=== PATIENT | female | born 1955 | race Caucasian/White ===

== ENCOUNTER → 2020-02-25 09:49 | Outpatient (BNVA) | payer OTHER, SELFPAY | PROVIDERS: PCP Internal Medicine; Referring Provider Internal Medicine; Visit Provider Nurse Practitioner Gerontology | DX: E10.65 Type 1 diabetes mellitus with hyperglycemia (principal); E10.40 Type 1 diabetes mellitus with diabetic neuropathy, unspecified; E78.5 Hyperlipidemia, unspecified; E03.9 Hypothyroidism, unspecified; Z96.41 Presence of insulin pump (external) (internal) | CPT/HCPCS: 82947 ==

== ENCOUNTER → 2020-03-24 11:15 | Outpatient (BNVA) | payer OTHER, SELFPAY | PROVIDERS: PCP Internal Medicine; Visit Provider Nurse Practitioner Gerontology | DX: E10.65 Type 1 diabetes mellitus with hyperglycemia (principal); E10.40 Type 1 diabetes mellitus with diabetic neuropathy, unspecified; Z96.41 Presence of insulin pump (external) (internal); E03.9 Hypothyroidism, unspecified; Z79.899 Other long term (current) drug therapy | CPT/HCPCS: 82947 ==

== ENCOUNTER 2020-04-07 09:33 | Day surgery (SDC) | payer OTHER, SELFPAY ==
[2020-04-02 09:59] VITALS: BMI 27.9
--- NOTE | 2020-04-04 09:47 | P.CONAN_ITS ---
Documented by User: Esme Jaimes 04/04/20 09:50 HPI - Anesthesia Eval Consult details Narrative: 64yo F for Colonoscopy PMFSH Past Medical History Medical History Carpal tunnel syndrome Depression with anxiety Hx of small bowel obstruction Hyperlipidemia LDL goal <100 Hypothyroidism, unspecified Type 1 diabetes mellitus with diabetic neuropathy Type 1 diabetes mellitus with hyperglycemia Family History Family History Father CVD (cardiovascular disease) CHF (congestive heart failure) Mother Diabetes mellitus Paternal Grandfather Diabetes mellitus Paternal Grandmother Diabetes mellitus Sister Diabetes mellitus Surgical History Surgical History Hx laparoscopic cholecystectomy Hx of colonoscopy Hx of esophagogastroduodenoscopy Hx of hysterectomy Social History Social History Are you a primary rn primary care to a significant other at home: No Do you presently have visiting nurse or other home services: No Smoking Status: Former smoker Smoking Quit Date: 35 yrs ago Use of substances other than those prescribed or required for medical reasons: Yes Substance Use Frequency: Occasionally Advance Directives: No Advance Directives Information Provided: No Advance Directives on File: No Meds Allergies Allergy/AdvReac Type Severity Reaction Status Date / Time No Known Allergies Allergy Unverified 02/25/20 10:25 [No Known Allergies*] Home Medications Medication Instructions Recorded Confirmed Type aspirin 81 mg tablet,delayed 81 mg PO DAILY 02/25/20 04/02/20 History release lisinopril 10 mg tablet 10 mg PO DAILY 02/25/20 04/02/20 History simvastatin 20 mg tablet 20 mg PO BEDTIME 02/25/20 04/02/20 History citalopram 40 mg tablet 40 mg PO DAILY tab 03/24/20 04/02/20 History multivitamin 1 tab PO DAILY 04/02/20 04/02/20 History Exam Exam Date and Time: April 04, 2020 0947 Height,Weight and Vital Signs: Height 5 ft 4 in Weight 73.936 kg Pertinent Lab Results Pertinent Lab Results: Laboratory Tests 01/14/20 01/14/20 08:10 10:31 WBC 13.3 H Hgb 13.4 Hct 39.0 Plt Count 272 Sodium 140 Potassium 4.1 Chloride 109 H BUN 22 H Creatinine 0.94 Assessment and Plan Assessment Anesthesia Assessment: Chart Reviewed Documented by User: Basil Ramos 04/07/20 10:43 PMFSH Past Medical History Medical History Carpal tunnel syndrome Depression with anxiety Hx of small bowel obstruction Hyperlipidemia LDL goal <100 Hypothyroidism, unspecified Type 1 diabetes mellitus with diabetic neuropathy Type 1 diabetes mellitus with hyperglycemia Family History Family History Father CVD (cardiovascular disease) CHF (congestive heart failure) Mother Diabetes mellitus Paternal Grandfather Diabetes mellitus Paternal Grandmother Diabetes mellitus Sister Diabetes mellitus Surgical History Surgical History Hx laparoscopic cholecystectomy Hx of colonoscopy Hx of esophagogastroduodenoscopy Hx of hysterectomy Social History Social History Are you a primary rn primary care to a significant other at home: No Do you presently have visiting nurse or other home services: No Smoking Status: Former smoker Smoking Quit Date: 35 yrs ago Use of substances other than those prescribed or required for medical reasons: Yes Substance Use Frequency: Occasionally Advance Directives: No Advance Directives Information Provided: No Advance Directives on File: No Meds Allergies Allergy/AdvReac Type Severity Reaction Status Date / Time No Known Allergies Allergy Unverified 02/25/20 10:25 [No Known Allergies*] Home Medications Medication Instructions Recorded Confirmed Type aspirin 81 mg tablet,delayed 81 mg PO DAILY 02/25/20 04/02/20 History release lisinopril 10 mg tablet 10 mg PO DAILY 02/25/20 04/02/20 History simvastatin 20 mg tablet 20 mg PO BEDTIME 02/25/20 04/02/20 History citalopram 40 mg tablet 40 mg PO DAILY tab 03/24/20 04/02/20 History multivitamin 1 tab PO DAILY 04/02/20 04/02/20 History Exam Airway Mallampati Class: II TM Dist: >3cm Neck ROM: Full Loose/Missing/Broken Teeth: No Heart: rrr+[id number] Lungs: cta b/l Assessment and Plan Assessment Anesthesia Assessment: Anesthesia Plan Discussed, PAT Visit and Chart Reviewed Final Anesthetic Review NPO: Yes ASA Class: III Final Preanesthetic Review: No Changes in Pt Med Stat, Meds/Allgs Chart Reviewed, Consent Obtained/Reviewed and Anes Risks/Benef Reviewed Patient Risk: Intermediate Procedure Risk: Low Assessment/Block/Sedation in SS: Assess/Block/Sedation-SS Anesthetic Plan Anesthetic Plan: MAC: Disposition: Standard PACU
[2020-04-07 10:03] VITALS: BP 110/74; PULSE 73; RESP 18; TEMP 36.2; O2SAT 99
[2020-04-07] MEDS: Lactated Ringers 1,000 ML 100 ML IVCONT (10:32)
[2020-04-07 12:06] VITALS: BP 131/94; PULSE 67; RESP 16; TEMP 36.4; O2SAT 98
[2020-04-07] MEDS: ondansetron HCL 4 MG/2 ML VIAL IVPUSH (12:07)
--- NOTE | 2020-04-07 12:07 | PM.OP ---
Brief Operative Note Date of Service: 04/07/20 Pre-op diagnosis: Screening Post-op diagnosis: other (Diverticulosis, Internal hemorrhoids) Procedure: Colonoscopy to cecum and TI Surgeon: Arden Griffin Anesthesia: MAC Estimated blood loss (mL): 0 Pathology: none sent Condition: stable Disposition: PACU
[2020-04-07 12:21] VITALS: BP 107/58; PULSE 62; RESP 18; TEMP 36.4; O2SAT 99
--- NOTE | 2020-04-07 12:22 | OP_ITS ---
SURGEON: Arden Griffin MD INDICATIONS: The patient presents for evaluation of colorectal cancer screening. Full consent has been obtained from her for this, including risks of bleeding and perforation. PREOPERATIVE DIAGNOSIS: Colorectal cancer screening. POSTOPERATIVE DIAGNOSIS: PROCEDURE PERFORMED: Colonoscopy to cecum and terminal ileum. ESTIMATED BLOOD LOSS: COMPLICATIONS: ANESTHESIA: Monitored anesthesia care. ASSISTANTS: SPECIMENS: POSTOPERATIVE DIAGNOSES: Colorectal cancer screening, diverticulosis and internal hemorrhoids. DESCRIPTION OF PROCEDURE: The patient was placed in the left lateral decubitus position. The digital rectal exam revealed no abnormalities. The Olympus video pediatric colonoscope was entered into the rectum and advanced easily to the cecum. Once in the cecum, I did identify normal-appearing cecal pouch with appendiceal orifice and a normal-appearing ileocecal valve. The terminal ileum was cannulated and appeared normal. The scope was withdrawn back in the colon. The entire cecum and ileocecal valve appeared normal. The scope was slowly withdrawn assessing all mucosal surfaces carefully. Preparation was excellent. I did not visualize any sign of polyps, colitis, nor angiodysplasia. There was a mild amount of sigmoid diverticulosis. In the rectum, scope was retroflexed visualizing small internal hemorrhoids, but no other pathology. The rectal mucosa appeared normal. The scope was straightened out and withdrawn from the patient. She tolerated the procedure well and was returned to the recovery area in stable condition. IMPRESSION: 1. Sigmoid diverticulosis. 2. Internal hemorrhoids. PLAN: Given the patient's negative exam and negative family history of colon cancer, I would recommend a repeat screening colonoscopy in 10 years for further screening. She will otherwise see me on a p.r.n. basis. MD CRISTIAN Colvin/KIKI / [phone]
--- NOTE | 2020-04-07 12:33 | HO.POSTANES ---
Post Anesthesia Evaluation Post Anesthesia Evaluation Vital Signs: Vital Signs Temp Pulse Resp BP Pulse Ox 04/07/20 12:21 97.6 F 62 18 107/58 L 99 04/07/20 12:06 97.6 F 67 16 131/94 H 98 04/07/20 10:03 97.1 F 73 18 110/74 99 Anesthesia: Monitored Mental Status: Awake Pain Control: Satisfactory Nausea/Vomiting: None Hydration: Adequate Anesthesia-Related Issues: No Anes. Related Issues
== END 2020-04-07 14:01 | disposition home or self-care (01) ==
PROVIDERS: PCP Internal Medicine; Visit Provider Internal Medicine
PROC: 0DJD8ZZ Inspection of Lower Intestinal Tract, Via Natural or Artificial Opening Endoscopic (ICD-10-PCS; CPT 45378; principal; 2020-04-07 10:30)
DX: Z12.11 Encounter for screening for malignant neoplasm of colon (principal); K57.30 Diverticulosis of large intestine without perforation or abscess without bleeding; K64.8 Other hemorrhoids; E10.9 Type 1 diabetes mellitus without complications; Z96.41 Presence of insulin pump (external) (internal); Z80.0 Family history of malignant neoplasm of digestive organs
CPT/HCPCS: 45378; J2405

== ENCOUNTER → 2020-05-09 10:56 | Outpatient (BNVA) | payer OTHER, SELFPAY | PROVIDERS: PCP Internal Medicine; Visit Provider Dietitian, Registered | DX: Z76.89 Persons encountering health services in other specified circumstances (principal) ==

== ENCOUNTER → 2020-06-06 11:28 | Outpatient (BNVA) | payer OTHER, SELFPAY | PROVIDERS: PCP Internal Medicine; Visit Provider Dietitian, Registered ==

== ENCOUNTER 2020-09-02 09:04 | Outpatient (REF) | payer OTHER, SELFPAY ==
--- NOTE | ~2020-09-02 | XR_ITS ---
EXAMINATION: RIGHT KNEE AND RIGHT FOOT. CLINICAL INFORMATION: Unspecified fall. Pain. COMPARISON: None TECHNIQUE: 4 views right knee and 3 views right foot. FINDINGS: RIGHT KNEE: There is moderate suprapatellar joint effusion. Mild reduction in the medial and patellar femoral compartment joint space seen. There is no visible acute fracture, dislocation or subluxation seen. RIGHT FOOT: There is no visible acute fracture, dislocation or subluxation seen. The soft tissues are normal. The ankle mortise and subtalar joints are normal. There is a small retrocalcaneal enthesophyte. XR/XR foot RT min 3V IMPRESSION: Mild degenerative changes medial and patellofemoral compartments with moderate suprapatellar joint effusion. No acute fracture, dislocation or loose bodies seen. Small retrocalcaneal enthesophyte. No visible acute fracture or dislocation right foot.
--- NOTE | ~2020-09-02 | XR_ITS ---
EXAMINATION: RIGHT KNEE AND RIGHT FOOT. CLINICAL INFORMATION: Unspecified fall. Pain. COMPARISON: None TECHNIQUE: 4 views right knee and 3 views right foot. FINDINGS: RIGHT KNEE: There is moderate suprapatellar joint effusion. Mild reduction in the medial and patellar femoral compartment joint space seen. There is no visible acute fracture, dislocation or subluxation seen. RIGHT FOOT: There is no visible acute fracture, dislocation or subluxation seen. The soft tissues are normal. The ankle mortise and subtalar joints are normal. There is a small retrocalcaneal enthesophyte. XR/XR knee RT 4V IMPRESSION: Mild degenerative changes medial and patellofemoral compartments with moderate suprapatellar joint effusion. No acute fracture, dislocation or loose bodies seen. Small retrocalcaneal enthesophyte. No visible acute fracture or dislocation right foot.
== END 2020-09-02 09:05 | disposition home or self-care (01) ==
LOC: HO.HMGCX 09:04
PROVIDERS: PCP Internal Medicine; Visit Provider Nurse Practitioner Family
DX: M79.671 Pain in right foot (principal); M25.561 Pain in right knee; Z91.81 History of falling
CPT/HCPCS: 73564; 73630

== ENCOUNTER → 2020-09-05 08:10 | Outpatient (BNVA) | payer OTHER, SELFPAY | PROVIDERS: Visit Provider Physician Assistant ==

== ENCOUNTER → 2020-10-16 08:30 | Outpatient (BNVA) | payer OTHER, SELFPAY | PROVIDERS: PCP Internal Medicine; Visit Provider Nurse Practitioner Gerontology | DX: E10.65 Type 1 diabetes mellitus with hyperglycemia (principal); E10.40 Type 1 diabetes mellitus with diabetic neuropathy, unspecified; E03.9 Hypothyroidism, unspecified; E78.5 Hyperlipidemia, unspecified | CPT/HCPCS: 82947 ==

== ENCOUNTER → 2021-02-25 14:58 | Outpatient (BNVA) | payer OTHER, SELFPAY | PROVIDERS: PCP Internal Medicine; Visit Provider Registered Nurse Diabetes Educator ==

== ENCOUNTER → 2021-03-19 07:58 | Outpatient (BNVA) | payer OTHER, SELFPAY | PROVIDERS: PCP Internal Medicine; Visit Provider Registered Nurse Diabetes Educator ==

== ENCOUNTER → 2021-04-02 08:31 | Outpatient (BNVA) | payer OTHER, SELFPAY | PROVIDERS: PCP Internal Medicine; Visit Provider Registered Nurse Diabetes Educator ==

== ENCOUNTER 2021-06-23 08:01 | Outpatient (REF) | payer OTHER, SELFPAY ==
[2021-06-23 12:15] LABS: Free T4 (Free Thyroxine) 1.01 ng/dL (0.71-1.85); Thyroid Stimulating Hormone 9.78 uIU/mL (0.32-4.0)
[2021-06-23 12:17] LABS: Alanine Aminotransferase 39 U/L (0-31); Albumin Level 4.2 g/dL (3.5-5.0); Alkaline Phosphatase 100 U/L (39-117); Anion Gap 13 (12-20); Aspartate Amino Transferase 31 U/L (5-31); Bilirubin Total 0.5 mg/dL (0.0-1.0); Blood Urea Nitrogen 14 mg/dL (9-16); Calcium 9.6 mg/dL (8.4-10.2); Carbon Dioxide 27 mmol/L (22-29); Chloride 103 mmol/L (96-108); Cholesterol 164 mg/dL; Estimated Glomerular Filt Rate 53; Glucose Fasting 233 mg/dL (60-99); HDL Cholesterol 78 mg/dL; LDL Cholesterol Calculated 73 mg/dl; Potassium 4.5 mmol/L (3.3-5.1); Sodium 138 mmol/L (135-145); Total Protein 6.7 g/dL (6.5-8.0); Triglycerides 66 mg/dL
[2021-06-23 12:37] LABS: Creatinine Urine 92.47 mg/dL; Microalbumin Urine < 5.0 mg/L
== END 2021-06-23 08:02 | disposition home or self-care (01) ==
LOC: HO.HMGCLDS 08:01
PROVIDERS: PCP Internal Medicine; Visit Provider Nurse Practitioner Gerontology
DX: E10.65 Type 1 diabetes mellitus with hyperglycemia (principal); E03.9 Hypothyroidism, unspecified
CPT/HCPCS: 36415; 80053; 80061; 82043; 84439; 84443

== ENCOUNTER → 2021-07-15 08:34 | Outpatient (BNVA) | payer OTHER, SELFPAY | PROVIDERS: PCP Internal Medicine; Visit Provider Nurse Practitioner Gerontology | DX: E10.65 Type 1 diabetes mellitus with hyperglycemia (principal); E10.40 Type 1 diabetes mellitus with diabetic neuropathy, unspecified; E78.5 Hyperlipidemia, unspecified; E03.9 Hypothyroidism, unspecified; E66.09 Other obesity due to excess calories; Z68.30 Body mass index [BMI] 30.0-30.9, adult; Z96.41 Presence of insulin pump (external) (internal) | CPT/HCPCS: 82947; 83036 ==

== ENCOUNTER → 2021-10-15 08:19 | Outpatient (BNVA) | payer OTHER, SELFPAY | PROVIDERS: PCP Internal Medicine; Visit Provider Nurse Practitioner Gerontology | DX: E10.65 Type 1 diabetes mellitus with hyperglycemia (principal); E10.40 Type 1 diabetes mellitus with diabetic neuropathy, unspecified; E78.5 Hyperlipidemia, unspecified; E03.9 Hypothyroidism, unspecified; Z79.4 Long term (current) use of insulin; Z96.41 Presence of insulin pump (external) (internal) | CPT/HCPCS: 82947; 83036 ==

== ENCOUNTER 2021-12-28 16:02 | Outpatient (REF) | payer OTHER, SELFPAY ==
--- NOTE | ~2021-12-28 | XR_ITS ---
EXAMINATION: XR CHEST CLINICAL INFORMATION: Covid 19 COMPARISON: Chest 05/14/2019 TECHNIQUE: 2 views of the chest were obtained. FINDINGS: No significant abnormality is noted involving the heart, lungs, mediastinum, bony thorax or soft tissues. XR/XR chest 2V IMPRESSION: Unremarkable chest examination.
== END 2021-12-28 16:03 | disposition home or self-care (01) ==
LOC: HO.XRAY 16:02
PROVIDERS: PCP Internal Medicine; Visit Provider Internal Medicine
DX: U07.1 COVID-19 (principal)
CPT/HCPCS: 71046

== ENCOUNTER → 2022-01-19 08:55 | Outpatient (BNVA) | payer OTHER, SELFPAY | PROVIDERS: PCP Internal Medicine; Visit Provider Internal Medicine Endocrinology, Diabetes & Metabolism | DX: E10.40 Type 1 diabetes mellitus with diabetic neuropathy, unspecified (principal); E03.9 Hypothyroidism, unspecified; Z79.4 Long term (current) use of insulin; Z96.41 Presence of insulin pump (external) (internal) | CPT/HCPCS: 82947; 83036 ==

== ENCOUNTER 2022-03-10 07:58 | Outpatient (AMB) | payer OTHER, SELFPAY ==
--- NOTE | 2022-03-10 08:43 | MHC.AMDMED ---
Intake Intake Visit Reasons: DM with pump and sensor Allergies No Known Allergies [No Known Allergies*] Allergy (Verified 06/15/23 08:50) HPI Comprehensive Diabetes Asmnt Most Recent Diabetes Results: Cholesterol 174 mg/dL 10/04/22 HDL Cholesterol 75 mg/dL 10/04/22 Triglycerides 68 mg/dL 10/04/22 Creatinine 0.93 mg/dL (0.5-1.4) 10/04/22 Blood Urea Nitrogen 12 mg/dL (9-16) 10/04/22 Sodium 142 mmol/L (135-145) 10/04/22 Potassium 4.4 mmol/L (3.3-5.1) 10/04/22 Chloride 106 mmol/L (96-108) 10/04/22 Carbon Dioxide 28 mmol/L (22-29) 10/04/22 Calcium 9.6 mg/dL (8.4-10.2) 10/04/22 AST 37 U/L (5-31) H 10/04/22 ALT 32 U/L (0-31) H 10/04/22 Total Protein 6.7 g/dL (6.5-8.0) 10/04/22 Albumin 4.0 g/dL (3.5-5.0) 10/04/22 [facility] Medical History (Updated 03/01/23 @ 11:32 by Daniel Wayne MD) Obesity due to excess calories Hx of small bowel obstruction Carpal tunnel syndrome Depression with anxiety Type 1 diabetes mellitus with hyperglycemia Type 1 diabetes mellitus with diabetic neuropathy Hyperlipidemia LDL goal <100 Hypothyroidism, unspecified Surgical History Hx of esophagogastroduodenoscopy Hx laparoscopic cholecystectomy Hx of hysterectomy Hx of colonoscopy Family History Father CVD (cardiovascular disease) CHF (congestive heart failure) Mother Diabetes mellitus Paternal Grandfather Diabetes mellitus Paternal Grandmother Diabetes mellitus Sister Diabetes mellitus Pancreatic cancer Brother Pancreatic cancer Social History Household Members: Significant Other Housing: House Are you a primary care transport nurse to a significant other at home: No Do you presently have visiting nurse or other home services: No Alcohol intake: current Alcohol intake frequency: holidays/special occasions only Patient Tobacco Use Status: Former Tobacco user Quit Date: 1984 e-Cigarette/Vaping Use: Never Used Second Hand Smoke Exposure: No service: No Current occupational status: employed Current occupation: [employer] Cognitive needs: No Hearing needs: No Vision needs: Yes (glass) Assessment & Plan Assessment & Plan (1) Type 1 diabetes mellitus with hyperglycemia: Code(s): E10.65 - Type 1 diabetes mellitus with hyperglycemia Plan: Patient presents for pump training for . The following topics were reviewed today: - When to change set or Pod - How to interpret data - Linking Meter and CGM to pump - Inserting infusion set or Pod site rotation - Rules about when to test for ketones - Sensor setting (if applicable) ??? High Alert: mg/dl ??? Low Alert: mg/dl ???Coefficient variation: - Start new sensor Basal rate(s) (units/hour) : 12AM? to 5AM? 0.9 units / hr 5AM? to 8AM? 0.840 units / hr 8AM? to 12PM? 0.960 units / hr 12PM? to 2PM? 0.9 units / hr 2PM? to 9PM? 0.9 units / hr 9PM? to 12AM? 0.880 units / hr Bolus setting Insulin Carbohydrate Ratio (s) 12AM? to 5AM? 1u:8CHO 5AM? to 8AM? ? 1u:8CHO 8AM? to 12PM? 1u:6CHO 12PM? to 2PM? 1u:4.5CHO 2PM? to 9PM? ? 1u:6CHO 9PM? to 12AM? 1u:8CHO ? Correction Factor / Sensitivity Factor 12AM? to 5AM? 1u:45 5AM? to 8AM? ? 1u:45 8AM? to 12PM? 1u:40 12PM? to 2PM? 1u:40 2PM? to 9PM? ? 1u:40 9PM? to 12AM? 1u:45 ? Active Insulin Time:? 4 hours Target(s): 12AM? to 12AM 120mg/dL Coding Level of Care Code Est Pt Level 1 (30002) Diagnoses Type 1 diabetes mellitus with hyperglycemia E10.65
== END 2022-03-10 08:51 | disposition home or self-care (01) ==
LOC: HO.ENCR 07:58
PROVIDERS: PCP Internal Medicine; Visit Provider Registered Nurse Diabetes Educator
DX: E10.65 Type 1 diabetes mellitus with hyperglycemia (principal)

== ENCOUNTER → 2022-03-10 07:58 | Outpatient (BNVA) | payer OTHER, SELFPAY | PROVIDERS: PCP Internal Medicine; Visit Provider Registered Nurse Diabetes Educator | DX: E10.65 Type 1 diabetes mellitus with hyperglycemia (principal); Z96.41 Presence of insulin pump (external) (internal) | CPT/HCPCS: 99211 ==

== ENCOUNTER 2022-04-20 07:47 | Outpatient (REF) | payer OTHER, SELFPAY ==
[2022-04-20 08:55] LABS: Anion Gap 10 (12-20); Blood Urea Nitrogen 15 mg/dL (9-16); Calcium 9.5 mg/dL (8.4-10.2); Carbon Dioxide 29 mmol/L (22-29); Chloride 105 mmol/L (96-108); Cholesterol 176 mg/dL; Estimated Glomerular Filt Rate > 60; Glucose Random 199 mg/dL (60-115); HDL Cholesterol 75 mg/dL; LDL Cholesterol Calculated 85 mg/dl; Potassium 4.5 mmol/L (3.3-5.1); Sodium 139 mmol/L (135-145); Triglycerides 83 mg/dL
[2022-04-20 09:09] LABS: Thyroid Stimulating Hormone 1.19 uIU/mL (0.32-4.0)
[2022-04-20 13:03] LABS: Free T4 (Free Thyroxine) 1.07 ng/dL (0.71-1.85)
== END 2022-04-20 07:48 | disposition home or self-care (01) ==
LOC: HO.LAB 07:47
PROVIDERS: PCP Internal Medicine; Visit Provider Internal Medicine Endocrinology, Diabetes & Metabolism
DX: E10.40 Type 1 diabetes mellitus with diabetic neuropathy, unspecified (principal); E03.9 Hypothyroidism, unspecified
CPT/HCPCS: 36415; 80048; 80061; 84439; 84443

== ENCOUNTER → 2022-04-21 08:09 | Outpatient (BNVA) | payer OTHER, SELFPAY | PROVIDERS: PCP Internal Medicine; Visit Provider Internal Medicine Endocrinology, Diabetes & Metabolism | DX: E03.9 Hypothyroidism, unspecified (principal); E10.40 Type 1 diabetes mellitus with diabetic neuropathy, unspecified | CPT/HCPCS: 82947; 83036 ==

== ENCOUNTER 2022-07-15 08:19 | Outpatient (REF) | payer OTHER, SELFPAY ==
--- NOTE | ~2022-07-15 | MM_ITS ---
EXAMINATION: MM SCREENING DIGITAL BREAST TOMOSYNTHESIS, BILATERAL CLINICAL INFORMATION: Screening. Asymptomatic. The lifetime risk of breast cancer based on the Tyrer-Cuzick Model is 5.2%. COMPARISON: Mammography: May 24, 2015 and studies dating back to June 23, 2012 TECHNIQUE: Digital breast tomosynthesis is performed in both the craniocaudal and mediolateral oblique views along with computer-aided detection (CAD). Synthesized 2D images are generated from the tomosynthesis. FINDINGS: The breasts are heterogeneously dense, which may obscure small masses (ACR BI-RADS breast composition Category c). There are no significant masses, abnormal calcifications, or other abnormalities. MM/MM tomosynthesis screening BI IMPRESSION: No significant changes ASSESSMENT: BI-RADS 1: Negative RECOMMENDATION: Routine annual mammography screening. This patient's information was entered into a reminder system with a target due date for their next mammogram.
== END 2022-07-15 08:20 | disposition home or self-care (01) ==
LOC: HO.MAMMO 08:19
PROVIDERS: PCP Internal Medicine; Visit Provider Internal Medicine
DX: Z12.31 Encounter for screening mammogram for malignant neoplasm of breast (principal)
CPT/HCPCS: 77063; 77067

== ENCOUNTER 2022-10-04 07:54 | Outpatient (REF) | payer OTHER, SELFPAY ==
[2022-10-04 08:07] LABS: MANUAL DIFF FLAG NO
[2022-10-04 08:41] LABS: Basophils Percent Auto 0.5 % (0-2); Eosinophils Absolute Auto 0.4 X10*3/uL (0.0-0.4); Eosinophils Percent Auto 6.7 % (0-4); Hematocrit 39.2 % (37.0-47.0); Hemoglobin 12.8 g/dl (12.0-16.0); Imm Gran Abs Auto 0.02 X10*3/uL (0.00-0.03); Imm Gran Pct Auto 0.3 % (0.0-0.4); Lymphocytes Absolute Auto 1.8 X10*3/uL (1.2-4.9); Lymphocytes Percent Auto 27.4 % (20-40); Mean Corpuscular HGB Conc 32.7 g/dl (31.0-35.0); Mean Corpuscular Hemoglobin 29.3 pg (27.0-33.0); Mean Corpuscular Volume 89.7 fL (80.0-98.0); Mean Platelet Volume 10.8 fL (9.4-12.3); Monocytes Absolute Auto 0.4 X10*3/uL (0.1-1.2); Neutrophils Absolute Auto 3.9 x10*3/uL (2.0-8.3); Neutrophils Percent Auto 59.1 % (45-73); Platelet Count 239 X10*3/uL (160-400); Red Blood Count 4.37 X10*6/uL (4.20-5.50); Red Cell Distribution Width 13.2 % (11.0-16.0); White Blood Count 6.5 X10*3/uL (4.8-10.8)
[2022-10-04 08:50] LABS: Estimated Average Glucose 154 mg/dL
[2022-10-04 09:26] LABS: Alanine Aminotransferase 32 U/L (0-31); Alkaline Phosphatase 120 U/L (39-117); Anion Gap 12 (12-20); Aspartate Amino Transferase 37 U/L (5-31); Bilirubin Total 0.6 mg/dL (0.0-1.0); Blood Urea Nitrogen 12 mg/dL (9-16); Calcium 9.6 mg/dL (8.4-10.2); Carbon Dioxide 28 mmol/L (22-29); Chloride 106 mmol/L (96-108); Cholesterol 174 mg/dL; Estimated Glomerular Filt Rate > 60; Glucose Fasting 156 mg/dL (60-99); HDL Cholesterol 75 mg/dL; LDL Cholesterol Calculated 86 mg/dl; Potassium 4.4 mmol/L (3.3-5.1); Sodium 142 mmol/L (135-145); Total Protein 6.7 g/dL (6.5-8.0); Triglycerides 68 mg/dL
[2022-10-04 09:30] LABS: Thyroid Stimulating Hormone 2.85 uIU/mL (0.32-4.0)
== END 2022-10-04 07:55 | disposition home or self-care (01) ==
LOC: HO.LAB 07:54
PROVIDERS: PCP Internal Medicine; Visit Provider Internal Medicine
DX: D64.9 Anemia, unspecified (principal); N28.9 Disorder of kidney and ureter, unspecified; E78.5 Hyperlipidemia, unspecified; R73.9 Hyperglycemia, unspecified; E03.9 Hypothyroidism, unspecified
CPT/HCPCS: 36415; 80053; 80061; 83036; 84443; 85025

== ENCOUNTER → 2022-10-27 11:06 | Outpatient (BNVA) | payer OTHER, SELFPAY | PROVIDERS: PCP Internal Medicine; Visit Provider Internal Medicine Endocrinology, Diabetes & Metabolism | DX: E10.40 Type 1 diabetes mellitus with diabetic neuropathy, unspecified (principal); E03.9 Hypothyroidism, unspecified; Z79.899 Other long term (current) drug therapy; Z96.41 Presence of insulin pump (external) (internal) | CPT/HCPCS: 82947 ==

== ENCOUNTER 2022-12-20 09:07 | Outpatient (AMB) | payer OTHER, SELFPAY ==
[2022-12-20 09:11] VITALS: BP 130/68; PULSE 86; O2SAT 99; BMI 29.7
--- NOTE | 2022-12-20 09:11 | MHC.PC.OV ---
Vital Signs 12/20/22 09:11 Height 5 ft 4 in Weight 173 lb BMI 29.7 BP 130/68 Blood Pressure Location Lt brachial Position Sitting Pulse 86 Pulse Source Pulse Oximeter Temp Source Skin Pulse Oximetry (%) 99 Oxygen Delivery Method Room Air Intake Visit Reasons: Diabetic care Sales Order Clerk Required: No Allergies No Known Allergies [No Known Allergies*] Allergy (Verified 12/20/22 09:11) Medication List - Last Reconciled 12/20/22 by Daniel Wayne MD blood sugar diagnostic (FreeStyle Lite Strips) As directed four times a day blood-glucose meter (FreeStyle Lite Meter kit) As directed blood-glucose sensor (Dexcom G6 Sensor device) As directed one every 10 days blood-glucose transmitter (Dexcom G6 Transmitter device) As directed citalopram 40 mg PO DAILY gabapentin 300 mg (3 x 100 mg) PO BEDTIME glucagon 3 mg/actuation (Baqsimi) 3 mg intranasal ONCE insulin glargine (Basaglar KwikPen U-100 Insulin) 21 units (0.21 mL) subcut DAILY insulin lispro up to 75 units SQ daily by pump subcutaneously daily; levothyroxine 100 mcg PO DAILY lisinopril 10 mg PO DAILY multivitamin 1 tab PO DAILY naproxen 500 mg PO BID PRN pen needle, diabetic (BD Ultra-Fine Tania Pen Needle) As directed once daily simvastatin 20 mg PO BEDTIME Tobacco use date assessed: 12/20/22 Fall risk assessment: No Falls in past year Last assessed Fall Risk: 12/20/22 Dental Screening Dental Screen Date: 12/20/22 Did you have a dental visit in the last 12 months?: Yes Did you have a dental problem in the last 6 months where you did not have access to dental care?: No Was dental information given to patient?: Patient has dentist HPI Diabetic care HPI Details IDDM HTN and depression on rx; requests transfer to another [facility]. [facility] Medical History (Updated 12/20/22 @ 10:32 by Daniel Wayne MD) Carpal tunnel syndrome Depression with anxiety Hx of small bowel obstruction Hyperlipidemia LDL goal <100 Hypothyroidism, unspecified Obesity due to excess calories Type 1 diabetes mellitus with diabetic neuropathy Type 1 diabetes mellitus with hyperglycemia Surgical History Hx laparoscopic cholecystectomy Hx of colonoscopy Hx of esophagogastroduodenoscopy Hx of hysterectomy Family History Father CVD (cardiovascular disease) CHF (congestive heart failure) Mother Diabetes mellitus Paternal Grandfather Diabetes mellitus Paternal Grandmother Diabetes mellitus Sister Diabetes mellitus Pancreatic cancer Brother Pancreatic cancer Social History Household Members: Significant Other Housing: House Are you a primary animal care service worker to a significant other at home: No Do you presently have visiting nurse or other home services: No Alcohol intake: current Alcohol intake frequency: holidays/special occasions only Patient Tobacco Use Status: Former Tobacco user Quit Date: 1984 e-Cigarette/Vaping Use: Never Used Second Hand Smoke Exposure: No service: No Current occupational status: employed Current occupation: [employer] Cognitive needs: No Hearing needs: No Vision needs: Yes (glass) Questionnaire PHQ-9 Over the last 2 weeks, how often have you been bothered by any of the following problems? Depression Screening Interpretation: Positive Source: Developed by Drs. Arden Olivia, Noé Shetty and colleagues, with an educational spencer from [email or web address]. Thrive Questionnaire Date Thrive assessed: 06/02/22 Currently or been in a relationship where the following occur: no concerns reported AUDIT C Alcohol Use Questionnaire (AUDIT-C) 1. How often do you have a drink containing alcohol?: 2-3 times a week 2. How many drinks containing alcohol do you have on a typical day when you are drinking?: 1 or 2 3. How often do you have six or more drinks on one occasion?: Never Total Score: 3 Score Reviewed/Action Taken: Yes JN-7 AMB Questionnaire JN-7 Date JN - 7 assessed: 06/02/22 Source: Developed by Drs. Arden Olivia, Noé Shetty and colleagues, with an educational spencer from [email or web address]. Review of Systems Const Denies chills, Denies headache(s) and Denies weight loss ENT Denies headache(s) Card Denies chest pain, Denies syncope, Denies irregular heart rhythm and Denies dyspnea Resp Denies chest congestion, Denies cough and Denies dyspnea GI Denies abdominal pain, Denies change in stool character, Denies nausea and Denies vomiting Musc Denies deformity and Denies joint swelling Neuro Denies syncope and Denies headache(s) Physical exam (Primary Care) Vital Signs: Last Vital Signs Pulse 86 12/20/22 09:11 BP 130/68 12/20/22 09:11 Pulse Ox 99 12/20/22 09:11 Oxygen Delivery Method Room Air 12/20/22 09:11 BMI result Body Mass Index 29.7 Tobacco/Smoking Status: Tobacco use Status Tobacco use date assessed 12/20/22 12/20/22 09:17 Patient Tobacco Use Status Former Tobacco user 12/20/22 09:17 e-Cigarette/Vaping Use Never Used 12/20/22 09:17 Depression Screening Interpretation: Positive Thrive Assessment: Date of Thrive Assessment Date Thrive assessed 06/02/22 12/20/22 09:17 Currently or been in a relationship where the following occur: no concerns reported Advance Care Planning discussion: On file, no changes Forms completed: Health Care Proxy Const General: cooperative, healthy appearing and no acute distress Orientation/consciousness: oriented to person, oriented to place and oriented to time HENMT Head: Yes normal to inspection, Yes normocephalic and Yes atraumatic Mouth: Normal oral and palatal mucosa present and tongue normal Throat: Yes posterior oropharynx normal and Yes uvula midline Eyes General: appearance normal, both eyes and all related structures Neck Neck: Yes normal visual inspection, Yes full ROM and Yes no lymphadenopathy Thyroid: Thyroid normal Carotids: normal carotid upstroke Chest Chest palpation & inspection: normal inspection of the chest Resp Effort & Inspection: normal respiratory effort and able to speak in complete sentences Auscultation: clear to auscultation bilaterally Cardio Jugular venous distension: no JVD Palpation: normal PMI Rate: regular rate Rhythm: regular rhythm Heart sounds: S1 normal heart sound present and S2 normal heart sound present GI Inspection: Yes normal to inspection Palpation (GI): Soft to palpation and No hepatosplenomegaly present Auscultation: normal bowel sounds General: Yes no CVA tenderness Back/Spine/Pelvis Back: no CVA tenderness Skin General skin exam: no rashes or lesions noted Neuro General: oriented to person, oriented to place and oriented to time Extrem General: Yes normal to inspection and Yes full ROM Assessment and Plan Assessment & Plan (1) Type 1 diabetes mellitus with hyperglycemia: Code(s): E10.65 - Type 1 diabetes mellitus with hyperglycemia Plan: stable; same rx (2) Depression with anxiety: Code(s): F41.8 - Other specified anxiety disorders Plan: stable; same rx (3) Hypertension: Code(s): I10 - Essential (primary) hypertension Plan: stable; same rx Orders: Orders Comprehensive [facility]. Panel Fast Today N28.9 - Disorder of kidney and ureter, unspecified Hemoglobin A1c Today R73.9 - Hyperglycemia, unspecified Lipid Panel Today E78.5 - Hyperlipidemia, unspecified Thyroid Stimulating Hormone Today E03.9 - Hypothyroidism, unspecified Microalbumin, Random (w Creat) Today E11.69 - Type 2 diabetes mellitus with other specified complication, E66.01 - Morbid (severe) obesity due to excess calories Complete Blood Count Auto Diff Today D64.9 - Anemia, unspecified Referrals Endocrinology Referral E11.9 - Type 2 diabetes mellitus without complications Coding Level of Care Code Est Pt Level 4 (13201) Diagnoses Type 1 diabetes mellitus with hyperglycemia E10.65 Depression with anxiety F41.8 Hypertension I10 Additional Codes Vital Signs *Quality* - Advance Care Planning discussion: On file, no changes ([id number])
== END 2022-12-20 09:57 | disposition home or self-care (01) ==
PROVIDERS: PCP Internal Medicine; Visit Provider Internal Medicine
DX: E10.65 Type 1 diabetes mellitus with hyperglycemia (principal); F41.8 Other specified anxiety disorders; I10 Essential (primary) hypertension; Z00.00 Encounter for general adult medical examination without abnormal findings
CPT/HCPCS: 1123F; 99214

== ENCOUNTER 2023-03-01 10:39 | Outpatient (AMB) | payer OTHER, SELFPAY ==
--- NOTE | 2023-03-01 10:34 | A.OFFPC_ITS ---
Intake Visit Reasons: Medication follow up [phone] Intake Note: Patient is here to follow up on medication review. Yardage Control Operator Forming Required: No Adobe Ball Mixer: Not Required per policy Accompanied by: Self / Same As Patient Allergies No Known Allergies [No Known Allergies*] Allergy (Verified 03/01/23 10:36) Medication List - Last Reconciled 03/01/23 by Daniel Wayne MD blood sugar diagnostic (FreeStyle Lite Strips) As directed four times a day blood-glucose meter (FreeStyle Lite Meter kit) As directed blood-glucose sensor (Dexcom G6 Sensor device) As directed one every 10 days blood-glucose transmitter (Dexcom G6 Transmitter device) As directed citalopram 40 mg PO DAILY gabapentin 300 mg (3 x 100 mg) PO BEDTIME glucagon 3 mg/actuation (Baqsimi) 3 mg intranasal ONCE insulin lispro up to 75 units SQ daily by pump subcutaneously daily; levothyroxine 100 mcg PO DAILY lisinopril 10 mg PO DAILY multivitamin 1 tab PO DAILY naproxen 500 mg PO BID PRN simvastatin 20 mg PO BEDTIME Tobacco use date assessed: 12/20/22 Fall risk assessment: No Falls in past year Last assessed Fall Risk: 03/01/23 Dental Screening Dental Screen Date: 03/01/23 Did you have a dental visit in the last 12 months?: Yes Did you have a dental problem in the last 6 months where you did not have access to dental care?: No Was dental information given to patient?: Patient has dentist HPI Medication follow up [phone] HPI Details on citalopram for depression but needs an increased dose PFSH Medical History (Updated 03/01/23 @ 11:32 by Daniel Wayne MD) Obesity due to excess calories Hx of small bowel obstruction Carpal tunnel syndrome Depression with anxiety Type 1 diabetes mellitus with hyperglycemia Type 1 diabetes mellitus with diabetic neuropathy Hyperlipidemia LDL goal <100 Hypothyroidism, unspecified Surgical History Hx of esophagogastroduodenoscopy Hx laparoscopic cholecystectomy Hx of hysterectomy Hx of colonoscopy Family History Father CVD (cardiovascular disease) CHF (congestive heart failure) Mother Diabetes mellitus Paternal Grandfather Diabetes mellitus Paternal Grandmother Diabetes mellitus Sister Diabetes mellitus Pancreatic cancer Brother Pancreatic cancer Social History Household Members: Significant Other Housing: House Are you a primary direct support professional caregiver to a significant other at home: No Do you presently have visiting nurse or other home services: No Alcohol intake: current Alcohol intake frequency: holidays/special occasions only Patient Tobacco Use Status: Former Tobacco user Quit Date: 1984 e-Cigarette/Vaping Use: Never Used Second Hand Smoke Exposure: No service: No Current occupational status: employed Current occupation: [employer] Cognitive needs: No Hearing needs: No Vision needs: Yes (glass) Questionnaire Thrive Questionnaire Date Thrive assessed: 06/02/22 JN-7 AMB Questionnaire JN-7 Date JN - 7 assessed: 06/02/22 Source: Developed by Drs. Arden Olivia, Ynes Sprague, Noé Lamas and colleagues, with an educational spencer from [employer]. Review of Systems Const Denies chills, Denies headache(s) and Denies weight loss ENT Denies headache(s) Card Denies chest pain, Denies syncope, Denies irregular heart rhythm and Denies dyspnea Resp Denies chest congestion, Denies cough and Denies dyspnea GI Denies abdominal pain, Denies change in stool character, Denies nausea and Denies vomiting Musc Denies deformity and Denies joint swelling Neuro Denies syncope and Denies headache(s) Physical exam (Primary Care) Tobacco/Smoking Status: Tobacco use Status Tobacco use date assessed 12/20/22 03/01/23 10:35 Patient Tobacco Use Status Former Tobacco user 03/01/23 10:35 e-Cigarette/Vaping Use Never Used 03/01/23 10:35 Thrive Assessment: Date of Thrive Assessment Date Thrive assessed 06/02/22 03/01/23 10:35 Telehealth Telehealth Location of provider rendering services: practice address Location of patient: address on file Patient Identification confirmed using: Name, : Yes Telehealth method: voice only Patient verbally consented to treatment: Yes Patient verbally consented to billing insurance company: Yes Patient informed of any privacy concerns related to visit: Yes Minutes spent on Phone/Video with Pt.: 15 (telephone) Assessment and Plan Assessment & Plan (1) Depression: Code(s): F32.A - Depression, unspecified Plan: increase rx Medications: Changed From citalopram 40 mg PO DAILY 90 tabs 8RF To citalopram 60 mg (1.5 x 40 mg) PO DAILY 135 tabs 8RF Coding Level of Care Code Tele Est Pt Level 3 (88693) Diagnoses Depression F32.A
== END 2023-03-01 11:56 | disposition home or self-care (01) ==
LOC: HO.HMGH 10:39
PROVIDERS: PCP Internal Medicine; Visit Provider Internal Medicine
DX: F32.A Depression, unspecified (principal)
CPT/HCPCS: 99442

== ENCOUNTER 2023-06-15 08:46 | Outpatient (AMB) | payer OTHER, SELFPAY ==
[2023-06-15 08:50] VITALS: BP 118/62; PULSE 75; O2SAT 99; BMI 29.9
--- NOTE | 2023-06-15 08:50 | A.OFFPC_ITS ---
Vital Signs 06/15/23 08:50 Height 5 ft 4 in Weight 174 lb BMI 29.9 BP 118/62 Blood Pressure Location Lt brachial Position Sitting Pulse 75 Pulse Source Pulse Oximeter Pulse Oximetry (%) 99 Oxygen Delivery Method Room Air Intake Visit Reasons: physical Workforce Management Consultant Required: No Mechanics Supervisor: Not Required per policy Accompanied by: Self / Same As Patient Allergies No Known Allergies [No Known Allergies*] Allergy (Verified 06/15/23 08:50) Medication List - Last Reconciled 06/15/23 by Daniel Wayne MD blood sugar diagnostic (FreeStyle Lite Strips) As directed four times a day blood-glucose meter (FreeStyle Lite Meter kit) As directed blood-glucose sensor (Dexcom G6 Sensor device) As directed one every 10 days blood-glucose transmitter (Dexcom G6 Transmitter device) DIRECTED change every 3 months citalopram 40 mg PO DAILY gabapentin 300 mg (3 x 100 mg) PO BEDTIME glucagon 3 mg/actuation (Baqsimi) 3 mg intranasal ONCE insulin lispro (Humalog U-100 Insulin) inject up to 75 units per day via insulin pump subcutaneously daily; levothyroxine 100 mcg PO DAILY lisinopril 10 mg PO DAILY multivitamin 1 tab PO DAILY naproxen 500 mg PO BID PRN simvastatin 20 mg PO BEDTIME Tobacco use date assessed: 06/15/23 Fall risk assessment: No Falls in past year Last assessed Fall Risk: 06/15/23 Dental Screening Dental Screen Date: 06/15/23 Did you have a dental visit in the last 12 months?: Yes Did you have a dental problem in the last 6 months where you did not have access to dental care?: No Was dental information given to patient?: Patient has dentist HPI physical HPI Details DM on insulin pump; sees endo in [place]; hypothyr and hyperlip PFSH Medical History (Updated 03/01/23 @ 11:32 by Daniel Wayne MD) Obesity due to excess calories Hx of small bowel obstruction Carpal tunnel syndrome Depression with anxiety Type 1 diabetes mellitus with hyperglycemia Type 1 diabetes mellitus with diabetic neuropathy Hyperlipidemia LDL goal <100 Hypothyroidism, unspecified Surgical History Hx of esophagogastroduodenoscopy Hx laparoscopic cholecystectomy Hx of hysterectomy Hx of colonoscopy Family History Father CVD (cardiovascular disease) CHF (congestive heart failure) Mother Diabetes mellitus Paternal Grandfather Diabetes mellitus Paternal Grandmother Diabetes mellitus Sister Diabetes mellitus Pancreatic cancer Brother Pancreatic cancer Social History Household Members: Significant Other Housing: House Are you a primary health care aide to a significant other at home: No Do you presently have visiting nurse or other home services: No Alcohol intake: current Alcohol intake frequency: holidays/special occasions only Patient Tobacco Use Status: Former Tobacco user Quit Date: 1984 e-Cigarette/Vaping Use: Never Used Second Hand Smoke Exposure: No service: No Current occupational status: employed Current occupation: [employer] Cognitive needs: No Hearing needs: No Vision needs: Yes (latonya) Questionnaire PHQ-9 Over the last 2 weeks, how often have you been bothered by any of the following problems? 1. Little interest or pleasure in doing things: not at all 2. Feeling down, depressed, or hopeless: not at all 3. Trouble falling or staying asleep, or sleeping too much: not at all 4. Feeling tired or having little energy: not at all 5. Poor appetite or overeating: not at all 6. Feeling bad about yourself - or that you are a failure or have let yourself or your family down: not at all 7. Trouble concentrating on things, such as reading the newspaper or watching television: not at all 8. Moving or speaking so slowly that other people could have noticed. Or the opposite - being so fidgety or restless that you have been moving around a lot more than usual: not at all 9. Thoughts that you would be better off or of hurting yourself in some way: not at all Total score: 0 Depression Screening Interpretation: Negative Depression Screening Done: Yes 89222 - PHQ-9 Billing: Yes Source: Developed by Drs. Arden Olivia, Ynes Sprague, Noé Lamas and colleagues, with an educational spencer from [employer]. Thrive Questionnaire Date Thrive assessed: 06/15/23 I am a: Patient What is your living situation today?: I have a steady place to live Within the past 12 months, did the food you bought not last and you didn't have the money to get more?: Never true Within the past 12 months, did you worry whether your food would run out before you got money to buy more?: Never true Do you have trouble paying for medicines?: No Do you have trouble getting transportation to medical appointments?: No Do you have trouble paying your heating and electricity bill?: No Do you have trouble taking care of your child, family member or friend?: No Do you have trouble with day-to-day activities such as bathing, preparing meals, shopping, managing finances, etc.?: No Are you currently unemployed and looking for a job?: No Are you interested in more education?: No Please select the resources that you would like help with: None THRIVE Score: 0 AUDIT C Alcohol Use Questionnaire (AUDIT-C) 1. How often do you have a drink containing alcohol?: 2-3 times a week 2. How many drinks containing alcohol do you have on a typical day when you are drinking?: 1 or 2 3. How often do you have six or more drinks on one occasion?: Never Total Score: 3 Score Reviewed/Action Taken: Yes JN-7 AMB Questionnaire JN-7 Date JN - 7 assessed: 06/15/23 Feeling nervous, anxious, or on edge: 0 = Not at all Not being able to stop or control worryin = Not at all Worrying too much about different things: 0 = Not at all Trouble relaxin = Not at all Being so restless that it is hard to sit still: 0 = Not at all Becoming easily annoyed or irritable: 0 = Not at all Feeling afraid as if something awful might happen: 0 = Not at all Total JN-7 score (0-4 normal; 5-9 mild; 10-14 moderate; 15-21 severe): 0 Source: Developed by Drs. Arden Olivia, Ynes Sprague, Noé Lamas and colleagues, with an educational specner from [employer]. JN-7 Assessment Billing JN-7 Assessment Tool: JN-7 Assessment 57436 Review of Systems Const Denies chills, Denies fatigue, Denies headache(s) and Denies weight loss Eyes Denies change in vision, Denies diplopia and Denies eye pain ENT Denies vertigo, Denies dizziness, Denies headache(s) and Denies nasal discharge Card Denies chest pain, Denies rapid heart rate and Denies dyspnea on exertion Resp Denies chest congestion, Denies cough, Denies pain with cough and Denies dyspnea on exertion GI Denies abdominal pain, Denies hematochezia and Denies change in bowel habits Musc Denies myalgias, Denies arthralgias and Denies joint swelling Skin/Breast Denies lesions and Denies unusual bruising Neuro Denies vertigo, Denies dizziness, Denies headache(s) and Denies focal weakness Endo Denies fatigue Physical exam (Primary Care) Vital Signs: Last Vital Signs Pulse 75 06/15/23 08:50 BP 118/62 06/15/23 08:50 Pulse Ox 99 06/15/23 08:50 Oxygen Delivery Method Room Air 06/15/23 08:50 BMI result Body Mass Index 29.9 Tobacco/Smoking Status: Tobacco use Status Tobacco use date assessed 06/15/23 06/15/23 08:58 Patient Tobacco Use Status Former Tobacco user 06/15/23 08:58 e-Cigarette/Vaping Use Never Used 06/15/23 08:58 PHQ-9: PHQ-9 Score PHQ-9: Total score 0 06/15/23 09:15 Depression Screening Interpretation: Negative Thrive Assessment: Date of Thrive Assessment Date Thrive assessed 06/15/23 06/15/23 08:58 Const General: cooperative, healthy appearing and no acute distress Orientation/consciousness: oriented to person, oriented to place and oriented to time [facility] Head: Yes normal to inspection, Yes normocephalic and Yes atraumatic Mouth: Normal oral and palatal mucosa present and tongue normal Throat: Yes posterior oropharynx normal and Yes uvula midline Eyes General: appearance normal, both eyes and all related structures Neck Neck: Yes normal visual inspection, Yes full ROM and Yes no lymphadenopathy Thyroid: Thyroid normal Carotids: normal carotid upstroke Chest Chest palpation & inspection: normal inspection of the chest Resp Effort & Inspection: normal respiratory effort and able to speak in complete sentences Auscultation: clear to auscultation bilaterally Cardio Jugular venous distension: no JVD Palpation: normal PMI Rate: regular rate Rhythm: regular rhythm Heart sounds: S1 normal heart sound present and S2 normal heart sound present GI Inspection: Yes normal to inspection Palpation (GI): Soft to palpation and No hepatosplenomegaly present Auscultation: normal bowel sounds General: Yes no CVA tenderness Back/Spine/Pelvis Back: no CVA tenderness Skin General skin exam: no rashes or lesions noted Neuro General: oriented to person, oriented to place and oriented to time Extrem General: Yes normal to inspection and Yes full ROM Results AMB Hemoglobin A1c AMB Hemoglobin A1c 7.7 % Last Edit by SADAF Wood on 06/15/23 09:17 Results Reviewed Results Reviewed: Laboratory Last Values Hgb A1c (Clinic) 7.7 % (4.0-6.0) H 06/15/23 09:16 Assessment and Plan Assessment & Plan (1) Physical exam: Code(s): Z00.00 - Encounter for general adult medical examination without abnormal findings Plan: stable; compliant; (2) Type 1 diabetes mellitus with diabetic neuropathy: Code(s): E10.40 - Type 1 diabetes mellitus with diabetic neuropathy, unspecified Plan: stable; f/u with endo (3) Hyperlipidemia LDL goal <100: Code(s): E78.5 - Hyperlipidemia, unspecified Plan: stable (4) Hypothyroidism, unspecified: Code(s): E03.9 - Hypothyroidism, unspecified Qualifiers: Hypothyroidism type: acquired Qualified Code(s): E03.9 - Hypothyroidism, unspecified Plan: stable; same rx Orders: Orders Comprehensive [place]. Panel Fast Today N28.9 - Disorder of kidney and ureter, unspecified Hemoglobin A1c Today R73.9 - Hyperglycemia, unspecified Lipid Panel Today E78.5 - Hyperlipidemia, unspecified MM tomosynthesis screen imp BI Today Z12.31 - Encounter for screening mammogram for malignant neoplasm of breast AMB Hemoglobin A1c Today E10.65 - Type 1 diabetes mellitus with hyperglycemia Complete Blood Count Auto Diff Today D64.9 - Anemia, unspecified Thyroid Stimulating Hormone Today E03.9 - Hypothyroidism, unspecified Coding Level of Care Code Est Pt Prev Care >65y(90258) Diagnoses Physical exam Z00.00 Type 1 diabetes mellitus with diabetic neuropathy E10.40 Hyperlipidemia LDL goal <100 E78.5 Acquired hypothyroidism E03.9 Hypothyroidism type: acquired Additional Codes JN-7 Assessment Billing - JN-7 Assessment Tool: JN-7 Assessment 12026 ([id number])
== END 2023-06-15 09:30 | disposition home or self-care (01) ==
PROVIDERS: Visit Provider Internal Medicine
DX: Z00.00 Encounter for general adult medical examination without abnormal findings (principal); E10.40 Type 1 diabetes mellitus with diabetic neuropathy, unspecified; E78.5 Hyperlipidemia, unspecified; E03.9 Hypothyroidism, unspecified; E10.65 Type 1 diabetes mellitus with hyperglycemia
CPT/HCPCS: 83036; 99397

== ENCOUNTER 2023-07-21 07:57 | Outpatient (REF) | payer OTHER, SELFPAY ==
--- NOTE | ~2023-07-21 | MM_ITS ---
EXAMINATION: MM SCREENING DIGITAL BREAST TOMOSYNTHESIS, BILATERAL CLINICAL INFORMATION: Screening. Asymptomatic. COMPARISON: Mammography: This study is compared with prior exams dating back to 2016. TECHNIQUE: Digital breast tomosynthesis is performed in both the craniocaudal and mediolateral oblique views along with computer-aided detection (CAD). Synthesized 2D images are generated from the tomosynthesis. FINDINGS: The breasts are heterogeneously dense, which may obscure small masses (ACR BI-RADS breast composition Category c). There are no significant masses, abnormal calcifications, or other abnormalities. MM/MM tomosynthesis screening BI IMPRESSION: No mammographic evidence of malignancy. ASSESSMENT: BI-RADS BI-RADS 1 - Negative RECOMMENDATION: Routine annual mammography screening. 1 year F/U This examination should not preclude the clinical evaluation of a suspicious palpable abnormality. This patient's information was entered into a reminder system with a target due date for their next mammogram.
== END 2023-07-21 07:58 | disposition home or self-care (01) ==
LOC: HO.MAMMO 07:57
PROVIDERS: PCP Internal Medicine; Visit Provider Internal Medicine
DX: Z12.31 Encounter for screening mammogram for malignant neoplasm of breast (principal)
CPT/HCPCS: 77063; 77067

== ENCOUNTER → 2023-07-21 08:00 | Outpatient (BNV) | payer OTHER, SELFPAY | PROVIDERS: PCP Internal Medicine; Visit Provider Radiology Diagnostic Radiology | DX: Z12.31 Encounter for screening mammogram for malignant neoplasm of breast (principal) | CPT/HCPCS: 77063; 77067 ==

== ENCOUNTER 2023-08-10 08:05 | Outpatient (AMB) | payer OTHER, SELFPAY ==
--- NOTE | 2023-08-10 08:06 | AM.OFFWIN_ITS ---
Intake Vital Signs 08/10/23 08:09 Weight 181 lb BP 110/62 Blood Pressure Location Lt brachial Position Sitting Pulse 75 Pulse Source Pulse Oximeter Pulse Oximetry (%) 95 Oxygen Delivery Method Room Air Intake Visit Reasons: EP RT knee Pain Intake Note: Patient here for right knee pain that has been very painful which has been going on for awhile but feels like it is more then arthritis. Patient Tobacco Use Status: Former Tobacco user Quit Date: 1984 Allergies No Known Allergies [No Known Allergies*] Allergy (Verified 08/10/23 08:10) Do you need a note to return to daycare/school/sports/work: No HPI HPI Comments History of Present Illness Details 67 y/o female patient who presents to [facility] in clinic with c/o right knee pain for few years now. [facility] Medical History (Updated 03/01/23 @ 11:32 by Daniel Wayne MD) Obesity due to excess calories Hx of small bowel obstruction Carpal tunnel syndrome Depression with anxiety Type 1 diabetes mellitus with hyperglycemia Type 1 diabetes mellitus with diabetic neuropathy Hyperlipidemia LDL goal <100 Hypothyroidism, unspecified Surgical History Hx of esophagogastroduodenoscopy Hx laparoscopic cholecystectomy Hx of hysterectomy Hx of colonoscopy Family History Father CVD (cardiovascular disease) CHF (congestive heart failure) Mother Diabetes mellitus Paternal Grandfather Diabetes mellitus Paternal Grandmother Diabetes mellitus Sister Diabetes mellitus Pancreatic cancer Brother Pancreatic cancer Social History Household Members: Significant Other Housing: House Are you a primary healthcare marketer to a significant other at home: No Do you presently have visiting nurse or other home services: No Alcohol intake: current Alcohol intake frequency: holidays/special occasions only Patient Tobacco Use Status: Former Tobacco user Quit Date: 1984 e-Cigarette/Vaping Use: Never Used Second Hand Smoke Exposure: No service: No Current occupational status: employed Current occupation: [employer] Cognitive needs: No Hearing needs: No Vision needs: Yes (glass) Review of Systems Const All systems reviewed & are unremarkable except as noted in HPI and below Physical Exam Vital Signs: Last Vital Signs Pulse 75 08/10/23 08:09 BP 110/62 08/10/23 08:09 Pulse Ox 95 08/10/23 08:09 Oxygen Delivery Method Room Air 08/10/23 08:09 Const General: comfortable and no acute distress Nutritional Appearance: obese Orientation/consciousness: patient oriented x3 Neuro General: patient oriented x3, gait normal and moves all extremities Extrem Right lower extremity: no joint enlargement and knee Details: normal ROM and knee ligament exam normal; no tenderness, no swelling and no crepitus; no edema Psych Speech and movement: Normal speech and movement present Assessment & Plan Assessment & Plan (1) Right knee pain: Code(s): M25.561 - Pain in right knee Qualifiers: Chronicity: chronic Qualified Code(s): M25.561 - Pain in right knee; G89.29 - Other chronic pain Plan: - IceHot - Acetaminophen or Ibuprofen for pain relief - Continue wearing Knee Brace - Ref to Ortho and PT Plan - IceHot - Acetaminophen or Ibuprofen for pain relief - Continue wearing Knee Brace - Ref to Ortho and PT Orders: Orders XR knee RT 3V Today G89.29 - Other chronic pain, M25.561 - Pain in right knee Referrals Orthopedics Referral G89.29 - Other chronic pain, M25.561 - Pain in right knee Physical Medicine and Rehabilitation Referral G89.29 - Other chronic pain, M25.561 - Pain in right knee Coding Level of Care Code Est Pt Level 3 (56567) Diagnoses Chronic pain of right knee M25.561; G89.29 Chronicity: chronic Time Spent (min) 15
[2023-08-10 08:09] VITALS: BP 110/62; PULSE 75; O2SAT 95
== END 2023-08-10 08:30 | disposition home or self-care (01) ==
PROVIDERS: PCP Internal Medicine; Visit Provider Nurse Practitioner Family
DX: M25.561 Pain in right knee (principal); G89.29 Other chronic pain
CPT/HCPCS: 99213

== ENCOUNTER 2023-08-10 08:23 | Outpatient (REF) | payer OTHER, SELFPAY ==
--- NOTE | ~2023-08-10 | XR_ITS ---
EXAMINATION: XR KNEE, RIGHT CLINICAL INFORMATION: Right knee pain. COMPARISON: 09/02/2020 TECHNIQUE: Three views of the right knee. FINDINGS: Alignment is anatomic. Moderate lateral tibiofemoral cartilage space loss with marginal osteophytes.. Mild patellofemoral cartilage space loss with retropatellar osteophytes. No displaced fracture. No significant joint effusion. Arterial vascular calcifications are present. XR/XR knee RT 3V IMPRESSION: Moderate lateral compartment osteoarthritis of the right knee.
== END 2023-08-10 08:24 | disposition home or self-care (01) ==
LOC: HO.HMGCX 08:23
PROVIDERS: Visit Provider Nurse Practitioner Family
DX: M25.561 Pain in right knee (principal); G89.29 Other chronic pain
CPT/HCPCS: 73562

== ENCOUNTER 2023-11-10 09:26 | Outpatient (AMB) | payer OTHER, SELFPAY ==
--- NOTE | 2023-11-10 09:32 | MHC.PC.OV ---
Vital Signs 11/10/23 09:33 Height 5 ft 4 in Weight 187 lb BMI 32.1 BP 100/68 Blood Pressure Location Lt brachial Position Sitting Pulse 83 Pulse Source Pulse Oximeter Pulse Oximetry (%) 94 Oxygen Delivery Method Room Air Intake Visit Reasons: knee pain Intake Note: Patient is here to follow up on Knee pain. 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 System Engineer: Not Required per policy Accompanied by: Self / Same As Patient Allergies No Known Allergies [No Known Allergies*] Allergy (Verified 11/10/23 09:33) Medication List - Last Reconciled 11/10/23 by Daniel Wayne MD blood sugar diagnostic (FreeStyle Lite Strips) As directed four times a day blood-glucose meter (FreeStyle Lite Meter kit) As directed blood-glucose sensor (Dexcom G6 Sensor device) As directed one every 10 days blood-glucose transmitter (Dexcom G6 Transmitter device) DIRECTED change every 3 months citalopram 40 mg PO DAILY gabapentin 300 mg (3 x 100 mg) PO BEDTIME glucagon 3 mg/actuation (Baqsimi) 3 mg intranasal ONCE insulin lispro (Humalog U-100 Insulin) inject up to 75 units per day via insulin pump subcutaneously daily; levothyroxine 100 mcg PO DAILY lisinopril 10 mg PO DAILY multivitamin 1 tab PO DAILY naproxen 500 mg PO BID PRN simvastatin 20 mg PO BEDTIME Tobacco use date assessed: 11/10/23 Fall risk assessment: 1 Fall in past year Last assessed Fall Risk: 11/10/23 Dental Screening Dental Screen Date: 06/15/23 HPI knee pain HPI Details right knee pain for years; worse recently; XR showed OA PFSH Medical History (Updated 11/10/23 @ 09:49 by Daniel Wayne MD) Obesity due to excess calories Hx of small bowel obstruction Carpal tunnel syndrome Depression with anxiety Type 1 diabetes mellitus with hyperglycemia Type 1 diabetes mellitus with diabetic neuropathy Hyperlipidemia LDL goal <100 Hypothyroidism, unspecified Surgical History (Updated 11/10/23 @ 09:37 by SADAF Kern) History of tooth extraction History of eye surgery Hx of esophagogastroduodenoscopy Hx laparoscopic cholecystectomy Hx of hysterectomy Hx of colonoscopy Family History Father CVD (cardiovascular disease) CHF (congestive heart failure) Mother Diabetes mellitus Paternal Grandfather Diabetes mellitus Paternal Grandmother Diabetes mellitus Sister Diabetes mellitus Pancreatic cancer Brother Pancreatic cancer Social History Household Members: Significant Other Housing: House Are you a primary caregivers homecare to a significant other at home: No Do you presently have visiting nurse or other home services: No Alcohol intake: current Alcohol intake frequency: holidays/special occasions only Patient Tobacco Use Status: Former Tobacco user e-Cigarette/Vaping Use: Never Used Second Hand Smoke Exposure: No service: No Current occupational status: employed Current occupation: [employer] Cognitive needs: No Hearing needs: No Vision needs: Yes (glass) Questionnaire Thrive Questionnaire Date Thrive assessed: 06/15/23 JN-7 AMB Questionnaire JN-7 Date JN - 7 assessed: 06/15/23 Source: Developed by Drs. Arden Olivia, Ynes Sprague, Noé Lamas and colleagues, with an educational specner from [employer]. Review of Systems Const Denies chills, Denies headache(s) and Denies weight loss ENT Denies headache(s) Card Denies chest pain, Denies syncope, Denies irregular heart rhythm and Denies dyspnea Resp Denies chest congestion, Denies cough and Denies dyspnea GI Denies abdominal pain, Denies change in stool character, Denies nausea and Denies vomiting Musc Denies deformity and Denies joint swelling Neuro Denies syncope and Denies headache(s) Physical exam (Primary Care) Vital Signs: Last Vital Signs Pulse 83 11/10/23 09:33 BP 100/68 11/10/23 09:33 Pulse Ox 94 11/10/23 09:33 Oxygen Delivery Method Room Air 11/10/23 09:33 BMI result Body Mass Index 32.1 Tobacco/Smoking Status: Tobacco use Status Tobacco use date assessed 11/10/23 11/10/23 09:39 Patient Tobacco Use Status Former Tobacco user 11/10/23 09:39 e-Cigarette/Vaping Use Never Used 11/10/23 09:39 Thrive Assessment: Date of Thrive Assessment Date Thrive assessed 06/15/23 11/10/23 09:39 Const General: cooperative, comfortable, no acute distress and alert Neck Neck: Yes no lymphadenopathy Thyroid: Thyroid normal Resp Effort & Inspection: normal respiratory effort Auscultation: clear to auscultation bilaterally Percussion: percussion normal Cardio Jugular venous distension: no JVD Palpation: normal PMI Rate: regular rate Rhythm: regular rhythm Heart sounds: S1 normal heart sound present and S2 normal heart sound present GI Inspection: Yes normal to inspection Palpation (GI): No hepatosplenomegaly present Skin General skin exam: no rashes or lesions noted Extrem General: Yes no clubbing, cyanosis or edema Assessment and Plan Assessment & Plan (1) Arthritis of knee: Code(s): M17.10 - Unilateral primary osteoarthritis, unspecified knee Plan: refer ortho Orders: Referrals Orthopedics Referral M17.10 - Unilateral primary osteoarthritis, unspecified knee Coding Level of Care Code Est Pt Level 3 (89413) Diagnoses Arthritis of knee M17.10
[2023-11-10 09:33] VITALS: BP 100/68; PULSE 83; O2SAT 94; BMI 32.1
== END 2023-11-10 09:53 | disposition home or self-care (01) ==
PROVIDERS: PCP Internal Medicine; Visit Provider Internal Medicine
DX: M17.10 Unilateral primary osteoarthritis, unspecified knee (principal)
CPT/HCPCS: 99213

== ENCOUNTER 2023-12-12 08:24 | Outpatient (REF) | payer OTHER, SELFPAY ==
--- NOTE | ~2023-12-12 | XR_ITS ---
EXAMINATION: XR KNEE AP STANDING CLINICAL INFORMATION: Pain. COMPARISON: Prior radiographs, most recently 08/10/2023. TECHNIQUE: AP bilateral standing view of the knees was obtained. FINDINGS: There is moderate asymmetric narrowing of the right lateral joint space compartment, with peripheral osteophyte formation. The right medial joint space is well maintained, with mild peripheral osteophyte formation. The lateral and medial joint space compartments of the left knee are well-maintained. No fracture or dislocation seen. There is no significant varus or valgus configuration. The soft tissue planes are unremarkable. There are bilateral atherosclerotic calcifications. XR/XR knee standing BI IMPRESSION: 1. There is moderate osteoarthritic change of the lateral joint space compartment of the right knee, and mild osteoarthritic changes of the medial joint space compartment of the right knee. 2. The left knee joint space compartments are well-maintained. 3. No significant varus or valgus configuration is seen. Electronically signed by: Masood Rothman MD 01/10/2024 07:48 PM EDT
== END 2023-12-12 08:25 | disposition home or self-care (01) ==
LOC: HO.HOSX 08:24
PROVIDERS: Visit Provider Orthopaedic Surgery
DX: M25.559 Pain in unspecified hip (principal); M17.11 Unilateral primary osteoarthritis, right knee
CPT/HCPCS: 20610; 73565; J0665; J1100

== ENCOUNTER 2023-12-12 09:54 | Outpatient (AMB) | payer OTHER, SELFPAY ==
[2023-12-12 10:03] VITALS: BMI 32.1
--- NOTE | 2023-12-12 10:03 | MHC.OFFVIS ---
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 Right greater than left. Patient reports that she has had ongoing right knee pain for 10+ years now, she had fell in a hole injuring her knee. She has re-injured the right knee on multiple occasions. Her pain has increased over the last year, the knee gives out on her causing her to fall. No history of treatment. She will wear a brace to help with stability. She is very active and typically walks a lot but is unable to do so now because of knee pain that she feels is getting worse. Most of her pain is right lateral knee. [facility] Medical History (Updated 12/12/23 @ 11:27 by Linden Goyal MD) Obesity due to excess calories Hx of small bowel obstruction Carpal tunnel syndrome Depression with anxiety Type 1 diabetes mellitus with hyperglycemia Type 1 diabetes mellitus with diabetic neuropathy Hyperlipidemia LDL goal <100 Hypothyroidism, unspecified Surgical History (Updated 11/10/23 @ 09:37 by SADAF Kern) History of tooth extraction History of eye surgery Hx of esophagogastroduodenoscopy Hx laparoscopic cholecystectomy Hx of hysterectomy Hx of colonoscopy Family History Father CVD (cardiovascular disease) CHF (congestive heart failure) Mother Diabetes mellitus Paternal Grandfather Diabetes mellitus Paternal Grandmother Diabetes mellitus Sister Diabetes mellitus Pancreatic cancer Brother Pancreatic cancer Social History Household Members: Significant Other Housing: House Are you a primary childcare attendant to a significant other at home: No Do you presently have visiting nurse or other home services: No Alcohol intake: current Alcohol intake frequency: holidays/special occasions only Patient Tobacco Use Status: Former Tobacco user e-Cigarette/Vaping Use: Never Used Second Hand Smoke Exposure: No service: No Current occupational status: employed Current occupation: [employer] Cognitive needs: No Hearing needs: No Vision needs: Yes (glass) Physical Exam Vital Signs: BMI result Body Mass Index 32.1 Extrem Other: Valgus right knee with 1+ instability TTP lateral compartment right knee No effusion Good muscle development in thighs Office Procedures Joint Injection/Aspiration Joint Injection/Aspiration Details: Injected 1 mL of Decadron and 3 mL 1% lidocaine and 3 mL of 0.25% Marcaine. Site was prepped using aseptic technique. Patient tolerated the procedure well. Primary Site: right knee Approach Used: anterolateral Coding - Large joint Procedure code (CPT) selection complete Results Reviewed Results Reviewed: I personally reviewed relevant radiographs. Valgus pattern right knee OA with moderate to severe degenerative changes in the right lateral compartment. Assessment & Plan Assessment & Plan (1) Arthritis of right knee: Code(s): M17.11 - Unilateral primary osteoarthritis, right knee Category: Medical Plan: This is an active and healthy 68 yo F with right algus pattern knee OA. I had a long discussion regarding treatment options. I recommend injection, Meloxicam and a lateral unloading brace. I injected her right knee and will send an rx to her pharmacy. I would like to see her back in 3 months. Plan I injected her right knee today, ordered a custom lateral unloading brace and sent meloxicam to her pharmacy Orders: Orders XR knee standing BI Today M25.569 - Pain in unspecified knee Coding Level of Care Code New Pt Level 4 (66291) Diagnoses Arthritis of right knee M17.11 CPT Codes Coding - 16556 Large joint: 79630 - Large joint ([id number])
== END 2023-12-12 10:39 | disposition home or self-care (01) ==
PROVIDERS: PCP Internal Medicine; Visit Provider Orthopaedic Surgery
DX: M17.11 Unilateral primary osteoarthritis, right knee (principal)
CPT/HCPCS: 20610; 99204

== ENCOUNTER 2024-03-15 08:45 | Outpatient (AMB) | payer OTHER, SELFPAY ==
--- NOTE | 2024-03-15 08:47 | A.OFFVIS_ITS ---
Intake Visit Reasons: Inj-Right knee injection-last inj 12/12/23 Intake Note: Amy is a 68 year old female who presents today for follow up of bilateral knee OA. Hx of DM. Right knee was last injected on 12/12/23. She was also prescribed Meloxicam and Lateral unloading brace was ordered. Patient reports that this last injectino was very helpful and she would like to repeat injection today. she is also requesting a refill of Meloxicam. Allergies No Known Allergies [No Known Allergies*] Allergy (Verified 11/10/23 09:33) HPI HPI Inj-Right knee injection-last inj 12/12/23: Details: Amy is a 68 year old female who presents today for follow up of bilateral knee OA. Hx of DM. Right knee was last injected on 12/12/23. She was also prescribed Meloxicam and Lateral unloading brace was ordered. Patient reports that this last injectino was very helpful and she would like to repeat injection today. she is also requesting a refill of Meloxicam. She has stopped wearing unloading brace as she states it hurts her. I had a long conversation with her and it does appear that she has limited but she is pretty hesitant to undergo surgery. Her pain has improved drastically since her last visit. [facility] Medical History Obesity due to excess calories Hx of small bowel obstruction Carpal tunnel syndrome Depression with anxiety Type 1 diabetes mellitus with hyperglycemia Type 1 diabetes mellitus with diabetic neuropathy Hyperlipidemia LDL goal <100 Hypothyroidism, unspecified Surgical History History of tooth extraction History of eye surgery Hx of esophagogastroduodenoscopy Hx laparoscopic cholecystectomy Hx of hysterectomy Hx of colonoscopy Family History Father CVD (cardiovascular disease) CHF (congestive heart failure) Mother Diabetes mellitus Paternal Grandfather Diabetes mellitus Paternal Grandmother Diabetes mellitus Sister Diabetes mellitus Pancreatic cancer Brother Pancreatic cancer Social History Household Members: Significant Other Housing: House Are you a primary care transport nurse to a significant other at home: No Do you presently have visiting nurse or other home services: No Alcohol intake: current Alcohol intake frequency: holidays/special occasions only Patient Tobacco Use Status: Former Tobacco user e-Cigarette/Vaping Use: Never Used Second Hand Smoke Exposure: No service: No Current occupational status: employed Current occupation: [employer] Cognitive needs: No Hearing needs: No Vision needs: Yes (glass) Physical Exam Extrem Other: Valgus right knee with 1+ instability TTP lateral compartment right knee No effusion Good muscle development in thighs Assessment & Plan Assessment & Plan (1) Arthritis of right knee: Code(s): M17.11 - Unilateral primary osteoarthritis, right knee Category: Medical Plan: I had a long discussion with Amy today regarding her knee arthritis. She is hesitant to undergo surgery but when asked if she is limited by her knee and if the quality of her life is diminished in if she has sacrificing daily activities because of knee pain she answered in the affirmative. We deferred on injection today as her pain is currently tolerable. She will return to see me as needed for injections. We did discuss details of surgery and she is aware that if her pain continues to vacillate and she is severely limited that arthroplasty is a good option for her. Plan Chose not to move forward with cortisone injection today, follow up PRN Refill Meloxicam Coding Level of Care Code Est Pt Level 4 (03203) Diagnoses Arthritis of right knee M17.11
== END 2024-03-15 09:12 | disposition home or self-care (01) ==
PROVIDERS: PCP Internal Medicine; Visit Provider Orthopaedic Surgery
DX: M17.11 Unilateral primary osteoarthritis, right knee (principal)
CPT/HCPCS: 99214

== ENCOUNTER 2024-05-18 08:20 | Emergency (ER) | payer OTHER, SELFPAY ==
[2024-05-18 08:22] VITALS: BP 162/71; PULSE 73; RESP 18; TEMP 36.1; O2SAT 100; BMI 27.2
--- NOTE | 2024-05-18 08:29 | ECG_ITS ---
Test Reason : hyperglycemia Blood Pressure : */* mmHG Vent. Rate : 62 BPM Atrial Rate : 62 BPM P-R Int : 176 ms QRS Dur : 86 ms QT Int : 456 ms P-R-T Axes : 58 -14 25 degrees QTcB Int : 462 ms Normal sinus rhythm Septal infarct , age undetermined Abnormal ECG When compared with ECG of 14-Jan-2020 08:33, No significant change was found Referred By: Palmer Hale Electronically Signed By: ABDULLAHI ROWAN MD
[2024-05-18 08:53] LABS: MANUAL DIFF FLAG NO
[2024-05-18 08:55] LABS: Basophils Absolute Auto 0.1 X10*3/uL (0.0-0.2); Basophils Percent Auto 0.7 % (0-2); Eosinophils Absolute Auto 0.5 X10*3/uL (0.0-0.4); Eosinophils Percent Auto 5.7 % (0-4); Hematocrit 36.4 % (37.0-47.0); Hemoglobin 12.3 g/dl (12.0-16.0); Imm Gran Abs Auto 0.05 X10*3/uL (0.00-0.03); Imm Gran Pct Auto 0.6 % (0.0-0.4); Lymphocytes Percent Auto 12.1 % (20-40); Mean Corpuscular HGB Conc 33.8 g/dl (31.0-35.0); Mean Corpuscular Hemoglobin 29.6 pg (27.0-33.0); Mean Corpuscular Volume 87.7 fL (80.0-98.0); Mean Platelet Volume 10.1 fL (9.4-12.3); Monocytes Absolute Auto 0.2 X10*3/uL (0.1-1.2); Monocytes Percent Auto 2.4 % (2-11); Neutrophils Absolute Auto 6.8 x10*3/uL (2.0-8.3); Neutrophils Percent Auto 78.5 % (45-73); Platelet Count 223 X10*3/uL (160-400); Red Blood Count 4.15 X10*6/uL (4.20-5.50); White Blood Count 8.6 X10*3/uL (4.8-10.8)
[2024-05-18 08:57] LABS: Venous Blood Gas Refer to POC result
[2024-05-18 08:57] LABS: VBG Base Excess -2.1 mmol/L; VBG HCO3 21 mmol/L (22-26); VBG pCO2 33 mmHg; VBG pH 7.41 (7.32-7.43); VBG pO2 41 mmHg
[2024-05-18 08:59] LABS: Glucose, Whole Blood > 600 mg/dL (60-115)
[2024-05-18 08:59] LABS: Glucose, Whole Blood 512 mg/dL (60-115)
[2024-05-18 09:10] LABS: Ethanol < 10 mg/dL
[2024-05-18 09:17] LABS: C Reactive Protein 0.18 mg/dL (< or = 0.50); Lipase 69 U/L (8-78); Magnesium 1.6 mg/dL (1.6-2.6); Troponin-I High Sensitivity < 2.7 ng/L (<3.5-17.0)
[2024-05-18 09:19] LABS: Alanine Aminotransferase 24 U/L (0-31); Albumin Level 4.1 g/dL (3.5-5.0); Alkaline Phosphatase 150 U/L (39-117); Anion Gap 14 (12-20); Aspartate Amino Transferase 35 U/L (5-31); Bilirubin Total 0.4 mg/dL (0.0-1.0); Blood Urea Nitrogen 19 mg/dL (9-16); Carbon Dioxide 21 mmol/L (22-29); Chloride 105 mmol/L (96-108); Creatinine Clr Calc Pharmacy 43.7; Estimated Glomerular Filt Rate 44; Glucose Random 613 mg/dL (60-115); Potassium 3.9 mmol/L (3.3-5.1); Sodium 136 mmol/L (135-145)
[2024-05-18 09:20] LABS: Beta-Hydroxybutyrate 1.16 mmol/L (0.02-0.27)
[2024-05-18 09:33] LABS: Influenza A PCR NEGATIVE (Negative); Influenza B PCR NEGATIVE (Negative); Resp Syncy Virus RNA Qual PCR NEGATIVE (Negative); SARS COV2 PCR INHOUSE NEGATIVE (Negative)
--- NOTE | 2024-05-18 10:30 | ED.GENADULT ---
HPI - General Adult General Chief complaint: Recheck/Abnormal Lab/Rx Stated complaint: high blood sugar Time Seen by Provider: 05/18/24 10:30 Source: patient Mode of arrival: ambulatory Limitations: no limitations History of Present Illness ED Provider: Keshia Ruano NP HPI narrative: Patient is a 68-year-old female with past medical history of arthritis, depression, anxiety, hypertension, type 1 diabetes, hyperlipidemia, hypothyroidism who presents emergency department for evaluation. She reports that last night she was having a low blood sugar reading which is not uncommon for her typically she takes glucose tablets for this. But she states that rather she H pieces of candy that she had available to her. She then reports that she subsequently was having about 12 hours of her glucometer reading very high. She is a type 1 diabetic with an insulin pump basal rate and then she manually inputs bolus dosing. However, she states at approximately 07:30 this morning she began experiencing some discomfort to her chest and her bilateral arms which she typically gets at the onset of DKA. She became quite nervous and she decided to manually administer subcutaneous insulin. Reports at 07:30 she administered lispro 10 units subcutaneous, she did not notice a drop in her sugars so at 08:00 she took another 20 units of lispro. She started to feel weak and fatigued and was concerned of DKA which brought her to the emergency department 08:30. She reports that otherwise recently she has been feeling well Related Data Home Medications ?Medication ?Instructions ?Recorded ?Confirmed multivitamin 1 tab PO DAILY 04/02/20 11/10/23 blood-glucose meter (FreeStyle 01/19/22 11/10/23 Lite Meter kit) Previous Rx's ?Medication ?Instructions ?Recorded blood sugar diagnostic (FreeStyle #150 ea 03/31/21 Lite Strips) lisinopril 10 mg tablet 10 mg PO DAILY #90 tabs 09/01/22 glucagon 3 mg/actuation nasal 3 mg intranasal ONCE #2 ea 10/27/22 spray (Baqsimi) blood-glucose sensor (Acquisiocom G6 #3 ea 11/19/22 Sensor device) gabapentin 100 mg capsule 300 mg (3 x 100 mg) PO BEDTIME 12/06/22 #270 caps levothyroxine 100 mcg tablet 100 mcg PO DAILY #90 tabs 02/01/23 citalopram 40 mg tablet 40 mg PO DAILY #90 tabs 03/04/23 blood-glucose transmitter (Dexcom #1 ea 03/07/23 G6 Transmitter device) insulin lispro 100 unit/mL See Rx Instructions subcut DAILY 04/17/23 subcutaneous solution (Humalog #30 mL U-100 Insulin) simvastatin 20 mg tablet 20 mg PO BEDTIME #90 tabs 11/02/23 meloxicam 15 mg tablet 15 mg PO DAILY #30 tabs 03/15/24 Allergies Allergy/AdvReac Type Severity Reaction Status Date / Time No Known Allergies Allergy Verified 05/18/24 08:24 [No Known Allergies*] Review of Systems Review of Systems: Yes all other systems are reviewed and are negative [facility] Past Medical History Attestation statement: The following information was validated with the patient. Source: unable to obtain Medical History Obesity due to excess calories Hx of small bowel obstruction Carpal tunnel syndrome Depression with anxiety Type 1 diabetes mellitus with hyperglycemia Type 1 diabetes mellitus with diabetic neuropathy Hyperlipidemia LDL goal <100 Hypothyroidism, unspecified Surgical History History of tooth extraction History of eye surgery Hx of esophagogastroduodenoscopy Hx laparoscopic cholecystectomy Hx of hysterectomy Hx of colonoscopy Family History Family History Father CVD (cardiovascular disease) CHF (congestive heart failure) Mother Diabetes mellitus Paternal Grandfather Diabetes mellitus Paternal Grandmother Diabetes mellitus Sister Diabetes mellitus Pancreatic cancer Brother Pancreatic cancer Social History Social History Household Members: Significant Other Housing: House Are you a primary child care director to a significant other at home: No Do you presently have visiting nurse or other home services: No Alcohol intake: current Alcohol intake frequency: holidays/special occasions only Alcohol type: wine Patient Tobacco Use Status: Former Tobacco user Smoked in Last 30 Days: No e-Cigarette/Vaping Use: Never Used Second Hand Smoke Exposure: No Use of substances other than those prescribed or required for medical reasons: Yes Substance Use Type: Marijuana Advance Directives: No Advance Directives Information Provided: Yes service: No Current occupational status: employed Current occupation: [employer] Cognitive needs: No Hearing needs: No Vision needs: Yes (glass) Physical Exam ED Vital Signs: Vital Signs - 24 hr 05/18/24 08:22 05/18/24 13:23 Temperature 97.0 F 98.3 F Pulse Rate 73 71 Respiratory Rate 18 19 Blood Pressure 162/71 H 114/59 L Pulse Oximetry 100 97 Oxygen Delivery Method Room Air Room Air BMI result Body Mass Index 27.2 Appearance: Alert.?Oriented to person, place and time. No acute distress.?Normal affect. Eyes: Pupils equal, round and reactive to light.? ENT: Pharynx normal.?? Neck: Normal inspection.? Neck supple.?? CVS: Heart sounds normal. Normal heart rate and rhythm.? Pulses normal.?? Respiratory: No respiratory distress.? Lung sounds clear to auscultation bilaterally?? Abdomen: Soft and non-tender. Normoactive bowel sounds. ? Skin: Skin warm and dry.? Normal skin color.? ? Extremities: No lower extremity edema.? No calf ttp? Neuro: Moves all extremities spontaneously. Sensation intact bilaterally. No focal neuro deficits. Ambulates with normal steady gait. Course Reevaluation(s) Reevaluation #1: On evaluation point of care glucose 126, she was provided with food and drink. She is asymptomatic at this time. Requesting discharge home which I feel is reasonable. Time: 13:17 Medications Administered Discontinued Medications Generic Name Dose Route Start Last Admin Trade Name Freq PRN Reason Stop Dose Admin Lactated Ringer's 1,000 mls @ 999 mls/hr 05/18/24 10:24 05/18/24 12:15 Lr IV 05/18/24 11:24 Infused .Q1H1M ONE Infusion Medical Decision Making Medical Decision Making MDM Narrative: Patient is a 68-year-old female with past medical history of arthritis, depression, anxiety, hypertension, type 1 diabetes, hyperlipidemia, hypothyroidism who presents emergency department for evaluation of hyperglycemia for which she self administered insulin lispro 20 units subcutaneously between 07:30-08:00 this morning as per HPI. She additionally has a glucometer which is set to a basal rate that she believes is around 5 units, she is unable to determine from her pump settings at this time exactly with a basal rate is. She has not given herself any further boluses. She states at the time of my evaluation that her blood sugar is finally trending down words and is in the 300s. She reports that she is feeling much improved but worries that her blood sugar and will now subsequently drop too low as she had given herself additional insulin. During my evaluation she has a point of care glucose of 325 in her glucose monitor is reading as 349. I did discuss with her the onset of action for insulin lispro being the 30 minutes, we did notice a beginning of a downward trend of her glucose levels after about an hour of her arrival. We also reviewed the peak level of response to the insulin being 2-3 hours which would correlate with the time that I met with her. Serum labs were obtained prior to my assumption of care; CBC is without leukocytosis, no anemia or thrombocytopenia. Venous gas without evidence of DKA, no significant electrolyte derangement, no NOY. Supportive care glucose downtrending as aforementioned. High sensitive troponin below detectable limits, with EKG indicating a normal sinus rhythm with ventricular rate of 62, QTC 462, no acute changes when compared to prior, no active chest pain to suggest ACS. At this time I suspect that they are likely should not be much more of a drastic drop in her blood glucose levels, will forego any additional insulin administration at this time and monitor her for the next 1-2 hours to assure so as she is quite anxious about this and reasonably so. Differential Diagnosis Differential Diagnoses: The differential diagnosis associated with the presentation includes (See narrative above) Admission/Observation Consideration of admission/observation: Escalation of care including admission/observation considered (See narrative above) Lab Data MDM Lab Attestation statement: I reviewed the patient's lab results. (See narrative above) 05/18/24 08:47 05/18/24 08:47 Labs: Lab Results 05/18/24 05/18/24 05/18/24 Range/Units 08:38 08:47 08:52 WBC 8.6 (4.8-10.8) X10*3/uL RBC 4.15 L (4.20-5.50) X10*6/uL Hgb 12.3 (12.0-16.0) g/dl Hct 36.4 L (37.0-47.0) % MCV 87.7 (80.0-98.0) fL MCH 29.6 (27.0-33.0) pg MCHC 33.8 (31.0-35.0) g/dl RDW 13.0 (11.0-16.0) % Plt Count 223 (160-400) X10*3/uL MPV 10.1 (9.4-12.3) fL Immature Gran % (Auto) 0.6 H (0.0-0.4) % Neut % (Auto) 78.5 H (45-73) % Lymph % (Auto) 12.1 L (20-40) % [place] % (Auto) 2.4 (2-11) % Eos % (Auto) 5.7 H (0-4) % Baso % (Auto) 0.7 (0-2) % Lymph # (Auto) 1.0 L (1.2-4.9) X10*3/uL [place] # (Auto) 0.2 (0.1-1.2) X10*3/uL Eos # (Auto) 0.5 H (0.0-0.4) X10*3/uL Baso # (Auto) 0.1 (0.0-0.2) X10*3/uL Abs Immat Gran (auto) 0.05 H (0.00-0.03) X10*3/uL Absolute Neuts (auto) 6.8 (2.0-8.3) x10*3/uL Absolute Nucleated RBC 0.000 (0.0-0.012) X10*3/uL Nucleated RBC % (auto) 0.0 (0.0-0.2) /100WBC VBG pH 7.41 (7.32-7.43) VBG pCO2 33 mmHg VBG pO2 41 mmHg VBG HCO3 21 L (22-26) mmol/L VBG O2 Saturation 65.0 % VBG Base Excess -2.1 mmol/L Sodium 136 (135-145) mmol/L Potassium 3.9 (3.3-5.1) mmol/L Chloride 105 (96-108) mmol/L Carbon Dioxide 21 L (22-29) mmol/L Anion Gap 14 (12-20) BUN 19 H (9-16) mg/dL Creatinine 1.23 (0.5-1.4) mg/dL Estim Creat Clear Calc 43.7 Estimated GFR 44 POC Glucose > 600 H* (60-115) mg/dL Random Glucose 613 H* (60-115) mg/dL Calcium 9.0 D (8.4-10.2) mg/dL Magnesium 1.6 (1.6-2.6) mg/dL Total Bilirubin 0.4 (0.0-1.0) mg/dL AST 35 H (5-31) U/L ALT 24 (0-31) U/L Alkaline Phosphatase 150 H (39-117) U/L Troponin I High Sens < 2.7 (<3.5-17.0) ng/L C-Reactive Protein 0.18 (< or = 0.50) mg/dL Total Protein 7.0 (6.5-8.0) g/dL Albumin 4.1 (3.5-5.0) g/dL Lipase 69 (8-78) U/L Beta-Hydroxybutyrate 1.16 H (0.02-0.27) mmol/L Ethyl Alcohol < 10 mg/dL Influenza Type A (PCR) NEGATIVE (Negative) Influenza Type B (PCR) NEGATIVE (Negative) RSV RNA Qual (PCR) NEGATIVE (Negative) SARS-CoV-2 RNA (RT-PCR) NEGATIVE (Negative) 05/18/24 05/18/24 05/18/24 Range/Units 08:55 10:47 13:17 WBC (4.8-10.8) X10*3/uL RBC (4.20-5.50) X10*6/uL Hgb (12.0-16.0) g/dl Hct (37.0-47.0) % MCV (80.0-98.0) fL MCH (27.0-33.0) pg MCHC (31.0-35.0) g/dl RDW (11.0-16.0) % Plt Count (160-400) X10*3/uL MPV (9.4-12.3) fL Immature Gran % (Auto) (0.0-0.4) % Neut % (Auto) (45-73) % Lymph % (Auto) (20-40) % [place] % (Auto) (2-11) % Eos % (Auto) (0-4) % Baso % (Auto) (0-2) % Lymph # (Auto) (1.2-4.9) X10*3/uL [place] # (Auto) (0.1-1.2) X10*3/uL Eos # (Auto) (0.0-0.4) X10*3/uL Baso # (Auto) (0.0-0.2) X10*3/uL Abs Immat Gran (auto) (0.00-0.03) X10*3/uL Absolute Neuts (auto) (2.0-8.3) x10*3/uL Absolute Nucleated RBC (0.0-0.012) X10*3/uL Nucleated RBC % (auto) (0.0-0.2) /100WBC VBG pH (7.32-7.43) VBG pCO2 mmHg VBG pO2 mmHg VBG HCO3 (22-26) mmol/L VBG O2 Saturation % VBG Base Excess mmol/L Sodium (135-145) mmol/L Potassium (3.3-5.1) mmol/L Chloride (96-108) mmol/L Carbon Dioxide (22-29) mmol/L Anion Gap (12-20) BUN (9-16) mg/dL Creatinine (0.5-1.4) mg/dL Estim Creat Clear Calc Estimated GFR POC Glucose 512 H* 325 H 126 H (60-115) mg/dL Random Glucose (60-115) mg/dL Calcium (8.4-10.2) mg/dL Magnesium (1.6-2.6) mg/dL Total Bilirubin (0.0-1.0) mg/dL AST (5-31) U/L ALT (0-31) U/L Alkaline Phosphatase (39-117) U/L Troponin I High Sens (<3.5-17.0) ng/L C-Reactive Protein (< or = 0.50) mg/dL Total Protein (6.5-8.0) g/dL Albumin (3.5-5.0) g/dL Lipase (8-78) U/L Beta-Hydroxybutyrate (0.02-0.27) mmol/L Ethyl Alcohol mg/dL Influenza Type A (PCR) (Negative) Influenza Type B (PCR) (Negative) RSV RNA Qual (PCR) (Negative) SARS-CoV-2 RNA (RT-PCR) (Negative) External Record Review External record reviewed: Outpatient record Chronic Conditions Patient?s care impacted by: Other (See narrative above) Discharge Plan Discharge Clinical Impression: Hyperglycemia Patient Disposition: Home, Self-Care Instructions: Diabetic Hyperglycemia (ED) Additional Instructions: As discussed, there is no evidence of DKA on evaluation today. Your blood sugar responded to the insulin that you administered, you are monitored in the emergency department well past the peak of efficacy for insulin lispro and remained without low blood sugar. As discussed, use your glucose tabs as prescribed when experiencing episodes of hypoglycemia. Follow-up with your plasterer rough as scheduled and discussed if you are having frequent highs and lows perhaps there may be a requirement to change the basal right and/or your bolus dosing. You may return to emergency department any new or worsening symptoms or concerns Prescriptions: No Action (DME) FreeStyle Lite Strips Strip See Rx Instructions .ROUTE .MEDSUPPLY Qty: 150 11RF Rx Instructions: As directed four times a day lisinopril 10 mg tablet 10 mg PO DAILY Qty: 90 8RF (DME) Dexcom G6 Sensor Device See Rx Instructions .ROUTE .MEDSUPPLY Qty: 3 11RF Rx Instructions: As directed one every 10 days gabapentin 100 mg capsule 300 mg PO BEDTIME Qty: 270 2RF levothyroxine 100 mcg tablet 100 mcg PO DAILY Qty: 90 2RF citalopram 40 mg tablet 40 mg PO DAILY Qty: 90 8RF (DME) Dexcom G6 Transmitter Device See Rx Instructions .ROUTE .COMPLEX Qty: 1 0RF Dose Instruction: DIRECTED Rx Instructions: DIRECTED change every 3 months insulin lispro [Humalog U-100 Insulin] 100 unit/mL solution See Rx Instructions subcut DAILY Qty: 30 4RF Rx Instructions: inject up to 75 units per day via insulin pump subcutaneously daily; simvastatin 20 mg tablet 20 mg PO BEDTIME Qty: 90 0RF multivitamin Tablet 1 tab PO DAILY (DME) blood-glucose meter [FreeStyle Lite Meter] Kit See Rx Instructions .Route Rx Instructions: As directed Baqsimi 3 mg/actuation spray,non-aerosol 3 mg intranasal ONCE Qty: 2 4RF meloxicam 15 mg tablet 15 mg PO DAILY Qty: 30 2RF Referrals: Daniel Wayne MD [Primary Care Provider] - Print Language: Maltese
[2024-05-18 10:51] LABS: Glucose, Whole Blood 325 mg/dL (60-115)
[2024-05-18] MEDS: Lactated Ringers 1,000 ML 999 ML IV (10:51)
--- NOTE | 2024-05-18 10:55 | PC.NURSE ---
patient a&ox3, rr equal/non labored, iv inserted, labs previously drawn, poc obtained-325, pt also has a insulin pump/monitor intact which has a basal rate she is unsure of the rate, pt states she also gave herself boluses. IV LR started per order, holding off on the insulin per request of the PA. will continue plan of care
[2024-05-18 13:20] LABS: Glucose, Whole Blood 126 mg/dL (60-115)
[2024-05-18 13:23] VITALS: BP 114/59; PULSE 71; RESP 19; TEMP 36.8; O2SAT 97
[2024-05-18 13:54] VITALS: BP 136/56; PULSE 73; RESP 18; TEMP 36.7; O2SAT 98
== END 2024-05-18 13:55 | disposition home or self-care (01) ==
PROVIDERS: Emergency Provider Emergency Medicine; PCP Internal Medicine
DX: E10.65 Type 1 diabetes mellitus with hyperglycemia (principal); Z03.818 Encounter for observation for suspected exposure to other biological agents ruled out; I10 Essential (primary) hypertension; E78.5 Hyperlipidemia, unspecified; E03.9 Hypothyroidism, unspecified; Z87.891 Personal history of nicotine dependence; Z79.4 Long term (current) use of insulin; Z96.41 Presence of insulin pump (external) (internal); Z79.02 Long term (current) use of antithrombotics/antiplatelets; Z79.899 Other long term (current) drug therapy
CPT/HCPCS: 0241U; 36415; 80053; 80307; 82010; 82803; 82947; 83690; 83735; 84484; 85025; 86140; 93005; 96360; 99284; 99285; J7120

== ENCOUNTER → 2024-05-18 08:29 | Outpatient (BNV) | payer OTHER, SELFPAY | PROVIDERS: Emergency Provider Emergency Medicine; PCP Internal Medicine; Visit Provider Internal Medicine Cardiovascular Disease | DX: R94.31 Abnormal electrocardiogram [ECG] [EKG] (principal) | CPT/HCPCS: 93010 ==

== ENCOUNTER 2024-06-18 08:59 | Outpatient (AMB) | payer OTHER, SELFPAY ==
--- NOTE | 2024-06-18 09:02 | MHC.PC.OV ---
Vital Signs 06/18/24 09:03 Height 5 ft 4 in Weight 182 lb 4 oz BMI 31.3 BP 112/64 Blood Pressure Location Lt brachial Position Sitting Pulse 58 Pulse Source Pulse Oximeter Temp 69.9 F L Temp Source Temporal Artery Scan Pulse Oximetry (%) 97 Oxygen Delivery Method Room Air Intake Visit Reasons: Annual Exam Intake Note: Patient is here today for a physical. Fireman Required: No Graphic Editor: Not Required per policy Accompanied by: Self / Same As Patient Allergies No Known Allergies [No Known Allergies*] Allergy (Verified 06/18/24 09:03) Tobacco use date assessed: 06/18/24 Fall risk assessment: No Falls in past year Last assessed Fall Risk: 06/18/24 Dental Screening Dental Screen Date: 06/18/24 Did you have a dental visit in the last 12 months?: Yes Did you have a dental problem in the last 6 months where you did not have access to dental care?: No Was dental information given to patient?: Patient has dentist HPI Annual Exam HPI Details DM hyperlipidemia and hypothyroidism; compliant; on insulin pump and sees [facility] Medical History Obesity due to excess calories Hx of small bowel obstruction Carpal tunnel syndrome Depression with anxiety Type 1 diabetes mellitus with hyperglycemia Type 1 diabetes mellitus with diabetic neuropathy Hyperlipidemia LDL goal <100 Hypothyroidism, unspecified Surgical History History of tooth extraction History of eye surgery Hx of esophagogastroduodenoscopy Hx laparoscopic cholecystectomy Hx of hysterectomy Hx of colonoscopy Family History Father CVD (cardiovascular disease) CHF (congestive heart failure) Mother Diabetes mellitus Paternal Grandfather Diabetes mellitus Paternal Grandmother Diabetes mellitus Sister Diabetes mellitus Pancreatic cancer Brother Pancreatic cancer Social History (Updated 06/18/24 @ 09:11 by SADAF Kern) Household Members: Significant Other Housing: House Are you a primary resident care technician to a significant other at home: No Do you presently have visiting nurse or other home services: No Alcohol intake: current Alcohol intake frequency: holidays/special occasions only Alcohol type: wine Patient Tobacco Use Status: Former Tobacco user e-Cigarette/Vaping Use: Currently Using Second Hand Smoke Exposure: Yes Substance Use Type: Marijuana service: No Current occupational status: employed Current occupation: [employer] Cognitive needs: No Hearing needs: No Vision needs: Yes (latonya) Questionnaire PHQ-9 Over the last 2 weeks, how often have you been bothered by any of the following problems? 1. Little interest or pleasure in doing things: not at all 2. Feeling down, depressed, or hopeless: not at all 3. Trouble falling or staying asleep, or sleeping too much: not at all 4. Feeling tired or having little energy: several days 5. Poor appetite or overeating: not at all 6. Feeling bad about yourself - or that you are a failure or have let yourself or your family down: not at all 7. Trouble concentrating on things, such as reading the newspaper or watching television: not at all 8. Moving or speaking so slowly that other people could have noticed. Or the opposite - being so fidgety or restless that you have been moving around a lot more than usual: not at all 9. Thoughts that you would be better off or of hurting yourself in some way: not at all Total score: 1 Depression Screening Interpretation: Positive Depression Screening Done: Yes Source: Developed by Drs. Arden Olivia, Ynes Sprague, Noé Lamas and colleagues, with an educational spencer from [employer]. Thrive Questionnaire Date Thrive assessed: 06/18/24 I am a: Patient What is your living situation today?: I have a steady place to live Within the past 12 months, did the food you bought not last and you didn't have the money to get more?: Never true Within the past 12 months, did you worry whether your food would run out before you got money to buy more?: Never true Do you have trouble paying for medicines?: No Do you have trouble getting transportation to medical appointments?: No Do you have trouble paying your heating and electricity bill?: No Do you have trouble taking care of your child, family member or friend?: No Do you have trouble with day-to-day activities such as bathing, preparing meals, shopping, managing finances, etc.?: No Are you currently unemployed and looking for a job?: No Are you interested in more education?: No Please select the resources that you would like help with: None Currently or been in a relationship where the following occur: No concerns reported THRIVE Score: 0 AUDIT C Alcohol Use Questionnaire (AUDIT-C) 1. How often do you have a drink containing alcohol?: 2-4 times a month 2. How many drinks containing alcohol do you have on a typical day when you are drinking?: 1 or 2 3. How often do you have six or more drinks on one occasion?: Never Total Score: 2 JN-7 AMB Questionnaire JN-7 Date JN - 7 assessed: 06/18/24 Feeling nervous, anxious, or on edge: 0 = Not at all Not being able to stop or control worryin = Not at all Worrying too much about different things: 0 = Not at all Trouble relaxin = Not at all Being so restless that it is hard to sit still: 0 = Not at all Becoming easily annoyed or irritable: 0 = Not at all Feeling afraid as if something awful might happen: 0 = Not at all Total JN-7 score (0-4 normal; 5-9 mild; 10-14 moderate; 15-21 severe): 0 Source: Developed by Drs. Arden Olivia, Ynes Sprague, Noé Lamas and colleagues, with an educational spencer from [employer]. Review of Systems Const Denies chills, Denies fatigue, Denies headache(s) and Denies weight loss Eyes Denies change in vision, Denies diplopia and Denies eye pain ENT Denies vertigo, Denies dizziness, Denies headache(s) and Denies nasal discharge Card Denies chest pain, Denies rapid heart rate and Denies dyspnea on exertion Resp Denies chest congestion, Denies cough, Denies pain with cough and Denies dyspnea on exertion GI Denies abdominal pain, Denies hematochezia and Denies change in bowel habits Musc Denies myalgias, Denies arthralgias and Denies joint swelling Skin/Breast Denies lesions and Denies unusual bruising Neuro Denies vertigo, Denies dizziness, Denies headache(s) and Denies focal weakness Endo Denies fatigue Physical exam (Primary Care) Vital Signs: Last Vital Signs Temp 69.9 F L 06/18/24 09:03 Pulse 58 06/18/24 09:03 BP 112/64 06/18/24 09:03 Pulse Ox 97 06/18/24 09:03 Oxygen Delivery Method Room Air 06/18/24 09:03 BMI result Body Mass Index 31.3 Tobacco/Smoking Status: Tobacco use Status Tobacco use date assessed 06/18/24 06/18/24 09:13 Patient Tobacco Use Status Former Tobacco user 06/18/24 09:13 Tobacco use type 06/18/24 09:11 e-Cigarette/Vaping Use Currently Using 06/18/24 09:13 PHQ-9: PHQ-9 Score PHQ-9: Total score 1 06/18/24 09:13 Depression Screening Interpretation: Positive Thrive Assessment: Date of Thrive Assessment Date Thrive assessed 06/18/24 06/18/24 09:13 Currently or been in a relationship where the following occur: No concerns reported Const General: cooperative, healthy appearing and no acute distress Orientation/consciousness: oriented to person, oriented to place and oriented to time HENMT Head: Yes normal to inspection, Yes normocephalic and Yes atraumatic Mouth: Normal oral and palatal mucosa present and tongue normal Throat: Yes posterior oropharynx normal and Yes uvula midline Eyes General: appearance normal, both eyes and all related structures Neck Neck: Yes normal visual inspection, Yes full ROM and Yes no lymphadenopathy Thyroid: Thyroid normal Carotids: normal carotid upstroke Chest Chest palpation & inspection: normal inspection of the chest Resp Effort & Inspection: normal respiratory effort and able to speak in complete sentences Auscultation: clear to auscultation bilaterally Cardio Jugular venous distension: no JVD Palpation: normal PMI Rate: regular rate Rhythm: regular rhythm Heart sounds: S1 normal heart sound present and S2 normal heart sound present GI Inspection: Yes normal to inspection Palpation (GI): Soft to palpation and No hepatosplenomegaly present Auscultation: normal bowel sounds General: Yes no CVA tenderness Back/Spine/Pelvis Back: no CVA tenderness Skin General skin exam: no rashes or lesions noted Neuro General: oriented to person, oriented to place and oriented to time Extrem General: Yes normal to inspection and Yes full ROM Results AMB Hemoglobin A1c AMB Hemoglobin A1c 7.0 % Last Edit by SADAF Kern on 06/18/24 09:17 Results Reviewed Results Reviewed: Laboratory Last Values Hgb A1c (Clinic) 7.0 % (4.0-6.0) H 06/18/24 09:02 Coding Level of Care Code Est Pt Prev Care >65y(91414) Diagnoses Physical exam Z00.00 Type 1 diabetes mellitus with hyperglycemia E10.65 Hyperlipidemia LDL goal <100 E78.5 Acquired hypothyroidism E03.9 Hypothyroidism type: acquired Assessment & Plan Assessment & Plan (1) Physical exam: Code(s): Z00.00 - Encounter for general adult medical examination without abnormal findings Category: Medical Plan: stable; do labs (2) Type 1 diabetes mellitus with hyperglycemia: Code(s): E10.65 - Type 1 diabetes mellitus with hyperglycemia Category: Medical Plan: stable; as per endo (3) Hyperlipidemia LDL goal <100: Code(s): E78.5 - Hyperlipidemia, unspecified Category: Medical Plan: stable; same rx (4) Hypothyroidism, unspecified: Code(s): E03.9 - Hypothyroidism, unspecified Category: Medical Qualifiers: Hypothyroidism type: acquired Qualified Code(s): E03.9 - Hypothyroidism, unspecified Plan: stable; same rx Orders: Orders AMB Hemoglobin A1c 06/18/24 E10.65 - Type 1 diabetes mellitus with hyperglycemia US abdomen complete Today R10.9 - Unspecified abdominal pain
[2024-06-18 09:03] VITALS: BP 112/64; PULSE 58; TEMP 21.1; O2SAT 97; BMI 31.3
== END 2024-06-18 09:38 | disposition home or self-care (01) ==
PROVIDERS: PCP Internal Medicine; Visit Provider Internal Medicine
DX: Z00.00 Encounter for general adult medical examination without abnormal findings (principal); E10.65 Type 1 diabetes mellitus with hyperglycemia; E78.5 Hyperlipidemia, unspecified; E03.9 Hypothyroidism, unspecified

== ENCOUNTER → 2024-06-18 08:59 | Outpatient (BNVA) | payer OTHER, SELFPAY | PROVIDERS: PCP Internal Medicine; Visit Provider Internal Medicine | DX: Z00.00 Encounter for general adult medical examination without abnormal findings (principal); E10.65 Type 1 diabetes mellitus with hyperglycemia; E78.5 Hyperlipidemia, unspecified; E03.9 Hypothyroidism, unspecified | CPT/HCPCS: 83036; 96127 ==

== ENCOUNTER 2024-07-12 08:27 | Outpatient (REF) | payer OTHER, SELFPAY ==
--- NOTE | ~2024-07-12 | US_ITS ---
CLINICAL HISTORY: R10.9 - Unspecified abdominal pain US abdomen complete Comparison: CT/TX/SR - ABD PELVIS WITH CONT [id number] - 12/06/19 09:40 EDT Findings: The visualized pancreas is normal. The aorta and inferior vena cava are normal caliber. The liver is normal in size and echotexture. There is no intrahepatic bile duct dilatation. The common duct is 7.5 mm in diameter. No intraluminal filling defects. Gallbladder is surgically absent. The main portal vein is antegrade. The right kidney is 10.0 cm in length. Right kidney is unremarkable. The left kidney is 9.6 cm in length. There is a 10 x 9 x 11 mm cyst within the lower pole of the left kidney with single internal septation. No internal blood flow. The spleen is normal. No ascites. IMPRESSION: 1. 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 2. Left renal cyst as above. This document has been electronically signed by: Ronald Bishop MD on 07/12/2024 09:53:42
== END 2024-07-12 08:28 | disposition home or self-care (01) ==
LOC: HO.HMGCX 08:27
PROVIDERS: PCP Internal Medicine; Visit Provider Internal Medicine
DX: R10.9 Unspecified abdominal pain (principal)
CPT/HCPCS: 76700

== ENCOUNTER → 2024-07-12 08:29 | Outpatient (BNV) | payer OTHER, SELFPAY | PROVIDERS: PCP Internal Medicine; Visit Provider Radiology Diagnostic Radiology | DX: N28.1 Cyst of kidney, acquired (principal) | CPT/HCPCS: 76700 ==

== ENCOUNTER 2024-08-02 07:53 | Outpatient (REF) | payer OTHER, SELFPAY | END 2024-08-02 07:54 | disposition home or self-care (01) | LOC: HO.MAMMO 07:53 | PROVIDERS: PCP Internal Medicine; Visit Provider Internal Medicine | DX: Z12.31 Encounter for screening mammogram for malignant neoplasm of breast (principal) | CPT/HCPCS: 77063; 77067 ==

== ENCOUNTER → 2024-08-02 08:00 | Outpatient (BNV) | payer OTHER, SELFPAY | PROVIDERS: PCP Internal Medicine; Visit Provider Internal Medicine | DX: Z12.31 Encounter for screening mammogram for malignant neoplasm of breast (principal) | CPT/HCPCS: 77063; 77067 ==

== ENCOUNTER 2024-09-03 08:24 | Outpatient (REF) | payer OTHER, SELFPAY ==
--- NOTE | ~2024-09-03 | MM_ITS ---
EXAMINATION: MM DIAGNOSTIC DIGITAL BREAST TOMOSYNTHESIS, RIGHT Limited right breast ultrasound. CLINICAL INFORMATION: Call back from screening for asymmetry in the superior right breast on MLO view. COMPARISON: Mammography: [facility] on PACS. TECHNIQUE: Digital breast tomosynthesis is performed in both the craniocaudal and mediolateral oblique views along with computer-aided detection (CAD). Synthesized 2D images are generated from the tomosynthesis. FINDINGS: The breasts are heterogeneously dense, which may obscure small masses (ACR BI-RADS breast composition Category c). Asymmetry in the superior right breast persists on additional imaging projections. No suspicious calcifications or other abnormal findings. Targeted color Doppler ultrasound scanning in the upper outer breast and upper central breast demonstrates normal fibroglandular breast tissue. There is no sonographic abnormality. MM/MM tomosynthesis added views R IMPRESSION: Asymmetry on MLO view without sonographic correlate. Recommend 6 month follow-up mammography for further evaluation of stability. ASSESSMENT: BI-RADS BI-RADS 3 - Probably benign finding(s) - 6 month follow-up suggested RECOMMENDATION: 6 Month F/U Results were provided to the patient at time of visit by the technologist. This patient's information was entered into a reminder system with a target due date for their next mammogram. Electronically signed by: Amparo Maher DO 09/03/2024 10:34 AM EDT
== END 2024-09-03 08:25 | disposition home or self-care (01) ==
LOC: HO.MAMMO 08:24
PROVIDERS: PCP Internal Medicine; Visit Provider Internal Medicine
DX: N64.89 Other specified disorders of breast (principal)
CPT/HCPCS: 76642; 77061; 77065

== ENCOUNTER → 2024-09-03 08:30 | Outpatient (BNV) | payer OTHER, SELFPAY | PROVIDERS: PCP Internal Medicine; Visit Provider Internal Medicine | DX: R92.8 Other abnormal and inconclusive findings on diagnostic imaging of breast (principal) | CPT/HCPCS: 76642; 77061; 77065 ==

== ENCOUNTER 2024-10-01 08:03 | Outpatient (AMB) | payer OTHER, SELFPAY ==
[2024-10-01 08:25] VITALS: BP 136/68; PULSE 84; TEMP 36.9; O2SAT 100; BMI 31.8
--- NOTE | 2024-10-01 08:25 | MHC.OFFWIV ---
Intake Vital Signs 10/01/24 08:25 Height 5 ft 4 in Weight 185 lb BMI 31.8 BP 136/68 Blood Pressure Location Lt brachial Position Sitting Pulse 84 Pulse Source Pulse Oximeter Temp 98.5 F Temp Source Oral Pulse Oximetry (%) 100 Oxygen Delivery Method Room Air Intake Visit Reasons: EP-lower back pain Intake Note: Pt presents to the office today for lower back pain that started 4 days ago after vacuuming. Pt denies any urinary symptoms. Patient Tobacco Use Status: Former Tobacco user Allergies No Known Allergies [No Known Allergies*] Allergy (Verified 10/01/24 08:29) HPI HPI Comments History of Present Illness Details History of Present Illness The patient is a 68-year-old female presenting with acute back pain and muscle spasm. She has a history of a herniated disc, but the current presentation is atypical for her. The back pain started approximately two weeks ago and significantly worsened on Tuesday after she vacuumed, which led to severe pain and restricted mobility throughout the weekend. The patient experienced pronounced pain following the observation of swelling on left lower side of her back, which was sensitive to touch. She has pain with movement. She states that the pain is causing her nausea. Bilateral sciatica is present, without any upper body connection sensation while performing routine activities like brushing her hair. She denies urinary incontinence and other systemic symptoms with her musculoskeletal complaints. Management using naproxen and a massaging device with heat provided minimal relief. Pain has been persistent and caused substantial discomfort, impacting her ability to perform activities and exacerbating nausea. She denies incontinence of urine or stool, dysuria, hematuria, or saddle anesthesia. She denies CP or SOB. Physical Exam General: Cooperative, healthy appearing, comfortable, no acute distress and well developed Orientation: Patient oriented x3 Limitations: Bending is problematic Neck: Normal visual inspection and Yes full ROM Respiratory: Normal respiratory effort and able to speak in complete sentences. Clear to auscultation bilaterally Cardiovascular: Regular rate and rhythm. Normal S1 and S2 GI: Normal to inspection. Soft to palpation and nontender Skin: No rashes or lesions noted Neuro: Patient oriented x3. Sensation is intact. Extremities: Decrease ROM due to her pain. Swelling noted to the left lower back. No midline lumbar tenderness noted. No step offs noted. Normal to inspection, no swelling in legs, strength good, SI joint tenderness noted bilaterally. Negative SLR noted Ambulates slowly with steady gait. Patient was informed and verbally consented to the use of an ambient scribe for clinic note documentation during this visit. [facility] Medical History Obesity due to excess calories Hx of small bowel obstruction Carpal tunnel syndrome Depression with anxiety Type 1 diabetes mellitus with hyperglycemia Type 1 diabetes mellitus with diabetic neuropathy Hyperlipidemia LDL goal <100 Hypothyroidism, unspecified Surgical History History of tooth extraction History of eye surgery Hx of esophagogastroduodenoscopy Hx laparoscopic cholecystectomy Hx of hysterectomy Hx of colonoscopy Family History Father CVD (cardiovascular disease) CHF (congestive heart failure) Mother Diabetes mellitus Paternal Grandfather Diabetes mellitus Paternal Grandmother Diabetes mellitus Sister Diabetes mellitus Pancreatic cancer Brother Pancreatic cancer Social History Household Members: Significant Other Housing: House Are you a primary home care physical therapist to a significant other at home: No Do you presently have visiting nurse or other home services: No Alcohol intake: current Alcohol intake frequency: holidays/special occasions only Alcohol type: wine Patient Tobacco Use Status: Former Tobacco user e-Cigarette/Vaping Use: Currently Using Second Hand Smoke Exposure: Yes Substance Use Type: Marijuana service: No Current occupational status: employed Current occupation: [employer] Cognitive needs: No Hearing needs: No Vision needs: Yes (glass) Review of Systems Const All systems reviewed & are unremarkable except as noted in HPI and below Physical Exam Vital Signs: Last Vital Signs Temp 98.5 F 10/01/24 08:25 Pulse 84 10/01/24 08:25 BP 136/68 10/01/24 08:25 Pulse Ox 100 10/01/24 08:25 Oxygen Delivery Method Room Air 10/01/24 08:25 BMI result Body Mass Index 31.8 Assessment & Plan Assessment & Plan (1) Back pain: Code(s): M54.9 - Dorsalgia, unspecified Plan Most likely strain vs sciatica vs herniated disc, less likely cauda equina Plan Acute muscle spasm is suspected, likely related to recent physical activity on an existing herniated disc background. Imaging is postponed; the focus is on reducing inflammation and spasm with muscle relaxants and prednisone, in conjunction with continued naproxen. Emphasis on rest, heat or ice application, and remote work option to facilitate recovery. Future steps include considering imaging and/or ortho referral if symptoms do not improve. Immediate follow-up is advised if symptoms worsen or persist despite treatment. Medications: New prednisone 40 mg (2 x 20 mg) PO daily 10 tabs 0RF 5 days cyclobenzaprine 10 mg PO TID 30 tabs 0RF 10 days Coding Level of Care Code Est Pt Level 4 (00161) Diagnoses Back pain M54.9
== END 2024-10-01 09:19 | disposition home or self-care (01) ==
PROVIDERS: Visit Provider Physician Assistant Medical
DX: M54.9 Dorsalgia, unspecified (principal)

== ENCOUNTER → 2024-10-01 08:03 | Outpatient (BNVA) | payer OTHER, SELFPAY | PROVIDERS: Visit Provider Physician Assistant Medical | DX: Z13.89 Encounter for screening for other disorder (principal) ==

== ENCOUNTER 2024-12-16 07:57 | Emergency (ER) | payer OTHER, SELFPAY ==
--- NOTE | ~2024-12-16 | CT_ITS ---
CLINICAL HISTORY: abd pain CT abdomen and pelvis with contrast Comparison: CT/MA/SR - ABD PELVIS WITH CONT [id number] - 12/06/19 09:40 EDT Findings: There is a small sliding hiatal hernia. Cholecystectomy clips are present. Mild central hepatic and extrahepatic ductal dilatation is seen with the CBD measuring 11 mm, which is unchanged and can be seen in post cholecystectomy patients. Subcentimeter hypodensities in bilateral kidneys are too small to characterize. The pancreas, spleen, and bilateral adrenal glands appear within normal limits. There is no evidence of bowel obstruction. The large bowel is nondistended with accentuation of the wall. The appendix appears normal. There is no pneumoperitoneum or ascites. The urinary bladder appears normal. There is no adenopathy. Moderate to severe degenerative changes are seen in the lower lumbar spine. No acute osseous abnormality is identified. No aggressive lytic or blastic lesion is seen. IMPRESSION: No acute findings. This document has been electronically signed by: Juan Medina on 12/16/2024 11:45:36
--- NOTE | 2024-12-16 07:58 | ED_ITS ---
HPI - General Adult General Chief complaint: Nausea/Vomiting/Diarrhea Stated complaint: NAUSEA VOMITING DIARRHEA Time Seen by Provider: 12/16/24 07:58 Source: patient and EMS Mode of arrival: EMS Limitations: no limitations History of Present Illness ED Provider: Lea Echavarria PA-C HPI narrative: 69-year-old assigned female at with past medical history of arthritis, depression, anxiety, hypertension, type 1 diabetes, hyperlipidemia, and hypothyroidism who presents from home with nausea, vomiting, and diarrhea for the past 5 hours. She also has diffuse abdominal pain, complaining most in her lower abdomen, dizziness, and is feeling hot and cold. She reports her pain as 5/10 and non radiating. She reports 6 episodes of vomiting and fecal incontinence and denies seeing blood. The patient is worried that she is in DKA as she has had it before and she feels similar. Patient was at at a winery and had about a bottle of wine with little to eat on 12/15/2024. She denies chest pain and shortness of breath. Onset (ago): month(s) Location: abdomen Radiation: non-radiation Associated symptoms: nausea/vomiting Treatments prior to arrival: other (4 mg zofran and 200 cc NS from ems) Related Data Home Medications ?Medication ?Instructions ?Recorded ?Confirmed multivitamin 1 tab PO DAILY 04/02/2010/30 blood-glucose meter (FreeStyle 01/19/22 11/10/23 Lite Meter kit) gabapentin 100 mg capsule 100 mg PO BEDTIME 06/18/24 gabapentin 300 mg capsule 300 mg PO BEDTIME 06/18/24 Previous Rx's ?Medication ?Instructions ?Recorded blood sugar diagnostic (FreeStyle #150 ea 03/31/21 Lite Strips) lisinopril 10 mg tablet 10 mg PO DAILY #90 tabs 07/22 glucagon 3 mg/actuation nasal 3 mg intranasal ONCE #2 ea 10/27/22 spray (Baqsimi) blood-glucose sensor (Dexcom G6 #3 ea 11/19/22 Sensor device) levothyroxine 100 mcg tablet 100 mcg PO DAILY #90 tabs 02/01/23 blood-glucose transmitter (Dexcom #1 ea 03/07/23 G6 Transmitter device) insulin lispro 100 unit/mL See Rx Instructions subcut DAILY 04/17/23 subcutaneous solution (Humalog #30 mL U-100 Insulin) simvastatin 20 mg tablet 20 mg PO BEDTIME #90 tabs cyclobenzaprine 10 mg tablet 10 mg PO TID 10 days #30 tabs 10/01/24 prednisone 20 mg tablet 40 mg (2 x 20 mg) PO daily 5 days 10/01/24 #10 tabs meloxicam 15 mg tablet 15 mg PO DAILY #30 tabs 12/24 citalopram 40 mg tablet 40 mg PO DAILY #90 tabs 11/01 Allergies Allergy/AdvReac Type Severity Reaction Status Date / Time No Known Allergies (No Known Allergy Verified 12/16/24 08:14 Allergies*) Review of Systems 2 Constitutional: Constitutional: Reports as per HPI, Reports chills, Denies fever(s) and Denies night sweats Eyes: Eyes: Reports no additional eye complaints ENT: Reports dizziness Cardiovascular: Cardiovascular: Reports no additional cardiovascular complaints, Denies chest pain, Denies lightheadedness, Denies Loss of Consciousness and Denies dyspnea Respiratory: Respiratory: Reports no additional respiratory complaints and Denies dyspnea Gastrointestinal: Gastrointestinal: Reports as per HPI, Reports abdominal pain, Reports change in stool character, Reports diarrhea, Reports loose stools, Reports nausea and Reports vomiting Genitourinary: Genitourinary: Reports no additional female genitourinary complaints and Denies dysuria Musculoskeletal: Musculoskeletal: Reports no additional musculoskeletal complaints, Denies numbness and Denies tingling Neurologic: Reports dizziness, Denies numbness and Denies tingling Psychiatric: Psychiatric: Reports no additional psychiatric complaints Endocrine: Endocrine: Reports no additional endocrine complaints Hematologic/Lymphatic: Hematologic/Lymphatic: Reports no additional hematologic/lymphatic complaints Allergic/Immunologic: Allergic/Immunologic: Reports no additional allergic/immunologic complaints [facility] Past Medical History Attestation statement: The following information was validated with the patient. Source: old records reviewed and nursing notes reviewed Medical History Obesity due to excess calories Hx of small bowel obstruction Carpal tunnel syndrome Depression with anxiety Type 1 diabetes mellitus with hyperglycemia Type 1 diabetes mellitus with diabetic neuropathy Hyperlipidemia LDL goal <100 Hypothyroidism, unspecified Surgical History History of tooth extraction History of eye surgery Hx of esophagogastroduodenoscopy Hx laparoscopic cholecystectomy Hx of hysterectomy Hx of colonoscopy Family History Family History Father CVD (cardiovascular disease) CHF (congestive heart failure) Mother Diabetes mellitus Paternal Grandfather Diabetes mellitus Paternal Grandmother Diabetes mellitus Sister Diabetes mellitus Pancreatic cancer Brother Pancreatic cancer Social History Social History Household Members: Significant Other Housing: House Are you a primary cardiac care nurse to a significant other at home: No Do you presently have visiting nurse or other home services: No Alcohol intake: current Alcohol intake frequency: holidays/special occasions only Alcohol type: wine Patient Tobacco Use Status: Former Tobacco user Smoked in Last 30 Days: No e-Cigarette/Vaping Use: Currently Using Second Hand Smoke Exposure: Yes Use of substances other than those prescribed or required for medical reasons: Yes Substance Use Type: Marijuana Advance Directives: No Advance Directives Information Provided: No Do you have a plan to hurt others: No Plan service: No Current occupational status: employed Current occupation: [employer] Cognitive needs: No Hearing needs: No Vision needs: Yes (glass) Physical Exam ED Vital Signs: Vital Signs - 24 hr 12/16/24 08:12 12/16/24 09:10 12/16/24 10:21 Temperature 98.5 F 98.2 F Pulse Rate 78 79 Respiratory Rate 18 18 16 Blood Pressure 179/55 H Pulse Oximetry 98 98 Oxygen Delivery Method Room Air Room Air 12/16/24 12:28 12/16/24 15:01 Temperature Pulse Rate 68 75 Respiratory Rate 14 14 Blood Pressure 114/58 L 114/56 L Pulse Oximetry 97 Oxygen Delivery Method Room Air Room Air BMI result Body Mass Index 31.8 Const General: cooperative, no acute distress, alert and awake Nutritional Appearance: well nourished Orientation/consciousness: patient oriented x3 HENMT Head: Yes normal to inspection and Yes atraumatic Ears: hearing grossly normal bilaterally and external ears normal General nose exam: Normal external nose present, no nasal discharge noted and no epistaxis Face and sinus: Yes normal facial exam, No abrasion and No laceration Mouth: Normal oral and palatal mucosa present, no drooling and no muffled voice Eyes General: appearance normal, both eyes and all related structures Periorbital: periorbital findings normal Eyelids: Yes eyelids normal Conjunctivae: conjunctivae normal Pupils: Equal, round and reactive pupils present EOM: EOMs intact bilaterally Neck Neck: Yes normal visual inspection and Yes full ROM Resp Effort & Inspection: normal respiratory effort and able to speak in complete sentences Auscultation: clear to auscultation bilaterally Cardio Rate: regular rate Rhythm: regular rhythm GI Inspection: Yes normal to inspection Palpation (GI): Soft to palpation, not firm, no guarding and not rigid Neuro General: patient oriented x3, moves all extremities and CN's II-XI intact bilaterally Cranial nerves: Yes Equal, round and reactive pupils present Cognition (Neuro): normal cognition Extrem General: Yes normal to inspection, Yes full ROM and Yes capillary refill normal Psych Appearance: grossly normal Mental Status: mental status grossly normal Affect: normal affect Attitude: cooperative Thought process: Normal thought process present Thought content: Normal thought content present Insight: Good insight present (Psych) Medications Administered Discontinued Medications Generic Name Dose Route Start Last Admin Trade Name Freq PRN Reason Stop Dose Admin Lactated Ringer's 1,000 mls @ 999 mls/hr 12/16/24 08:30 12/16/24 10:20 Lr IV 12/16/24 09:30 Infused .Q1H1M YAN Infusion Lactated Ringer's 1,000 mls @ 999 mls/hr 12/16/24 09:45 12/16/24 12:21 Lr IV 12/16/24 10:45 Infused .Q1H1M YAN Infusion Magnesium Sulfate/Dextrose 1 gm in 100 mls @ 100 mls/hr 12/16/24 13:26 12/16/24 13:43 Magnesium Sulfate/D5w IV 12/16/24 14:25 100 mls/hr ONCE ONE Administration Iohexol 100 ml 12/16/24 10:11 12/16/24 10:11 Iohexol 350 Mg/Ml 100 Ml Infus..Btl IV 12/16/24 10:12 85 ml ONCE ONE Administration Morphine Sulfate 4 mg 12/16/24 08:36 12/16/24 09:10 Morphine Sulfate 4 Mg/Ml Cartridge IVPUSH 12/16/24 08:37 4 mg ONCE ONE Administration Protocol Medical Decision Making Lab Data 12/16/24 08:44 12/16/24 12:06 Labs: Lab Results 08/17/25 08/17/25 08/17/25 Range/Units 08:43 08:44 09:23 WBC 11.7 H (4.8-10.8) X10*3/uL RBC 4.10 L (4.20-5.50) X10*6/uL Hgb 12.2 (12.0-16.0) g/dl Hct 35.0 L (37.0-47.0) % MCV 85.4 (80.0-98.0) fL MCH 29.8 (27.0-33.0) pg MCHC 34.9 (31.0-35.0) g/dl RDW 13.0 (11.0-16.0) % Plt Count 266 (160-400) X10*3/uL MPV 10.5 (9.4-12.3) fL Immature Gran % (Auto) 0.6 H (0.0-0.4) % Neut % (Auto) 86.2 H (45-73) % Lymph % (Auto) 9.2 L (20-40) % Harlan % (Auto) 3.2 (2-11) % Eos % (Auto) 0.4 (0-4) % Baso % (Auto) 0.4 (0-2) % Lymph # (Auto) 1.1 L (1.2-4.9) X10*3/uL Harlan # (Auto) 0.4 (0.1-1.2) X10*3/uL Eos # (Auto) 0.1 (0.0-0.4) X10*3/uL Baso # (Auto) 0.1 (0.0-0.2) X10*3/uL Abs Immat Gran (auto) 0.07 H (0.00-0.03) X10*3/uL Absolute Neuts (auto) 10.1 H (2.0-8.3) x10*3/uL Absolute Nucleated RBC 0.000 (0.0-0.012) X10*3/uL Nucleated RBC % (auto) 0.0 (0.0-0.2) /100WBC PT 11.4 (10.9-12.4) SEC INR 1.0 (0.9-1.1) VBG pH 7.53 H (7.32-7.43) VBG pCO2 21 mmHg VBG pO2 58 mmHg VBG HCO3 18 L (22-26) mmol/L VBG O2 Saturation 89.0 % VBG Base Excess -2.5 mmol/L Sodium 144 (135-145) mmol/L Potassium 3.9 (3.3-5.1) mmol/L Chloride 108 (96-108) mmol/L Carbon Dioxide 19 L (22-29) mmol/L Anion Gap 22 H (12-20) BUN 17 H (9-16) mg/dL Creatinine 0.81 (0.5-1.4) mg/dL Estim Creat Clear Calc 70.6 Estimated GFR > 60 Random Glucose 270 H (60-115) mg/dL Calcium 9.6 D (8.4-10.2) mg/dL Magnesium 1.6 (1.6-2.6) mg/dL Total Bilirubin 0.5 (0.0-1.0) mg/dL AST 55 H (5-31) U/L ALT 35 H (0-31) U/L Alkaline Phosphatase 112 (39-117) U/L Troponin I High Sens < 2.7 (<3.5-17.0) ng/L Total Protein 6.7 (6.5-8.0) g/dL Albumin 4.2 (3.5-5.0) g/dL Lipase 29 (8-78) U/L Beta-Hydroxybutyrate 0.61 H (0.02-0.27) mmol/L TSH 4.08 H (0.32-4.0) uIU/mL Free T4 1.31 (0.71-1.85) ng/dL Urine Color Urine Appearance Urine pH (5.0-9.0) Ur Specific [place] (1.005-1.025) Urine Protein (Neg-Trace) mg/dL Urine Glucose (UA) (Negative) mg/dL Urine Ketones (Negative) mg/dL Urine Blood (Negative) Urine Nitrite (Negative) Ur Leukocyte Esterase (Negative) Urine RBC (0-2) /HPF Urine WBC (0-5) /HPF Ur Squamous Epith Cells (0-2) /HPF Urine Bacteria (None Seen) Hyaline Casts (0-2) /LPF Influenza Type A (PCR) NEGATIVE (Negative) Influenza Type B (PCR) NEGATIVE (Negative) RSV RNA Qual (PCR) NEGATIVE (Negative) SARS-CoV-2 RNA (RT-PCR) NEGATIVE (Negative) 12/16/24 12/16/24 Range/Units 10:32 12:06 WBC (4.8-10.8) X10*3/uL RBC (4.20-5.50) X10*6/uL Hgb (12.0-16.0) g/dl Hct (37.0-47.0) % MCV (80.0-98.0) fL MCH (27.0-33.0) pg MCHC (31.0-35.0) g/dl RDW (11.0-16.0) % Plt Count (160-400) X10*3/uL MPV (9.4-12.3) fL Immature Gran % (Auto) (0.0-0.4) % Neut % (Auto) (45-73) % Lymph % (Auto) (20-40) % Harlan % (Auto) (2-11) % Eos % (Auto) (0-4) % Baso % (Auto) (0-2) % Lymph # (Auto) (1.2-4.9) X10*3/uL Harlan # (Auto) (0.1-1.2) X10*3/uL Eos # (Auto) (0.0-0.4) X10*3/uL Baso # (Auto) (0.0-0.2) X10*3/uL Abs Immat Gran (auto) (0.00-0.03) X10*3/uL Absolute Neuts (auto) (2.0-8.3) x10*3/uL Absolute Nucleated RBC (0.0-0.012) X10*3/uL Nucleated RBC % (auto) (0.0-0.2) /100WBC PT (10.9-12.4) SEC INR (0.9-1.1) VBG pH (7.32-7.43) VBG pCO2 mmHg VBG pO2 mmHg VBG HCO3 (22-26) mmol/L VBG O2 Saturation % VBG Base Excess mmol/L Sodium 144 (135-145) mmol/L Potassium 4.6 (3.3-5.1) mmol/L Chloride 109 H (96-108) mmol/L Carbon Dioxide 25 (22-29) mmol/L Anion Gap 15 (12-20) BUN 15 (9-16) mg/dL Creatinine 0.70 (0.5-1.4) mg/dL Estim Creat Clear Calc 81.7 Estimated GFR > 60 Random Glucose 160 H (60-115) mg/dL Calcium 9.0 D (8.4-10.2) mg/dL Magnesium (1.6-2.6) mg/dL Total Bilirubin 0.6 (0.0-1.0) mg/dL AST 77 H (5-31) U/L ALT 48 H (0-31) U/L Alkaline Phosphatase 102 (39-117) U/L Troponin I High Sens (<3.5-17.0) ng/L Total Protein 6.3 L (6.5-8.0) g/dL Albumin 4.0 (3.5-5.0) g/dL Lipase (8-78) U/L Beta-Hydroxybutyrate (0.02-0.27) mmol/L TSH (0.32-4.0) uIU/mL Free T4 (0.71-1.85) ng/dL Urine Color Yellow Urine Appearance Clear Urine pH 8.5 (5.0-9.0) Ur Specific [place] 1.020 (1.005-1.025) Urine Protein Negative (Neg-Trace) mg/dL Urine Glucose (UA) >=1000 H (Negative) mg/dL Urine Ketones 80 (Negative) mg/dL Urine Blood Negative (Negative) Urine Nitrite Negative (Negative) Ur Leukocyte Esterase Negative (Negative) Urine RBC 0-2 (0-2) /HPF Urine WBC 0-5 (0-5) /HPF Ur Squamous Epith Cells 0-2 (0-2) /HPF Urine Bacteria None Seen (None Seen) Hyaline Casts 0-2 (0-2) /LPF Influenza Type A (PCR) (Negative) Influenza Type B (PCR) (Negative) RSV RNA Qual (PCR) (Negative) SARS-CoV-2 RNA (RT-PCR) (Negative) Discharge Plan Discharge Clinical Impression: Nausea & vomiting, Diarrhea, Gastroenteritis Patient Disposition: Home, Self-Care Instructions: Gastroenteritis (DC), Acute Nausea and Vomiting (DC), Acute Diarrhea (ED) Additional Instructions: Your work up today is reassuring there is no EMERGENT cause for your symptoms. IF you are prescribed home medications and/or you are taking over the counter medications at home - it is very important you continue to do so as prescribed / directed unless told otherwise. Follow up with your primary care provider. Return to the emergency department immediately if your symptoms worsen or if you develop any numbness, tingling, dizziness, shortness of breath, difficulty breathing, chest pain, blurry vision, loss of vision, nausea, vomiting, abdominal pain, fever, chills, back pain, or any other complaints. Please see the information below about our Patient Portal. If you are not yet enrolled in the [facility] Patient Portal, you will receive an enrollment email invitation following your visit to any [facility] setting. You may also self-enroll in the Patient Portal by visiting our website: [email or web address] The following information is required to access the Patient Portal: - Your [facility] Medical Record Number - Your personal home email address (must match what is in your electronic medical record, Registration staff can assist with this) - Name - Date of Capabilities of the Patient Portal: - Message some providers - View upcoming appointments - Access your health summary, medical history, and visit history - View current conditions and allergies - View procedure and lab results - View your medications, including guidelines, side effects, and precautions - Complete pre-appointment questionnaires requested by your provider - Ready summary reports of your office visits and procedures To access the Patient Portal Mobile Rm, follow these directions: - Search [employer] in the Rm Store or [employer] iFormulary Store - Download the Rm - Search for [facility] - Enter your login/password Prescriptions: No Action (DME) FreeStyle Lite Strips Strip See Rx Instructions .ROUTE .MEDSUPPLY Qty: 150 11RF Rx Instructions: As directed four times a day lisinopril 10 mg tablet 10 mg PO DAILY Qty: 90 8RF (DME) Dexcom G6 Sensor Device See Rx Instructions .ROUTE .MEDSUPPLY Qty: 3 11RF Rx Instructions: As directed one every 10 days levothyroxine 100 mcg tablet 100 mcg PO DAILY Qty: 90 2RF (DME) Dexcom G6 Transmitter Device See Rx Instructions .ROUTE .COMPLEX Qty: 1 0RF Dose Instruction: DIRECTED Rx Instructions: DIRECTED change every 3 months insulin lispro [Humalog U-100 Insulin] 100 unit/mL solution See Rx Instructions subcut DAILY Qty: 30 4RF Rx Instructions: inject up to 75 units per day via insulin pump subcutaneously daily; simvastatin 20 mg tablet 20 mg PO BEDTIME Qty: 90 0RF meloxicam 15 mg tablet 15 mg PO DAILY Qty: 30 2RF citalopram 40 mg tablet 40 mg PO DAILY Qty: 90 0RF multivitamin Tablet 1 tab PO DAILY (DME) blood-glucose meter [FreeStyle Lite Meter] Kit See Rx Instructions .Route Rx Instructions: As directed Baqsimi 3 mg/actuation spray,non-aerosol 3 mg intranasal ONCE Qty: 2 4RF gabapentin 300 mg capsule 300 mg PO BEDTIME gabapentin 100 mg capsule 100 mg PO BEDTIME prednisone 20 mg tablet 40 mg PO daily 5 Days Qty: 10 0RF cyclobenzaprine 10 mg tablet 10 mg PO TID 10 Days Qty: 30 0RF Referrals: Yasmin Ewing PA-C [Primary Care Provider, Internal Medicine] Print Language: Guinean
[2024-12-16 08:12] VITALS: BP 132/68; PULSE 74; PULSE 78; RESP 18; TEMP 36.9; O2SAT 98; BMI 31.8
--- NOTE | 2024-12-16 08:21 | ECG_ITS ---
Test Reason : emisis Blood Pressure : */* mmHG Vent. Rate : 70 BPM Atrial Rate : 70 BPM P-R Int : 170 ms QRS Dur : 80 ms QT Int : 500 ms P-R-T Axes : 67 -18 28 degrees QTcB Int : 540 ms Normal sinus rhythm Septal infarct (cited on or before 18-May-2024) Prolonged QT Abnormal ECG When compared with ECG of 18-May-2024 08:34, QT has lengthened Referred By: Lea Echavarria Electronically Signed By: Hilton Sharp
[2024-12-16 09:05] LABS: Hematocrit 35.0 % (37.0-47.0); Hemoglobin 12.2 g/dl (12.0-16.0); Imm Gran Abs Auto 0.07 X10*3/uL (0.00-0.03); Imm Gran Pct Auto 0.6 % (0.0-0.4); Lymphocytes Absolute Auto 1.1 X10*3/uL (1.2-4.9); MANUAL DIFF FLAG NO; Mean Corpuscular HGB Conc 34.9 g/dl (31.0-35.0); Mean Corpuscular Hemoglobin 29.8 pg (27.0-33.0); Mean Corpuscular Volume 85.4 fL (80.0-98.0); NRBC Abs Auto 0.000 X10*3/uL (0.0-0.012); NRBC Pct Auto 0.0 /100WBC (0.0-0.2); Platelet Count 266 X10*3/uL (160-400); Red Blood Count 4.10 X10*6/uL (4.20-5.50); White Blood Count 11.7 X10*3/uL (4.8-10.8)
[2024-12-16 09:10] VITALS: RESP 18
[2024-12-16 09:10] LABS: INTERNATIONAL NORM RATIO 1.0 (0.9-1.1); Prothrombin Time 11.4 SEC (10.9-12.4)
[2024-12-16] MEDS: Lactated Ringers 1,000 ML 999 ML IV ×2 (09:11→10:21)
[2024-12-16 09:27] LABS: VBG HCO3 18 mmol/L (22-26); VBG O2 % Saturation 89.0 %
[2024-12-16 09:27] LABS: Venous Blood Gas Refer to POC result
[2024-12-16 09:29] LABS: Troponin-I High Sensitivity < 2.7 ng/L (<3.5-17.0)
[2024-12-16 09:39] LABS: Alanine Aminotransferase 35 U/L (0-31); Albumin Level 4.2 g/dL (3.5-5.0); Alkaline Phosphatase 112 U/L (39-117); Anion Gap 22 (12-20); Aspartate Amino Transferase 55 U/L (5-31); Blood Urea Nitrogen 17 mg/dL (9-16); Calcium 9.6 mg/dL (8.4-10.2); Carbon Dioxide 19 mmol/L (22-29); Chloride 108 mmol/L (96-108); Creatinine Clr Calc Pharmacy 70.6; Estimated Glomerular Filt Rate > 60; Lipase 29 U/L (8-78); Magnesium 1.6 mg/dL (1.6-2.6); Potassium 3.9 mmol/L (3.3-5.1); Sodium 144 mmol/L (135-145); Total Protein 6.7 g/dL (6.5-8.0)
[2024-12-16 09:42] LABS: Resp Syncy Virus RNA Qual PCR NEGATIVE (Negative); SARS COV2 PCR INHOUSE NEGATIVE (Negative)
[2024-12-16] MEDS: iohexoL 350 MG/ML 100 ML INFUS..BTL IV (10:11)
[2024-12-16 10:21] VITALS: BP 179/55; PULSE 79; RESP 16; TEMP 36.8; O2SAT 98
[2024-12-16 10:39] LABS: Appearance Urine Clear; Glucose Urine UA >=1000 mg/dL (Negative); PH 8.5 (5.0-9.0); Specific Gravity - Urine 1.020 (1.005-1.025); UMIC TRIGGER UACC YES
[2024-12-16 10:41] LABS: Free T4 (Free Thyroxine) 1.31 ng/dL (0.71-1.85)
--- NOTE | 2024-12-16 10:50 | PC.NURSE ---
Patient presents to ED from Home. Patient c/o N/v/d since 0300 this AM. Patient reports 6 episodes of vomiting non bloody. Denies SOB Patient is DM 1. patient has insulin pump POC 267 Patient was at a winery yesterday, but reports she only drinks a coupl times a month. ABD pain rated 5/[address] IV 20 in left hand, This jingle writer placed an additional 20G in right AC. Patient able to transfer to bedside commode, only urinating. Sample collected sent to lab No episodes of vomiting or diarrhea noted in ED. Patient did have episodes of dry heaving Patients partner is at bedside
--- NOTE | 2024-12-16 11:00 | PC.NURSE ---
Patient went to CT for Abdome/pelvic scan. Patient has insulin, insulin pump removed at CT Pump is with patients partner at bedside
[2024-12-16 12:28] VITALS: BP 114/58; PULSE 68; RESP 14; O2SAT 97
[2024-12-16 14:28] LABS: Alanine Aminotransferase 48 U/L (0-31); Albumin Level 4.0 g/dL (3.5-5.0); Alkaline Phosphatase 102 U/L (39-117); Anion Gap 15 (12-20); Aspartate Amino Transferase 77 U/L (5-31); Blood Urea Nitrogen 15 mg/dL (9-16); Calcium 9.0 mg/dL (8.4-10.2); Carbon Dioxide 25 mmol/L (22-29); Chloride 109 mmol/L (96-108); Creatinine Clr Calc Pharmacy 81.7; Estimated Glomerular Filt Rate > 60; Potassium 4.6 mmol/L (3.3-5.1); Sodium 144 mmol/L (135-145); Total Protein 6.3 g/dL (6.5-8.0)
[2024-12-16 15:01] VITALS: BP 114/56; PULSE 75; RESP 14
--- NOTE | 2024-12-16 15:04 | ECG_ITS ---
Test Reason : RE-EVALUATE QTC Blood Pressure : */* mmHG Vent. Rate : 75 BPM Atrial Rate : 75 BPM P-R Int : 180 ms QRS Dur : 78 ms QT Int : 438 ms P-R-T Axes : 37 4 9 degrees QTcB Int : 489 ms Normal sinus rhythm Normal ECG When compared with ECG of 16-Dec-2024 08:50, Criteria for Septal infarct are no longer Present QT has shortened Referred By: Lea Echavarria Electronically Signed By: ABDULLAHI ROWAN MD
[2024-12-16 16:08] VITALS: BP 114/56; PULSE 75; RESP 14; TEMP 36.6; O2SAT 97
== END 2024-12-16 16:10 | disposition home or self-care (01) ==
PROVIDERS: Physician Assistant Medical; Emergency Provider Emergency Medicine
DX: K52.9 Noninfective gastroenteritis and colitis, unspecified (principal); R11.2 Nausea with vomiting, unspecified; R10.9 Unspecified abdominal pain; K44.9 Diaphragmatic hernia without obstruction or gangrene; E10.9 Type 1 diabetes mellitus without complications; E78.5 Hyperlipidemia, unspecified; E03.9 Hypothyroidism, unspecified; Z03.818 Encounter for observation for suspected exposure to other biological agents ruled out
CPT/HCPCS: 36415; 74177; 80053; 81001; 82010; 82803; 83690; 83735; 84439; 84443; 84484; 85025; 85610; 87637; 93005; 96361; 96365; 96366; 96375; 99285; J2270; J3475; J7120; Q9967

== ENCOUNTER → 2024-12-16 08:21 | Outpatient (BNV) | payer OTHER, SELFPAY | PROVIDERS: Visit Provider Internal Medicine Cardiovascular Disease | DX: I25.2 Old myocardial infarction (principal) | CPT/HCPCS: 93010 ==

== ENCOUNTER → 2024-12-16 08:36 | Outpatient (BNV) | payer OTHER, SELFPAY | PROVIDERS: Visit Provider Radiology Vascular & Interventional Radiology | DX: R10.9 Unspecified abdominal pain (principal) | CPT/HCPCS: 74177 ==

== ENCOUNTER 2024-12-17 16:17 | Inpatient (IN) | payer OTHER, SELFPAY ==
[2024-12-17] VITALS (7 sets, daily range): BP systolic 95–175; BP diastolic 38–76; PULSE 73–106; RESP 15–25; TEMP 36.4–36.8; O2SAT 94–100; BMI 31.1
--- NOTE | ~2024-12-17 | US_ITS ---
EXAMINATION: US ABDOMEN LIMITED CLINICAL INFORMATION: Abnormal liver function enzymes . COMPARISON: July 12, 2024 TECHNIQUE: Real-time ultrasound of the right upper quadrant abdomen using grayscale technique. Limited examination. FINDINGS: Liver measures 16 cm. Normal echotexture. No nodular contour. No gross solid or cystic lesion detected by the technologist. Status post cholecystectomy. Common bile duct measures 6 mm. No peripancreatic fluid collections. No ascites. US/US abdomen limited IMPRESSION: Status post cholecystectomy and 7 mm common bile duct which could be normal for post procedure. Stricture at the sphincter of Oddi and or distal choledocholithiasis cannot be excluded. Up to normal limits liver size. Electronically signed by: Austin Carver MD 12/21/2024 08:14 AM EDT
--- NOTE | 2024-12-17 16:24 | ECG_ITS ---
Test Reason : WEAKNESS Blood Pressure : */* mmHG Vent. Rate : 60 BPM Atrial Rate : 60 BPM P-R Int : 144 ms QRS Dur : 80 ms QT Int : 444 ms P-R-T Axes : 68 -5 56 degrees QTcB Int : 444 ms Normal sinus rhythm Septal infarct , age undetermined Abnormal ECG When compared with ECG of 16-Dec-2024 15:21, Septal infarct is now Present Referred By: Nidia Schwartz Electronically Signed By: ABDULLAHI ROWAN MD
[2024-12-17 16:34] LABS: Glucose, Whole Blood 370 mg/dL (60-115)
[2024-12-17] MEDS: diazePAM 10 MG/2 ML CARTRIDGE 2.5 MG IVPUSH ×2 (16:45→23:03)
[2024-12-17] MEDS: Lactated Ringers 3,000 ML 999 ML IV (16:46)
--- NOTE | 2024-12-17 16:46 | ED.NAVMDI ---
HPI - Nausea/Vomiting/Diarrhea General Chief complaint: Nausea/Vomiting/Diarrhea Stated complaint: ?DKA POC 354 Time Seen by Provider: 12/17/24 16:19 Source: patient and EMS Mode of arrival: EMS Limitations: no limitations History of Present Illness ED Provider: Dr. Nidia Schwartz HPI Narrative: Patient comes to the emergency room via ambulance. Patient was seen here yesterday for nausea vomiting and diarrhea. Patient returns today with the same symptoms. Patient believes she is in DKA. Patient complaining of 02/08 nonradiating diffuse abdominal pain. Related Data Home Medications ?Medication ?Instructions ?Recorded ?Confirmed multivitamin 1 tab PO DAILY 04/02/20 11/10/23 blood-glucose meter (FreeStyle 01/19/22 11/10/23 Lite Meter kit) gabapentin 100 mg capsule 100 mg PO BEDTIME 06/18/24 gabapentin 300 mg capsule 300 mg PO BEDTIME 06/18/24 Previous Rx's ?Medication ?Instructions ?Recorded blood sugar diagnostic (FreeStyle #150 ea 03/31/21 Lite Strips) lisinopril 10 mg tablet 10 mg PO DAILY #90 tabs 09/01/22 glucagon 3 mg/actuation nasal 3 mg intranasal ONCE #2 ea 10/27/22 spray (Baqsimi) blood-glucose sensor (Dexcom G6 #3 ea 11/19/22 Sensor device) levothyroxine 100 mcg tablet 100 mcg PO DAILY #90 tabs 02/01/23 blood-glucose transmitter (Dexcom #1 ea 03/07/23 G6 Transmitter device) insulin lispro 100 unit/mL See Rx Instructions subcut DAILY 04/17/23 subcutaneous solution (Humalog #30 mL U-100 Insulin) simvastatin 20 mg tablet 20 mg PO BEDTIME #90 tabs 11/02/23 cyclobenzaprine 10 mg tablet 10 mg PO TID 10 days #30 tabs 10/01/24 prednisone 20 mg tablet 40 mg (2 x 20 mg) PO daily 5 days 10/01/24 #10 tabs meloxicam 15 mg tablet 15 mg PO DAILY #30 tabs 11/06/24 citalopram 40 mg tablet 40 mg PO DAILY #90 tabs 11/28/24 Allergies Allergy/AdvReac Type Severity Reaction Status Date / Time No Known Allergies (No Known Allergy Verified 12/17/24 16:35 Allergies*) Review of Systems Review of Systems: Constitutional : No Weight loss, No Fever, No Chills, No Night Sweats, No Fatigue, No Malaise ENT/Mouth : No Hearing loss, No Ear Pain, No Nasal Congestion, No Sinus Pain, No Hoarseness, No sore throat, No Rhinorrhea, No Swallowing Difficulty Eyes: No Eye Pain, No Swelling, No Redness, No Foreign Body, No Discharge, No Vision Changes Cardiovascular : No Chest Pain, No SOB, No Dyspnea on Exertion, No Orthopnea, No Edema, No Palpitations Respiratory : No Cough, No Sputum, No Wheezing, No Smoke Exposure, No Dyspnea Gastrointestinal : Complaining of nausea vomiting diarrhea, No Constipation, complaining of diffuse abdominal pain Genitourinary : no irregular bleeding, No Dysuria, No Urinary Frequency, No Hematuria, No Urinary Incontinence, No Urgency, No Flank Pain, No Urinary Flow Changes, No Hesitancy Musculoskeletal : No joint pain, No Myalgias, No Joint Swelling Skin : No Skin Lesions, No rash Neuro : No Weakness, No Numbness, No Paresthesias, No Loss of Consciousness, No Dizziness, No Headache Psych : No Anxiety/Panic, No Depression, No SI/HI/AH/VH, No Social Issues, Heme/Lymph: No Bruising, No Bleeding,No Lymphadenopathy Endocrine : No Polyuria, No Polydipsia, No Temperature Intolerance PMFSH Past Medical History Medical History Obesity due to excess calories Hx of small bowel obstruction Carpal tunnel syndrome Depression with anxiety Type 1 diabetes mellitus with hyperglycemia Type 1 diabetes mellitus with diabetic neuropathy Hyperlipidemia LDL goal <100 Hypothyroidism, unspecified Surgical History History of tooth extraction History of eye surgery Hx of esophagogastroduodenoscopy Hx laparoscopic cholecystectomy Hx of hysterectomy Hx of colonoscopy Family History Family History Father CVD (cardiovascular disease) CHF (congestive heart failure) Mother Diabetes mellitus Paternal Grandfather Diabetes mellitus Paternal Grandmother Diabetes mellitus Sister Diabetes mellitus Pancreatic cancer Brother Pancreatic cancer Social History Social History Household Members: Significant Other Housing: House Are you a primary housekeeper child care to a significant other at home: No Do you presently have visiting nurse or other home services: No Alcohol intake: current Alcohol intake frequency: holidays/special occasions only Alcohol type: wine Patient Tobacco Use Status: Former Tobacco user Smoked in Last 30 Days: No e-Cigarette/Vaping Use: Currently Using Second Hand Smoke Exposure: Yes Use of substances other than those prescribed or required for medical reasons: Yes Substance Use Type: Marijuana Advance Directives: No Advance Directives Information Provided: No Do you have a plan to hurt others: No Plan service: No Current occupational status: employed Current occupation: [employer] Cognitive needs: No Hearing needs: No Vision needs: Yes (glass) Physical Exam Exam: Exam: Appearance: Alert. Oriented X3. Very anxious Eyes: Pupils equal, round and reactive to light. ENT: Pharynx normal. Neck: Normal inspection. Neck supple. No lymph nodes noted. No crepitus CVS: Normal heart rate and rhythm. Pulses normal. Normal S1 and S2 Respiratory: No respiratory distress. Breath sounds normal. No Wheezing. No rales Abdomen: Soft and nontender. No rigidity. No distention. Skin: Skin warm and dry. Normal skin color. Normal skin turgor. Extremities: No lower extremity edema. No Lacerations. No Rash Neuro: Oriented X 3. No motor deficit. No sensory deficit. Moving all extremities. No slurred speech. CN 2 through 12 grossly intact Psych: Very anxious Vital Signs: Vital Signs: Last Vital Signs Temp 98.0 F 12/17/24 22:00 Pulse 96 12/17/24 22:00 Resp 18 12/17/24 22:00 BP 135/55 L 12/17/24 22:00 Pulse Ox 97 12/17/24 22:00 O2 Del Method Room Air 12/17/24 22:00 BMI result Body Mass Index 31.1 Course Course Course Narrative: Patient reporting worsening symptoms since yesterday. Complaining of nausea vomiting diarrhea, patient believes she is in DKA, patient known to be type 1 diabetic. Patient also noticeably very anxious Medications Administered Discontinued Medications Generic Name Dose Route Start Last Admin Trade Name Freq PRN Reason Stop Dose Admin Diazepam 2.5 mg 12/17/24 16:26 12/17/24 16:45 Diazepam 10 Mg/2 Ml Cartridge IVPUSH 12/17/24 16:27 2.5 mg STAT STA Administration Diazepam 2.5 mg 12/17/24 22:57 12/17/24 23:03 Diazepam 10 Mg/2 Ml Cartridge IVPUSH 12/17/24 22:58 2.5 mg STAT STA Administration Lactated Ringer's 3,000 mls @ 999 mls/hr 12/17/24 16:30 12/17/24 19:47 Lr IV 12/17/24 19:30 Infused .Q3H1M YAN Infusion Insulin Human Regular 10 unit 12/17/24 16:24 12/17/24 16:45 Insulin Regular, Human 100 Unit/Ml 10 Ml Vial IVPUSH 12/17/24 16:25 10 unit ONCE ONE Administration Ondansetron HCl 4 mg 12/17/24 16:45 12/17/24 16:56 Ondansetron Hcl 4 Mg/2 Ml Vial IVPUSH 12/17/24 16:46 4 mg ONCE ONE Administration Prochlorperazine Edisylate 10 mg 12/17/24 22:58 12/17/24 23:01 Prochlorperazine Edisylate 10 Mg/2 Ml Vial IVPUSH 12/17/24 22:59 10 mg ONCE ONE Administration Sodium Bicarbonate 50 meq 12/17/24 18:25 12/17/24 20:33 Sodium Bicarbonate 8.4% 50 Meq/50 Ml Syringe IVPUSH 12/17/24 18:26 50 meq ONCE ONE Administration Medical Decision Making Medical Decision Making [facility] Narrative: My interpretation of labs: Patient's white blood cell count is 16.7. Patient reports nausea vomiting diarrhea, diagnosed with the anterior this yesterday. Hemoglobin is 10.9, reports no rectal bleeding. Likely hemodilution from fluids from yesterday. PH 7.29, bicarb 13, patient's glucose 383, anion gap 22, normal LFTs, urinalysis negative for UTI Patient very anxious, needed this is a coming to times due to anxiety. After the 3 L of IV fluids, patient's chemistry improved, anion gap closed, in his blood gases pH increased to 7.45, bicarb 20 Overall, given the patient's presentation and symptoms, it would be best to keep the patient in the hospital. Patient agrees with plan I discussed the patient with Dr. Cueto, patient to be admitted Lab Data 12/17/24 17:22 12/17/24 20:46 Labs: Lab Results 12/17/24 12/17/24 12/17/24 Range/Units 16:29 17:03 17:21 WBC (4.8-10.8) X10*3/uL RBC (4.20-5.50) X10*6/uL Hgb (12.0-16.0) g/dl Hct (37.0-47.0) % MCV (80.0-98.0) fL MCH (27.0-33.0) pg MCHC (31.0-35.0) g/dl RDW (11.0-16.0) % Plt Count (160-400) X10*3/uL MPV (9.4-12.3) fL Immature Gran % (Auto) (0.0-0.4) % Neut % (Auto) (45-73) % Lymph % (Auto) (20-40) % Yell % (Auto) (2-11) % Eos % (Auto) (0-4) % Baso % (Auto) (0-2) % Lymph # (Auto) (1.2-4.9) X10*3/uL Yell # (Auto) (0.1-1.2) X10*3/uL Eos # (Auto) (0.0-0.4) X10*3/uL Baso # (Auto) (0.0-0.2) X10*3/uL Abs Immat Gran (auto) (0.00-0.03) X10*3/uL Absolute Neuts (auto) (2.0-8.3) x10*3/uL Absolute Nucleated RBC (0.0-0.012) X10*3/uL Nucleated RBC % (auto) (0.0-0.2) /100WBC VBG pH (7.32-7.43) VBG pCO2 mmHg VBG pO2 mmHg VBG HCO3 (22-26) mmol/L VBG O2 Saturation % VBG Base Excess mmol/L Sodium 140 (135-145) mmol/L Potassium 3.8 (3.3-5.1) mmol/L Chloride 109 H (96-108) mmol/L Carbon Dioxide 13 L (22-29) mmol/L Anion Gap 22 H (12-20) BUN 20 H (9-16) mg/dL Creatinine 0.84 (0.5-1.4) mg/dL Estim Creat Clear Calc 67.4 Estimated GFR > 60 POC Glucose 370 H* 286 H (60-115) mg/dL Random Glucose 383 H* (60-115) mg/dL Calcium 8.9 (8.4-10.2) mg/dL Magnesium 1.8 (1.6-2.6) mg/dL Total Bilirubin 0.5 (0.0-1.0) mg/dL Direct Bilirubin 0.2 (0.0-0.5) mg/dL AST 58 H (5-31) U/L ALT 37 H (0-31) U/L Alkaline Phosphatase 99 (39-117) U/L Total Protein 6.2 L (6.5-8.0) g/dL Albumin 3.8 (3.5-5.0) g/dL Lipase 6 L (8-78) U/L Beta-Hydroxybutyrate 2.29 H (0.02-0.27) mmol/L Urine Color Urine Appearance Urine pH (5.0-9.0) Ur Specific [place] (1.005-1.025) Urine Protein (Neg-Trace) mg/dL Urine Glucose (UA) (Negative) mg/dL Urine Ketones (Negative) mg/dL Urine Blood (Negative) Urine Nitrite (Negative) Ur Leukocyte Esterase (Negative) Urine RBC (0-2) /HPF Urine WBC (0-5) /HPF Ur Squamous Epith Cells (0-2) /HPF Urine Bacteria (None Seen) Hyaline Casts (0-2) /LPF Urine Opiates Screen (Not Detect) Ur Buprenorphine Scrn (Not Detect) ng/mL Ur Oxycodone Screen (Not Detect) ng/mL Urine Methadone Screen (Not Detect) ng/mL Urine Fentanyl Screen (Not Detect) Ur Barbiturates Screen (Not Detect) Ur Phencyclidine Scrn (Not Detect) Ur Amphetamines Screen (Not Detect) U Benzodiazepines Scrn (Not Detect) Urine Cocaine Screen (Not Detect) U Marijuana (THC) Screen (Not Detect) 12/17/24 12/17/24 12/17/24 Range/Units 17:22 17:28 18:06 WBC 16.7 H (4.8-10.8) X10*3/uL RBC 3.67 L (4.20-5.50) X10*6/uL Hgb 10.9 L (12.0-16.0) g/dl Hct 33.4 L (37.0-47.0) % MCV 91.0 D (80.0-98.0) fL MCH 29.7 (27.0-33.0) pg MCHC 32.6 (31.0-35.0) g/dl RDW 13.4 (11.0-16.0) % Plt Count 266 (160-400) X10*3/uL MPV 10.9 (9.4-12.3) fL Immature Gran % (Auto) 2.0 H (0.0-0.4) % Neut % (Auto) 87.7 H (45-73) % Lymph % (Auto) 7.4 L (20-40) % Yell % (Auto) 2.6 (2-11) % Eos % (Auto) 0.1 (0-4) % Baso % (Auto) 0.2 (0-2) % Lymph # (Auto) 1.2 (1.2-4.9) X10*3/uL Yell # (Auto) 0.4 (0.1-1.2) X10*3/uL Eos # (Auto) 0.0 (0.0-0.4) X10*3/uL Baso # (Auto) 0.0 (0.0-0.2) X10*3/uL Abs Immat Gran (auto) 0.34 H (0.00-0.03) X10*3/uL Absolute Neuts (auto) 14.7 H (2.0-8.3) x10*3/uL Absolute Nucleated RBC 0.000 (0.0-0.012) X10*3/uL Nucleated RBC % (auto) 0.0 (0.0-0.2) /100WBC VBG pH 7.29 L (7.32-7.43) VBG pCO2 26 mmHg VBG pO2 40 mmHg VBG HCO3 13 L (22-26) mmol/L VBG O2 Saturation 56.0 % VBG Base Excess -11.4 mmol/L Sodium (135-145) mmol/L Potassium (3.3-5.1) mmol/L Chloride (96-108) mmol/L Carbon Dioxide (22-29) mmol/L Anion Gap (12-20) BUN (9-16) mg/dL Creatinine (0.5-1.4) mg/dL Estim Creat Clear Calc Estimated GFR POC Glucose (60-115) mg/dL Random Glucose (60-115) mg/dL Calcium (8.4-10.2) mg/dL Magnesium (1.6-2.6) mg/dL Total Bilirubin (0.0-1.0) mg/dL Direct Bilirubin (0.0-0.5) mg/dL AST (5-31) U/L ALT (0-31) U/L Alkaline Phosphatase (39-117) U/L Total Protein (6.5-8.0) g/dL Albumin (3.5-5.0) g/dL Lipase (8-78) U/L Beta-Hydroxybutyrate (0.02-0.27) mmol/L Urine Color Yellow Urine Appearance Clear Urine pH 6.0 (5.0-9.0) Ur Specific [place] 1.025 (1.005-1.025) Urine Protein Trace (Neg-Trace) mg/dL Urine Glucose (UA) >=1000 H (Negative) mg/dL Urine Ketones >=160 (Negative) mg/dL Urine Blood Negative (Negative) Urine Nitrite Negative (Negative) Ur Leukocyte Esterase Trace H (Negative) Urine RBC 0-2 (0-2) /HPF Urine WBC 6-10 H (0-5) /HPF Ur Squamous Epith Cells 0-2 (0-2) /HPF Urine Bacteria None Seen (None Seen) Hyaline Casts 0-2 (0-2) /LPF Urine Opiates Screen Not Detected (Not Detect) Ur Buprenorphine Scrn Not Detected (Not Detect) ng/mL Ur Oxycodone Screen Not Detected (Not Detect) ng/mL Urine Methadone Screen Not Detected (Not Detect) ng/mL Urine Fentanyl Screen Not Detected (Not Detect) Ur Barbiturates Screen Not Detected (Not Detect) Ur Phencyclidine Scrn Not Detected (Not Detect) Ur Amphetamines Screen Not Detected (Not Detect) U Benzodiazepines Scrn Not Detected (Not Detect) Urine Cocaine Screen Not Detected (Not Detect) U Marijuana (THC) Screen POSITIVE H (Not Detect) 12/17/24 12/17/24 Range/Units 20:46 20:50 WBC (4.8-10.8) X10*3/uL RBC (4.20-5.50) X10*6/uL Hgb (12.0-16.0) g/dl Hct (37.0-47.0) % MCV (80.0-98.0) fL MCH (27.0-33.0) pg MCHC (31.0-35.0) g/dl RDW (11.0-16.0) % Plt Count (160-400) X10*3/uL MPV (9.4-12.3) fL Immature Gran % (Auto) (0.0-0.4) % Neut % (Auto) (45-73) % Lymph % (Auto) (20-40) % Yell % (Auto) (2-11) % Eos % (Auto) (0-4) % Baso % (Auto) (0-2) % Lymph # (Auto) (1.2-4.9) X10*3/uL Yell # (Auto) (0.1-1.2) X10*3/uL Eos # (Auto) (0.0-0.4) X10*3/uL Baso # (Auto) (0.0-0.2) X10*3/uL Abs Immat Gran (auto) (0.00-0.03) X10*3/uL Absolute Neuts (auto) (2.0-8.3) x10*3/uL Absolute Nucleated RBC (0.0-0.012) X10*3/uL Nucleated RBC % (auto) (0.0-0.2) /100WBC VBG pH 7.45 H (7.32-7.43) VBG pCO2 29 mmHg VBG pO2 39 mmHg VBG HCO3 20 L (22-26) mmol/L VBG O2 Saturation 62.0 % VBG Base Excess -2.3 mmol/L Sodium 139 (135-145) mmol/L Potassium 4.1 (3.3-5.1) mmol/L Chloride 105 (96-108) mmol/L Carbon Dioxide 21 L (22-29) mmol/L Anion Gap 17 (12-20) BUN 19 H (9-16) mg/dL Creatinine 0.76 (0.5-1.4) mg/dL Estim Creat Clear Calc 74.5 Estimated GFR > 60 POC Glucose (60-115) mg/dL Random Glucose 296 H (60-115) mg/dL Calcium 8.8 (8.4-10.2) mg/dL Magnesium (1.6-2.6) mg/dL Total Bilirubin (0.0-1.0) mg/dL Direct Bilirubin (0.0-0.5) mg/dL AST (5-31) U/L ALT (0-31) U/L Alkaline Phosphatase (39-117) U/L Total Protein (6.5-8.0) g/dL Albumin (3.5-5.0) g/dL Lipase (8-78) U/L Beta-Hydroxybutyrate (0.02-0.27) mmol/L Urine Color Urine Appearance Urine pH (5.0-9.0) Ur Specific [place] (1.005-1.025) Urine Protein (Neg-Trace) mg/dL Urine Glucose (UA) (Negative) mg/dL Urine Ketones (Negative) mg/dL Urine Blood (Negative) Urine Nitrite (Negative) Ur Leukocyte Esterase (Negative) Urine RBC (0-2) /HPF Urine WBC (0-5) /HPF Ur Squamous Epith Cells (0-2) /HPF Urine Bacteria (None Seen) Hyaline Casts (0-2) /LPF Urine Opiates Screen (Not Detect) Ur Buprenorphine Scrn (Not Detect) ng/mL Ur Oxycodone Screen (Not Detect) ng/mL Urine Methadone Screen (Not Detect) ng/mL Urine Fentanyl Screen (Not Detect) Ur Barbiturates Screen (Not Detect) Ur Phencyclidine Scrn (Not Detect) Ur Amphetamines Screen (Not Detect) U Benzodiazepines Scrn (Not Detect) Urine Cocaine Screen (Not Detect) U Marijuana (THC) Screen (Not Detect) Critical Care Time Critical Care Time Critical Care Time: Yes Total Critical Care Time: 60 Attestation: I have personally provided critical care time. Time includes review of lab data, radiology results, discussion with consultants, and monitoring for potential decompensation. Intervention performed as documented. Discharge Plan Discharge Clinical Impression: Nausea vomiting and diarrhea, Hyperglycemia, Dehydration Patient Disposition: Admitted As Inpatient Print Language: Polish
--- OUTSIDE RECORDS SUMMARY | 2024-12-17 16:58 | XMS_ITS | Clinical Summary ---
Author Organization [facility] Address [address] [facility] [address] [place] [phone] Phone Care Team Providers Care Plant Engineering Manager Name Role Phone Daniel Wayne MD Primary Care Provider [phone] Allergies No known active allergies Medications citalopram (CELEXA) 40 MG tablet Take 1 tablet by mouth every morning. 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 USED TO TEST GLUCOSE 3 TIMES DAILY 1 each 12/21/19 Active meloxicam (MOBIC) 15 MG tablet Take 15 mg by mouth daily. 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 She was unaware of the low and only knew about the lows as it was time to check her glucose levels to bolus for food. She is awaiting a new transmitter from [employer] to restart using the continuous glucose monitor Assessment & Plan (10/22/2023 6:51 PM EDT): Suboptimal control by tandem pump and Dexcom G6 download. Average glucose 179, GMI 7.6%. In target range 60% of the time. No frequent or severe hypoglycemia. Postprandial highs midmorning and the more sustained highs mid afternoon part related to snacking. Gained 9 pounds since March. Improved neuropathy on feet with gabapentin but still has some intermittent paresthesia on feet. Plan to decrease afternoon snacks. Continue to work on regular exercise to help control weight. May add 600 mg alpha lipoid acid OTC daily which may help with neuropathy symptoms. Labs today. Reviewed symptoms, prevention and treatment of hypoglycemia. Call if blood sugar below 70 or over 250 repeatedly. Patient will schedule eye exam. Assessment & Plan (04/01/2023 8:14 AM EST): She was diagnosed with type 1 diabetes after her 38 years. After the she was tried on oral medication and this didn't control her glucose levels. She was then switched to insulin. She has been on insulin pump therapy for 26-27 years. She has a history of severe hypoglycemia passing out but this has not happened in over 20 years. She has several episode of hypoglycemia requiring help from her partner to bring her glucose levels back up. She has hypoglycemia unawareness. Her control is good based upon her insulin pump and CGM downloads. She is having issues with post prandial spikes because she is not bolusing for meals. She is not bolusing for meals because every time she does her glucose levels crash. Discussed rationale & goals for control. Role of diet, exercise, medications. Role of & goals for HbA1c & SMBG. Reviewed options to improve control with risks & benefits, including intensification of lifestyle. Reviewed normal insulin physiology, role of basal/bolus insulin. Reviewed appropriate timing of rapid acting analog in relation to meals. Reviewed site rotation, effect of site on insulin absorption. She recently has had issues with hyperglycemia and this is likely due to scar tissue from joint terminal attack controller use of the insulin pump. She took manual insulin injection drank water and changed her infusion site. This improved the hyperglycemia. Discussed prevention & treatment of hypoglycemia. Will send a prescription for Gvoke as she had severe headaches after using baqsimi. Will adjust her insulin to carb ratio to 1:15 to help make her more comfortable to be able to bolus before meals. Continue to work on eating healthy & keeping active. To call or send in log with problems with glucose control. Foot & nail care good. Up to date with ophtho, to request report be sent here. Labs order include antibodies to ensure type 1 diagnosis is correct. Will order a c-peptide and fasting glucose to have for when she switches to medicare to be able to continue pump therapy. She was also seen by Dr Hobbs to discuss the treatment plan. DM type 1 with diabetic peripheral neuropathy Assessment & Plan (11/08/2024 1:59 PM EDT): We were able to enter her pump settings from her download to her new insulin pump. She is going to finish the insulin in her current pump cartridge and then will switch over to the new pump. When reviewing the pump and sensor, her current insulin pump has been in activity mode for the last week plus. This has resulted in her glucose levels going up and down throughout the day and sometimes several times throughout the day. Rather than adjust her pump settings will have her resume her normal control IQ. With the control IQ resuming her glucose levels should stabilize. Showed her how to look at her pump to determine if it is in activity mode. She will call if she has any further issues with changing to the new pump. Assessment & Plan (06/27/2024 9:54 AM EST): Control is reasonable based upon the patient's insulin pump and sensor download. No frequent or severe hypoglycemia. When reviewing her pump download, she has been in exercise mode for 2 weeks with it recently turning off. Discussed lets leave her current settings as now she is not in exercise mode her control IQ will be a little more aggressive in her corrections and this should improve her control. Continue to work on eating healthier and being active. To call or message with any issues managing her glucose levels. [facility] Reviewed recent labs, labs ordered to be done prior to next visit. Assessment & Plan (01/12/2024 1:50 PM EDT): Reviewed the patient's last insulin pump download. Used the pump settings from the last download to program her new insulin pump. Up dated her control IQ settings to reflect her current weight and total daily insulin doses. Set her new dexcom transmitter number in the pump to begin when she switches to this news pump.Then reviewed her current pump settings to ensure everything matched. Everything was set properly. She still has 195 units of insulin left in her current pump. She is going to finish that and then start the new pump. She is still having issues with getting her insulin but will check again with the pharmacy and see if they have it ready. If not she will reach out to the office to have the prescription sent elsewhere. Assessment & Plan (01/03/2024 9:27 AM EDT): Control is unknown as the patient doesn't want her pump, CGM, or glucometer downloaded due to her glucose levels running high. No frequent hypoglycemia. She had a couple lows while off of the dexcom but was able to treat and was fine. Will maintain her current pump settings. Will make any needed adjustments next week at her pump training. Continue to work on eating healthy and being active. To call or message with any issues managing his glucose levels. Up to date with [email or web address]. Labs ordered to be done prior to next visit. Assessment & Plan (05/20/2023 9:57 AM EST): Control is improving based upon the patient's insulin pump and dexcom G6 download. No frequent or severe hypoglycemia. She is getting more comfortable with trusting the pump. She has not been entering as many carbohydrates as she is eating. Discussed making sure to enter her carbs that way we can determine if any further setting adjustments are needed. Continue to work on eating healthy and being active. To call or message with any issues managing his glucose levels. [facility] with [email or web address] Labs ordered to be done prior to next visit. Acquired hypothyroidism 03/30/2023 Assessment & Plan (06/27/2024 9:50 AM EST): She is euthyroid on recent labs, will maintain her dosing. Labs ordered to be done prior to next visit Assessment & Plan (01/03/2024 9:23 AM EDT): She is consistent with taking her levothyroxine 100 mcg 6 days a week and skipping the 7th day. Will order labs as she has been gaining weight to determine if medication adjustments are needed Assessment & Plan (10/22/2023 6:51 PM EDT): Was slightly over replaced in 05/2023 with TSH 0.23 while taking 100 mcg levothyroxine daily. Her dose was decreased to 6 days/week. Clinically seems euthyroid. Will check TSH and adjust dose as needed. Reviewed symptoms of under and over replacement, patient to call if concern. Assessment & Plan (05/20/2023 9:53 AM EST): Her recent TSH is suppressed. Will lower her levothyroxine to taking 1- 100 mcg tablet 6 days a week and skipping the 7th day. Will check labs in 8 weeks to determine if further dosing adjustments is needed Assessment & Plan (03/31/2023 7:18 AM EST): Will check levels to determine if medication adjustments are needed Insulin pump in place 03/30/2023 Assessment & Plan (11/07/2024 3:17 PM EDT): She is using the tandem t-slim control IQ insulin pump and getting supplies from tandem. She is using the dexcom G6 CGM and getting supplies from the local pharmacy Assessment & Plan (06/27/2024 9:50 AM EST): She is using the tandem t-slim control IQ insulin pump and getting supplies from tandem. She is using the dexcom G6 CGM and getting supplies from the local pharmacy Assessment & Plan (01/12/2024 1:21 PM EDT): She is using the tandem t-slim control IQ insulin pump and getting supplies from tandem. She is using the dexcom G6 CGM and getting supplies from the local pharmacy Assessment & Plan (01/03/2024 8:52 AM EDT): She is using the tandem t-slim control IQ insulin pump and getting supplies from tandem. She is using the dexcom G6 CGM and getting supplies from the local pharmacy Assessment & Plan (05/20/2023 9:57 AM EST): She is using the tandem t-slim control IQ insulin pump and getting supplies from [employer]. She is using the dexcom G6 CGM and getting supplies from the local pharmacy Assessment & Plan (03/31/2023 7:18 AM EST): She is using the tandem t-slim control IQ insulin pump and getting supplies from [employer]. She is using the dexcom G6 CGM and getting supplies from the local pharmacy Encounters Date Type Department Care Team Description 11/11/2024 Refill [facility] [address] [place] [address] Agnelia Encinas PA-C Medication Refill 11/09/2024 Telephone [facility] [address] [place] [phone] Angelia Encinas PA-C [facility] Issue 11/07/2024 1:30 PM EDT Office Visit [facility] [address] [place] [address] Angelia Encinas PA-C 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); Insulin pump in place 10/08/2024 Refill [facility] [address] [place] [address] Angelia Encinas PA-C Medication Refill from Last 3 Months Social History Tobacco Use Types Packs/Day Years Used Date Smoking Tobacco: Former Cigarettes 0.3 10 1 3 - 1982 Passive Smoke Exposure: Past Smokeless Tobacco: Never Tobacco Cessation:Counseling Given: Not Answered Alcohol Use Standard Drinks/Week Comments Yes 0 (1 standard drink = 0.6 oz pur e alcohol) social Education Answer Date Recorded Are you interested in more education? Not on julio e 01/16/2023 Are you concerned about learning? Not on file 01/16/2023 No 01/16/2023 No 01/16/2023 Digital Access Answer Date Recorded No 01/16/2023 No 01/16/2023 Reliable internet access at home? Not on file 01/16/2023 Device with a working camera? Not on file Comments Unknown Sex and Gender Information Value Date Recorded Sex Assigned at Female 03/28/2023 3:45 PM EST Legal Sex Female 9:07 AM EDT Gender Identity Female 03/28/2023 3:45 PM EST Sexual Orientation Straight 03/28/2023 3: 45 PM EST Last Filed Vital Signs Vital Sign Reading Time Taken Comments Blood Pressure 118/72 06/27/2024 8:04 AM EST Pulse 81 06/27/2024 8:04 AM EST Temperature 36.5 C (97.7 F) 03/27/2024 8:03 AM EST Respiratory Rate - - Oxygen Saturation 99% 03/27/2024 8:03 AM EST Inhaled Oxygen Concentration - - Weight 82.1 kg (181 lb) 06/27/2024 8:04 AM EST Height 163.8 cm (5' 4.49 ) 06/27/2024 8:04 AM ES T Body Mass Index 30.6 06/27/2024 8:04 AM EST Plan of Treatment Upcoming Encounters Date Type Department Care Team (Late st Contact Info) Description 12/24/2024 8:00 AM EDT Office Visit [facility] [address] [phone] Angelia Encinas PA-C [address] [place] [phone] 01/16/2025 9:00 AM EDT Nutrition [facility] [address] [place] [address] [place] [address] Carol Ann Beltran MD [address] [place] [phone] Cydney Perez LDN [address] [place] [phone] 03/11/2025 8:20 AM EST Office Visit [facility] [address] [place] [address] [place] [address] Ana Hobbs MD [address] [place] [phone] Health Maintenance Due Date Last Done Comments Adult Td,Tdap Booster 1957 DEPRESSION SCREENING 1969 HEPATITIS C SCREENING 11/17/1975 PNEUMOCOCCAL VACCINES (50+ years) (1 of 2 - PCV) 1976 MAMMOGRAM 1997 COLOGUARD 2002 COLONOSCOPY 2002 COLORECTAL CANCER SCREENING 2002 FIT TEST 2002 FOBT 2002 SIGMOIDOSCOPY 2002 VIRTUAL COLONOSCOPY 2002 ZOSTER VACCINES (1 of 2) 11/17/2007 RSV VACCINE (1 - Risk 60-74 years 1-dose series) 2017 OSTEOPOROSIS SCREENING INITI AL (ONE-TIME) 2022 DIABETIC EYE EXAM 03/30/2023 COVID-19 VACCINE (1 - 2023-2 5 season) 2024 HEMOGLOBIN A1C 03/23/2024 09/21/2023 POTASSIUM LEVEL 05/18/2024 05/18/2023 BLOOD PRESSURE 12/25/2024 06/27/2024 CREATININE LEVEL 06/20/2025 06/20/2024, 05/18/2023 TSH LEVEL 06/20/2025 06/20/2024, 09/21/2023, 05/18/2023 SMOKING STATUS SCREENING (On ce After 26 Yrs) Completed 03/27/2024 HEPATITIS A VACCINES Aged Out No long er eligible based on patient's age to complete this topic HIB VACCINES Aged Out No longer eligi ble based on patient's age to complete this topic MENINGOCOCCAL VACCINES (ACWY) Aged Out No longer eligible based on patient's age to complete this topic MENINGOCOCCAL VACCINES (B) Aged Out N o longer eligible based on patient's age to complete this topic Medical Devices Not on file Procedures Procedure Name Priority Date/Time Associated Diagnosis Comments COMPREHENSIVE METABOLIC PANEL Routine 06/20/2024 9:47 AM EST 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 TSH WITH REFLEX Routine 06/20/2024 9:46 AM EST Acquired hypothyroidism HEMOGLOBIN A1C Routine 09/21/2023 9:13 AM EDT 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 BASIC METABOLIC PANEL Routine 05/18/2023 8:08 AM EST 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 from Last 3 Months or Most Recently Relevant to Health Maintenance Results * Comprehensive metabolic panel (06/20/2024 9:47 AM EST) Blood us Ana Hobbs MD LAB BLOOD ORDERABLES Final Res ult Performing Organization Address [facility] Co de Phone Number [address] [phone] * TSH with reflex (06/20/2024 9:46 AM EST) Blood us Ana Hobbs MD LAB BLOOD ORDERABLES Final Res ult Performing Organization Address [facility] Phone Number [address] [phone] * (ABNORMAL) Hemoglobin A1c (09/21/2023 9:13 AM EDT) HEMOGLOBIN A1C 7.8(H) 4.3 - 5.8 % [facility] Blood 09/21/2023 9:13 AM EDT 09/21/2023 9:20 AM EDT us Ana Hobbs MD LAB BLOOD ORDERABLES Final Res ult Performing Organization Address [facility] de Phone Number [address] [phone] * Basic metabolic panel (05/18/2023 8:08 AM EST) Blood us Angelia Encinas PA-C LAB BLOOD ORDERABL ES Final Result Performing Organization Address [facility] Co de Phone Number [address] [address] from Last 3 Months or Most Recently Relevant to Health Maintenance Insurance [employer] PPO CIGNA PPO CIG[employer] PPO CIG[employer] PPO [employer]IG[employer] PPO [employer]IG[employer] PPO Care Teams Plant Engineering Manager Relationship Specialty Start Date End Date Daniel Wayne MD [address] [place] [address] [place] [address] PCP - General Internal Medicine 01/06/23 Additional Source Comments The information contained in this document represents components of the legal health record. It is not the complete legal health record.[facility]
--- NOTE | 2024-12-17 17:24 | PC.NURSE ---
Patient shut off personal insulin pump POC on arrival 370 POC after receiving 10units 270
[2024-12-17 17:26] LABS: Glucose, Whole Blood 286 mg/dL (60-115)
[2024-12-17 17:26] LABS: MANUAL DIFF FLAG NO
[2024-12-17 17:34] LABS: Alanine Aminotransferase 37 U/L (0-31); Albumin Level 3.8 g/dL (3.5-5.0); Alkaline Phosphatase 99 U/L (39-117); Anion Gap 22 (12-20); Aspartate Amino Transferase 58 U/L (5-31); Blood Urea Nitrogen 20 mg/dL (9-16); Calcium 8.9 mg/dL (8.4-10.2); Carbon Dioxide 13 mmol/L (22-29); Chloride 109 mmol/L (96-108); Creatinine Clr Calc Pharmacy 67.4; Estimated Glomerular Filt Rate > 60; Lipase 6 U/L (8-78); Magnesium 1.8 mg/dL (1.6-2.6); Potassium 3.8 mmol/L (3.3-5.1); Sodium 140 mmol/L (135-145); Total Protein 6.2 g/dL (6.5-8.0)
[2024-12-17 17:34] LABS: Venous Blood Gas Refer to POC result
[2024-12-17 17:35] LABS: VBG HCO3 13 mmol/L (22-26); VBG O2 % Saturation 56.0 %
[2024-12-17 17:41] LABS: Hematocrit 33.4 % (37.0-47.0); Hemoglobin 10.9 g/dl (12.0-16.0); Imm Gran Abs Auto 0.34 X10*3/uL (0.00-0.03); Imm Gran Pct Auto 2.0 % (0.0-0.4); Lymphocytes Absolute Auto 1.2 X10*3/uL (1.2-4.9); Mean Corpuscular HGB Conc 32.6 g/dl (31.0-35.0); Mean Corpuscular Hemoglobin 29.7 pg (27.0-33.0); Mean Corpuscular Volume 91.0 fL (80.0-98.0); NRBC Abs Auto 0.000 X10*3/uL (0.0-0.012); NRBC Pct Auto 0.0 /100WBC (0.0-0.2); Platelet Count 266 X10*3/uL (160-400); Red Blood Count 3.67 X10*6/uL (4.20-5.50); White Blood Count 16.7 X10*3/uL (4.8-10.8)
[2024-12-17 18:13] LABS: Appearance Urine Clear; Glucose Urine UA >=1000 mg/dL (Negative); PH 6.0 (5.0-9.0); Specific Gravity - Urine 1.025 (1.005-1.025); UMIC TRIGGER UACC YES
[2024-12-17 18:20] LABS: UACC Culture Trigger YES
[2024-12-17 18:25] LABS: Cannabinoid Screen Urine POSITIVE (Not Detect)
--- NOTE | 2024-12-17 18:27 | PC.NURSE ---
BIBHao from home. Patient recently discharge from [facility] on Tuesday. Patient presents with same symptoms of N/V/D. ABD pain rated 10/10 non radiating Patient DM 1 POC 370. Patient believes she is in DKA. IV 20 G in left AC. POC after receiving 10 units and shutting insulin pump off 270 Patient medicated with valium after writhing around in bed, somewhat effect at bedside 3L LR currently running
[2024-12-17 20:53] LABS: Venous Blood Gas Refer to POC result
[2024-12-17 20:53] LABS: VBG HCO3 20 mmol/L (22-26); VBG O2 % Saturation 62.0 %
[2024-12-17 21:05] LABS: Anion Gap 17 (12-20); Blood Urea Nitrogen 19 mg/dL (9-16); Calcium 8.8 mg/dL (8.4-10.2); Carbon Dioxide 21 mmol/L (22-29); Chloride 105 mmol/L (96-108); Creatinine Clr Calc Pharmacy 74.5; Estimated Glomerular Filt Rate > 60; Potassium 4.1 mmol/L (3.3-5.1); Sodium 139 mmol/L (135-145)
--- NOTE | 2024-12-17 23:17 | PM.IMHP ---
History of Present Illness Date of Service: 12/17/24 Attending physician on admission: Sonia Cueto Chief Complaint: N/V Pt is a 69 yo female with PMH IDDM type 1 on insulin pump, HTN, HLD, OA knee, marijuana use via vaping, CTS, SBO 7 years ago, Anxiety, Hypothyroidism presents to the ED for the second time in 48 hours for complaints of N/V/D that have gone unresolved although nursing reports no episodes of vomiting or diarrhea since arrival. This past Tuesday, patient was at a winery and drank a bottle of wine. Patient states she does not usually drink alcohol. Since then patient has not been able to keep anything down and has not been eating well. Pt had removed her insulin pump on arrival noting ketosis but pt not in DKA. MAX glucose 383, CO2 13, AG 22, PH 7.29, Bicarb 13. After fluids, pt's labs have improved greatly, CO2 21, AG 17, PH 7.45, Bicarb 20. UA positive for ketones. Pt is still complaining of nausea with extreme thirst. Toxicology screen positive for marijuana only. Pt experienced severe anxiety and received one dose of valium which provided relief but patient is still not able to lie quietly for long periods of time before she has a sit-up suddenly and then tries to lie down again. Pt does not report any obvious infection and has not used prednisone for noted hx of arthritis (non rheumatoid) recently. Pt does have a leukocytosis but could likely be reactive considering. UA negative for UTI. Urine culture sent in the ED. during ED visit from 12/16/2024 patient had an abdominal pelvic CT done. This scan was negative for any acute findings. There was evidence of common bile duct dilatation of 11 cm but this is considered common after cholecystectomy which patient has had. It is unlikely that patient has hyperemesis cyclical vomiting syndrome related to marijuana use as patient has been trying to cut back on her overall use. Patient denies need for hot showers often or history of withdrawal from marijuana. Patient does follow with an bottom p[employer] regarding her diabetes management. Her last A1c was 7.7 in June 2024. Patient recently obtained a new insulin pump and it has been functioning well as she has a DexBellaDati continuous glucose monitor. Patient's lipase normal and patient denies history of pancreatitis. Patient has lost her brother and sister over the last 3 years to pancreatic cancer. Patient may have some gastritis from recent alcohol use and/or gastroparesis noting she is a type 1 diabetic. EKG normal sinus rhythm with QTC of 444 with no obvious ischemic changes. Patient receiving 1 dose of Reglan and 1 dose of Protonix in the ED. Review of Systems Review of Systems: Patient reporting excessive thirst, mild anxiety, restlessness and is requesting ice chips. Patient denies any chest pain, shortness breath at rest or with exertion, abdominal pain and reports ongoing nausea but no additional vomiting and diarrhea is resolving. Patient denies any open wounds, productive cough, headache or visual changes. 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 Carpal tunnel syndrome Osteoarthritis Hypertension Obesity due to excess calories Hx of small bowel obstruction Carpal tunnel syndrome Depression with anxiety Type 1 diabetes mellitus with hyperglycemia Type 1 diabetes mellitus with diabetic neuropathy Hyperlipidemia LDL goal <100 Hypothyroidism, unspecified Cognitive capacity: Alert and orientated x3 Functional capacity: independent ambulation Patient : No Family History Father CVD (cardiovascular disease) CHF (congestive heart failure) Mother Diabetes mellitus Paternal Grandfather Diabetes mellitus Paternal Grandmother Diabetes mellitus Sister Diabetes mellitus Pancreatic cancer Brother Pancreatic cancer Surgical History History of tooth extraction History of eye surgery Hx of esophagogastroduodenoscopy Hx laparoscopic cholecystectomy Hx of hysterectomy Hx of colonoscopy Social History (Updated 12/18/24 @ 00:04 by MAHIN Schneider) Household Members: Significant Other Housing: House Are you a primary manager wound care to a significant other at home: No Do you presently have visiting nurse or other home services: No Alcohol intake: current Alcohol intake frequency: holidays/special occasions only Alcohol type: wine Patient Tobacco Use Status: Former Tobacco user Smoked in Last 30 Days: No e-Cigarette/Vaping Use: Currently Using Second Hand Smoke Exposure: Yes Use of substances other than those prescribed or required for medical reasons: Yes Substance Use Type: Marijuana Substance Use Frequency: Weekly Advance Directives: No Advance Directives Information Provided: No Do you have a plan to hurt others: No Plan Patient : No service: No Current occupational status: employed Current occupation: [employer] Cognitive needs: No Hearing needs: No Vision needs: Yes (glass) Ebola Risk: Travel/Contact With Anyone From Affected Area/s: No Has Patient Experienced Ebola Symptoms: No Meds Allergies Allergy/AdvReac Type Severity Reaction Status Date / Time No Known Allergies (No Known Allergy Verified 12/17/24 16:35 Allergies*) Active Medications: Current Medications Acetaminophen (Acetaminophen 325 Mg Tablet) 650 mg PO Q6H PRN PRN Reason: Pain, Mild 1-3,fever,headache Albuterol/Ipratropium (Albuterol/Iprat 2.5/0.5mg 3 Ml Ampul.Neb) 3 ml INHALE Q4H PRN PRN Reason: Shortness of Breath/Wheezing Calcium Carbonate (Calcium Carbonate 750 Mg Tab.Chew) 750 mg PO Q4H PRN PRN Reason: Heartburn Enoxaparin Sodium (Enoxaparin Sodium 40 Mg/0.4 Ml Syringe) 40 mg SUBCUT BEDTIME YAN Magnesium Hydroxide (Milk Of Magnesia 30 Ml Oral.Susp) 30 ml PO DAILY PRN PRN Reason: Constipation Melatonin (Melatonin 3 Mg Tablet) 6 mg PO BEDTIME PRN PRN Reason: Insomnia Ondansetron HCl (Ondansetron Hcl 4 Mg/2 Ml Vial) 4 mg IVPUSH Q8H PRN PRN Reason: Nausea and Vomiting Polyethylene Glycol (Polyethylene Glycol 3350 17 Gm Powd.Pack) 17 gm PO DAILY PRN PRN Reason: Constipation Senna (Sennosides 8.6 Mg Tablet) 17.2 mg PO BEDTIME YAN Sodium Chloride (0.9 % Sodium Chloride Flush 3 Ml Syringe) 3 ml IVFLUSH QSHIFT [facility] Home Medications ?Medication ?Instructions ?Recorded ?Confirmed ?Last Taken ?Type multivitamin 1 tab PO DAILY 04/02/20 11/10/23 Unknown History blood-glucose meter (Anil 01/19/22 11/10/23 Unknown History Lite Meter kit) gabapentin 100 mg capsule 100 mg PO BEDTIME 06/18/24 Unknown History gabapentin 300 mg capsule 300 mg PO BEDTIME 06/18/24 Unknown History Physical Exam Vital Signs and Narrative: Vital Signs: Last Vital Signs Temp 98.0 F 12/17/24 22:00 Pulse 96 12/17/24 22:00 Resp 18 12/17/24 22:00 BP 135/55 L 12/17/24 22:00 Pulse Ox 97 12/17/24 22:00 O2 Del Method Room Air 12/17/24 22:00 BMI result Body Mass Index 31.1 Alert and orientated X3, mildly restless, able to provide accurate information for HPI Neuro: CN II-X11 intact, no deficits, visual acuity intact EYES: PERRLA, EOM intact, sclerae nonicteric, conjunctiva pink ENT: hearing intact, no issues with swallowing, uvula midline, lips moist, nares patent no epistaxis Cardiac: S1 S2 RRR, no murmur, no JVD, no edema in Lower ext Pulmonary: lungs clear to auscultation B Abdominal: BS active in all 4 quadrants, no guarding, tenderness, rebounding MSK: strength 5/5 upper and lower extremities : no CVA tenderness no bladder distension Extremities: no edema in lower extremities, PT and DP pulses palpable +2 Psych: mood anxious, judgement and insight good Skin: Intact Results Labs 12/17/24 17:22 12/17/24 20:46 Labs: Laboratory Results - last 24 hr 12/17/24 12/17/24 12/17/24 16:29 17:03 17:21 MCV MCH MCHC RDW Plt Count MPV Immature Gran % (Auto) Neut % (Auto) Lymph % (Auto) [place] % (Auto) Eos % (Auto) Baso % (Auto) Lymph # (Auto) [place] # (Auto) Eos # (Auto) Baso # (Auto) Abs Immat Gran (auto) Absolute Neuts (auto) Absolute Nucleated RBC Nucleated RBC % (auto) VBG pH VBG pCO2 VBG pO2 VBG HCO3 VBG O2 Saturation VBG Base Excess Anion Gap 22 H Estim Creat Clear Calc 67.4 Estimated GFR > 60 POC Glucose 370 H* 286 H Random Glucose 383 H* Calcium 8.9 Magnesium 1.8 Total Bilirubin 0.5 Direct Bilirubin 0.2 AST 58 H ALT 37 H Alkaline Phosphatase 99 Total Protein 6.2 L Albumin 3.8 Lipase 6 L Beta-Hydroxybutyrate 2.29 H Urine Color Urine Appearance Urine pH Ur Specific [place] Urine Protein Urine Glucose (UA) Urine Ketones Urine Blood Urine Nitrite Ur Leukocyte Esterase Urine RBC Urine WBC Ur Squamous Epith Cells Urine Bacteria Hyaline Casts Urine Opiates Screen Ur Buprenorphine Scrn Ur Oxycodone Screen Urine Methadone Screen Urine Fentanyl Screen Ur Barbiturates Screen Ur Phencyclidine Scrn Ur Amphetamines Screen U Benzodiazepines Scrn Urine Cocaine Screen U Marijuana (THC) Screen 12/17/24 12/17/24 12/17/24 17:22 17:28 18:06 MCV 91.0 D MCH 29.7 MCHC 32.6 RDW 13.4 Plt Count 266 MPV 10.9 Immature Gran % (Auto) 2.0 H Neut % (Auto) 87.7 H Lymph % (Auto) 7.4 L [place] % (Auto) 2.6 Eos % (Auto) 0.1 Baso % (Auto) 0.2 Lymph # (Auto) 1.2 [place] # (Auto) 0.4 Eos # (Auto) 0.0 Baso # (Auto) 0.0 Abs Immat Gran (auto) 0.34 H Absolute Neuts (auto) 14.7 H Absolute Nucleated RBC 0.000 Nucleated RBC % (auto) 0.0 VBG pH 7.29 L VBG pCO2 26 VBG pO2 40 VBG HCO3 13 L VBG O2 Saturation 56.0 VBG Base Excess -11.4 Anion Gap Estim Creat Clear Calc Estimated GFR POC Glucose Random Glucose Calcium Magnesium Total Bilirubin Direct Bilirubin AST ALT Alkaline Phosphatase Total Protein Albumin Lipase Beta-Hydroxybutyrate Urine Color Yellow Urine Appearance Clear Urine pH 6.0 Ur Specific [place] 1.025 Urine Protein Trace Urine Glucose (UA) >=1000 H Urine Ketones >=160 Urine Blood Negative Urine Nitrite Negative Ur Leukocyte Esterase Trace H Urine RBC 0-2 Urine WBC 6-10 H Ur Squamous Epith Cells 0-2 Urine Bacteria None Seen Hyaline Casts 0-2 Urine Opiates Screen Not Detected Ur Buprenorphine Scrn Not Detected Ur Oxycodone Screen Not Detected Urine Methadone Screen Not Detected Urine Fentanyl Screen Not Detected Ur Barbiturates Screen Not Detected Ur Phencyclidine Scrn Not Detected Ur Amphetamines Screen Not Detected U Benzodiazepines Scrn Not Detected Urine Cocaine Screen Not Detected U Marijuana (THC) Screen POSITIVE H 12/17/24 12/17/24 20:46 20:50 MCV MCH MCHC RDW Plt Count MPV Immature Gran % (Auto) Neut % (Auto) Lymph % (Auto) [place] % (Auto) Eos % (Auto) Baso % (Auto) Lymph # (Auto) [place] # (Auto) Eos # (Auto) Baso # (Auto) Abs Immat Gran (auto) Absolute Neuts (auto) Absolute Nucleated RBC Nucleated RBC % (auto) VBG pH 7.45 H VBG pCO2 29 VBG pO2 39 VBG HCO3 20 L VBG O2 Saturation 62.0 VBG Base Excess -2.3 Anion Gap 17 Estim Creat Clear Calc 74.5 Estimated GFR > 60 POC Glucose Random Glucose 296 H Calcium 8.8 Magnesium Total Bilirubin Direct Bilirubin AST ALT Alkaline Phosphatase Total Protein Albumin Lipase Beta-Hydroxybutyrate Urine Color Urine Appearance Urine pH Ur Specific [place] Urine Protein Urine Glucose (UA) Urine Ketones Urine Blood Urine Nitrite Ur Leukocyte Esterase Urine RBC Urine WBC Ur Squamous Epith Cells Urine Bacteria Hyaline Casts Urine Opiates Screen Ur Buprenorphine Scrn Ur Oxycodone Screen Urine Methadone Screen Urine Fentanyl Screen Ur Barbiturates Screen Ur Phencyclidine Scrn Ur Amphetamines Screen U Benzodiazepines Scrn Urine Cocaine Screen U Marijuana (THC) Screen ECG Attestation: I personally reviewed and interpreted this ECG as follows: (Normal sinus rhythm) Prior ECG tracings: available for review Assessment and Plan (1) Ketoacidosis: Status: Acute Plan Pt is a 69 yo female with PMH IDDM type 1 on insulin pump, HTN, HLD, OA knee, marijuana use via vaping, CTS, SBO 7 years ago, Anxiety, Hypothyroidism presents to the ED for the second time in 48 hours for complaints of N/V/D that have gone unresolved although nursing reports no episodes of vomiting or diarrhea since arrival. This past Tuesday, patient was at a winery and drank a bottle of wine. Patient states she does not usually drink alcohol. Since then patient has not been able to keep anything down and has not been eating well. Pt had removed her insulin pump on arrival noting ketosis but pt not in DKA. MAX glucose 383, CO2 13, AG 22, PH 7.29, Bicarb 13. After fluids, pt's labs have improved greatly, CO2 21, AG 17, PH 7.45, Bicarb 20. UA positive for ketones. Pt is still complaining of nausea with extreme thirst. Pt experienced severe anxiety and received one dose of valium which provided relief but patient is still not able to lie quietly for long periods of time before she has a sit-up suddenly and then tries to lie down again. Patient being admitted for the following medical problems: Ketoacidosis secondary to poor appetite/ diabetes type 1 on insulin pump Labs have improved with IV fluid, LR @ 125 mls continues BG remains over 250 mg/dL Lantus 15 units HS, sliding scale insulin coverage Patient currently has her insulin pump on hand, but removed insulin pump upon arrival to the ED, also has Dexcom CGM Hemoglobin A1c pending Clear diet permitted as symptoms are improving, advance as tolerated to diabetic diet Lipase normal Leukocytosis No fever UA negative, urine culture was sent from the ED and results pending No indication for chest x-ray as patient has no respiratory symptoms and is not hypoxic Likely reactive No recent prednisone prescribed Gastritis Possibly secondary to alcohol use this past Tuesday while visiting a winery Protonix 40 IV x1 tonight Consider omeprazole for 28 days for discharge Follow-up with PCP if symptoms continue Possible gastroparesis Secondary to diabetes Reglan 10 mg IV x1 Monitor for improvement Diabetic neuropathy Continue gabapentin Recommend Podiatry as an outpatient No current skin or circulation issues with both feet Marijuana use Patient has been cutting down and normally vapes to trace per day No obvious evidence of hyper cyclical emesis syndrome related to marijuana use Capsaicin cream topically ordered in case symptoms persist of N/V Hypertension Continue lisinopril Hyperlipidemia Continue simvastatin Low-fat diet Osteoarthritis Tylenol PRN Meloxicam daily No recent need for prednisone Hypothyroidism Continue levothyroxine Anxiety and depression Continue citalopram Valium p.r.n. DVT prophylaxis: Lovenox Med rec pending Full Code status Quality Stroke Does the patient have a stroke diagnosis?: No Reason for No Anti-thrombotic by Day Two: N/A - Med Ordered VTE Prior VTE?: No VTE Risk Level:: Medical - moderate - high VTE Device Contraindication: N/A - Device Ordered VTE Drug Contraindication: N/A - Med Ordered
[2024-12-17] MEDS: Lactated Ringers 1,000 ML 125 ML IVCONT (23:58)
[2024-12-18] VITALS (7 sets, daily range): BP systolic 119–146; BP diastolic 51–73; PULSE 70–88; RESP 14–20; TEMP 36.2–37.4; O2SAT 90–99; BMI 32.9
[2024-12-18] MEDS: Insulin Glargine,Hum.rec.anlog 100 UNIT/ML 10 ML VIAL 15 UNIT SUBCUT ×2 (00:07→08:04)
[2024-12-18 00:10] LABS: Glucose, Whole Blood 343 mg/dL (60-115)
[2024-12-18 01:45] LABS: Glucose, Whole Blood 419 mg/dL (60-115)
[2024-12-18] MEDS: 0.9 % Sodium Chloride Flush 3 ML SYRINGE IVFLUSH ×2 (02:32→08:05)
[2024-12-18 04:14] LABS: Glucose, Whole Blood 282 mg/dL (60-115)
[2024-12-18 05:16] LABS: Glucose, Whole Blood 281 mg/dL (60-115)
[2024-12-18 06:11] LABS: MANUAL DIFF FLAG NO
[2024-12-18 06:26] LABS: Hematocrit 30.1 % (37.0-47.0); Hemoglobin 10.2 g/dl (12.0-16.0); Imm Gran Abs Auto 0.18 X10*3/uL (0.00-0.03); Imm Gran Pct Auto 1.0 % (0.0-0.4); Lymphocytes Absolute Auto 1.1 X10*3/uL (1.2-4.9); Mean Corpuscular HGB Conc 33.9 g/dl (31.0-35.0); Mean Corpuscular Hemoglobin 30.3 pg (27.0-33.0); Mean Corpuscular Volume 89.3 fL (80.0-98.0); NRBC Abs Auto 0.000 X10*3/uL (0.0-0.012); NRBC Pct Auto 0.0 /100WBC (0.0-0.2); Platelet Count 203 X10*3/uL (160-400); Red Blood Count 3.37 X10*6/uL (4.20-5.50); White Blood Count 18.0 X10*3/uL (4.8-10.8)
[2024-12-18 06:48] LABS: Anion Gap 21 (12-20); Blood Urea Nitrogen 22 mg/dL (9-16); Calcium 8.4 mg/dL (8.4-10.2); Carbon Dioxide 15 mmol/L (22-29); Chloride 103 mmol/L (96-108); Creatinine Clr Calc Pharmacy 69.4; Estimated Glomerular Filt Rate > 60; Potassium 3.5 mmol/L (3.3-5.1); Sodium 135 mmol/L (135-145)
[2024-12-18 07:27] LABS: Glucose, Whole Blood 350 mg/dL (60-115)
[2024-12-18] MEDS: Lactated Ringers 1,000 ML 125 ML IVCONT ×2 (08:04→17:03)
--- NOTE | 2024-12-18 09:19 | PHA.MEDREC ---
Addendum entered by Jose E Jacobo RPh 12/18/24 11:45: MED REC REVIEWED BY [facility]. Original Note: Pharmacy Consult ? Medication Reconciliation Pharmacy has completed the medication reconciliation. Patient was able to confirm her medications. Patient states she is no longer taking Cyclobenzaprine 10 mg, and Prednisone 20 mg. Patient confirmed Insulin Lispro 70 units daily via Medtr[employer] insulin pump. Patient does not have pump on at the moment. Patient states she last had her medications Tuesday.
--- NOTE | 2024-12-18 09:50 | MHC.CM.PN ---
pt lives with her partner she is working and independent has own transportation home when dcd will not need services dc plan home no services
--- NOTE | 2024-12-18 11:04 | HO.PM.IMPN ---
Subjective Subjective Date of Service: 12/18/24 Interval History: ready to try solids Physical Exam Exam: Exam: General: AO X 3, no acute distress Resp: CTA bilateral, no accessory muscles used CVS: S1,S2,RRR GI: soft, non tender, non distended Neuro: motor grossly intact, alert Psych: appropriate affect, appropriate insight Vital Signs: Vital Signs: Last Vital Signs Temp 97.7 F 12/18/24 07:40 Pulse 88 12/18/24 07:40 Resp 16 12/18/24 07:40 BP 119/56 L 12/18/24 07:40 Pulse Ox 95 12/18/24 07:40 O2 Del Method Room Air 12/18/24 07:40 BMI result Body Mass Index 32.9 Objective Data Active Medications Acetaminophen (Acetaminophen 325 Mg Tablet) 650 mg PO Q6H PRN PRN Reason: Pain, Mild 1-3,fever,headache Albuterol/Ipratropium (Albuterol/Iprat 2.5/0.5mg 3 Ml Ampul.Neb) 3 ml INHALE Q4H PRN PRN Reason: Shortness of Breath/Wheezing Calcium Carbonate (Calcium Carbonate 750 Mg Tab.Chew) 750 mg PO Q4H PRN PRN Reason: Heartburn Capsaicin (Capsaicin 0.075% Cream 57 Gm Tube) 1 appl TOPICAL TID PRN; Protocol PRN Reason: Nausea and Vomiting Dextrose (Dextrose 50 % 25 Gm/50 Ml Syringe) 25 gm IVPUSH Q15M PRN; Protocol PRN Reason: per Hypoglycemia Standing Ord. Diazepam (Diazepam 2 Mg Tablet) 2 mg PO TID PRN PRN Reason: Anxiety Enoxaparin Sodium (Enoxaparin Sodium 40 Mg/0.4 Ml Syringe) 40 mg SUBCUT BEDTIME [facility] Last Admin: 12/18/24 00:04 Dose: 40 mg Documented By: BOLIVAR Glucose (Glucose Gel 15 Gm Gel..Gram.) 15 gm PO Q15M PRN; Protocol PRN Reason: per Hypoglycemia Standing Ord. Lactated Ringer's (Lr) 1,000 mls @ 125 mls/hr IVCONT .Q8H [facility] Last Admin: 12/18/24 08:04 Dose: 125 mls/hr Documented By: MED Insulin Glargine (Insulin Glargine,Hum.Rec.Anlog 100 Unit/Ml 10 Ml Vial) 15 unit SUBCUT DAILY [facility] Last Admin: 12/18/24 08:04 Dose: 15 unit Documented By: MED Insulin Human Lispro (Insulin Lispro 100 Unit/Ml 3 Ml Vial) 0 unit SUBCUT QIDACHS [facility]; Protocol Last Admin: 12/18/24 08:04 Dose: 8 unit Documented By: MED Insulin Human Lispro (Insulin Lispro 100 Unit/Ml 3 Ml Vial) 5 unit SUBCUT QIDACHS [facility] Last Admin: 12/18/24 08:04 Dose: 5 unit Documented By: MED Magnesium Hydroxide (Milk Of Magnesia 30 Ml Oral.Susp) 30 ml PO DAILY PRN PRN Reason: Constipation Melatonin (Melatonin 3 Mg Tablet) 6 mg PO BEDTIME PRN PRN Reason: Insomnia Ondansetron HCl (Ondansetron Hcl 4 Mg/2 Ml Vial) 4 mg IVPUSH Q8H PRN PRN Reason: Nausea and Vomiting Polyethylene Glycol (Polyethylene Glycol 3350 17 Gm Powd.Pack) 17 gm PO DAILY PRN PRN Reason: Constipation Senna (Sennosides 8.6 Mg Tablet) 17.2 mg PO BEDTIME [facility] Sodium Chloride (0.9 % Sodium Chloride Flush 3 Ml Syringe) 3 ml IVFLUSH QSHIFT [facility] Last Admin: 12/18/24 08:05 Dose: 3 ml Documented By: MED Labs 12/18/24 05:28 12/18/24 05:28 Labs: Laboratory Results - last 24 hr 12/17/24 12/17/24 12/17/24 16:29 17:03 17:21 MCV MCH MCHC RDW Plt Count MPV Immature Gran % (Auto) Neut % (Auto) Lymph % (Auto) [place] % (Auto) Eos % (Auto) Baso % (Auto) Lymph # (Auto) [place] # (Auto) Eos # (Auto) Baso # (Auto) Abs Immat Gran (auto) Absolute Neuts (auto) Absolute Nucleated RBC Nucleated RBC % (auto) VBG pH VBG pCO2 VBG pO2 VBG HCO3 VBG O2 Saturation VBG Base Excess Anion Gap 22 H Estim Creat Clear Calc 67.4 Estimated GFR > 60 POC Glucose 370 H* 286 H Random Glucose 383 H* Calcium 8.9 Magnesium 1.8 Total Bilirubin 0.5 Direct Bilirubin 0.2 AST 58 H ALT 37 H Alkaline Phosphatase 99 Total Protein 6.2 L Albumin 3.8 Lipase 6 L Beta-Hydroxybutyrate 2.29 H Urine Color Urine Appearance Urine pH Ur Specific [place] Urine Protein Urine Glucose (UA) Urine Ketones Urine Blood Urine Nitrite Ur Leukocyte Esterase Urine RBC Urine WBC Ur Squamous Epith Cells Urine Bacteria Hyaline Casts Urine Opiates Screen Ur Buprenorphine Scrn Ur Oxycodone Screen Urine Methadone Screen Urine Fentanyl Screen Ur Barbiturates Screen Ur Phencyclidine Scrn Ur Amphetamines Screen U Benzodiazepines Scrn Urine Cocaine Screen U Marijuana (THC) Screen 12/17/24 12/17/24 12/17/24 17:22 17:28 18:06 MCV 91.0 D MCH 29.7 MCHC 32.6 RDW 13.4 Plt Count 266 MPV 10.9 Immature Gran % (Auto) 2.0 H Neut % (Auto) 87.7 H Lymph % (Auto) 7.4 L [place] % (Auto) 2.6 Eos % (Auto) 0.1 Baso % (Auto) 0.2 Lymph # (Auto) 1.2 [place] # (Auto) 0.4 Eos # (Auto) 0.0 Baso # (Auto) 0.0 Abs Immat Gran (auto) 0.34 H Absolute Neuts (auto) 14.7 H Absolute Nucleated RBC 0.000 Nucleated RBC % (auto) 0.0 VBG pH 7.29 L VBG pCO2 26 VBG pO2 40 VBG HCO3 13 L VBG O2 Saturation 56.0 VBG Base Excess -11.4 Anion Gap Estim Creat Clear Calc Estimated GFR POC Glucose Random Glucose Calcium Magnesium Total Bilirubin Direct Bilirubin AST ALT Alkaline Phosphatase Total Protein Albumin Lipase Beta-Hydroxybutyrate Urine Color Yellow Urine Appearance Clear Urine pH 6.0 Ur Specific [place] 1.025 Urine Protein Trace Urine Glucose (UA) >=1000 H Urine Ketones >=160 Urine Blood Negative Urine Nitrite Negative Ur Leukocyte Esterase Trace H Urine RBC 0-2 Urine WBC 6-10 H Ur Squamous Epith Cells 0-2 Urine Bacteria None Seen Hyaline Casts 0-2 Urine Opiates Screen Not Detected Ur Buprenorphine Scrn Not Detected Ur Oxycodone Screen Not Detected Urine Methadone Screen Not Detected Urine Fentanyl Screen Not Detected Ur Barbiturates Screen Not Detected Ur Phencyclidine Scrn Not Detected Ur Amphetamines Screen Not Detected U Benzodiazepines Scrn Not Detected Urine Cocaine Screen Not Detected U Marijuana (THC) Screen POSITIVE H 12/17/24 12/17/24 12/18/24 20:46 20:50 00:00 MCV MCH MCHC RDW Plt Count MPV Immature Gran % (Auto) Neut % (Auto) Lymph % (Auto) [place] % (Auto) Eos % (Auto) Baso % (Auto) Lymph # (Auto) [place] # (Auto) Eos # (Auto) Baso # (Auto) Abs Immat Gran (auto) Absolute Neuts (auto) Absolute Nucleated RBC Nucleated RBC % (auto) VBG pH 7.45 H VBG pCO2 29 VBG pO2 39 VBG HCO3 20 L VBG O2 Saturation 62.0 VBG Base Excess -2.3 Anion Gap 17 Estim Creat Clear Calc 74.5 Estimated GFR > 60 POC Glucose 343 H Random Glucose 296 H Calcium 8.8 Magnesium Total Bilirubin Direct Bilirubin AST ALT Alkaline Phosphatase Total Protein Albumin Lipase Beta-Hydroxybutyrate Urine Color Urine Appearance Urine pH Ur Specific [place] Urine Protein Urine Glucose (UA) Urine Ketones Urine Blood Urine Nitrite Ur Leukocyte Esterase Urine RBC Urine WBC Ur Squamous Epith Cells Urine Bacteria Hyaline Casts Urine Opiates Screen Ur Buprenorphine Scrn Ur Oxycodone Screen Urine Methadone Screen Urine Fentanyl Screen Ur Barbiturates Screen Ur Phencyclidine Scrn Ur Amphetamines Screen U Benzodiazepines Scrn Urine Cocaine Screen U Marijuana (THC) Screen 12/18/24 12/18/24 12/18/24 01:38 03:31 05:11 MCV MCH MCHC RDW Plt Count MPV Immature Gran % (Auto) Neut % (Auto) Lymph % (Auto) [place] % (Auto) Eos % (Auto) Baso % (Auto) Lymph # (Auto) [place] # (Auto) Eos # (Auto) Baso # (Auto) Abs Immat Gran (auto) Absolute Neuts (auto) Absolute Nucleated RBC Nucleated RBC % (auto) VBG pH VBG pCO2 VBG pO2 VBG HCO3 VBG O2 Saturation VBG Base Excess Anion Gap Estim Creat Clear Calc Estimated GFR POC Glucose 419 H* 282 H 281 H Random Glucose Calcium Magnesium Total Bilirubin Direct Bilirubin AST ALT Alkaline Phosphatase Total Protein Albumin Lipase Beta-Hydroxybutyrate Urine Color Urine Appearance Urine pH Ur Specific [place] Urine Protein Urine Glucose (UA) Urine Ketones Urine Blood Urine Nitrite Ur Leukocyte Esterase Urine RBC Urine WBC Ur Squamous Epith Cells Urine Bacteria Hyaline Casts Urine Opiates Screen Ur Buprenorphine Scrn Ur Oxycodone Screen Urine Methadone Screen Urine Fentanyl Screen Ur Barbiturates Screen Ur Phencyclidine Scrn Ur Amphetamines Screen U Benzodiazepines Scrn Urine Cocaine Screen U Marijuana (THC) Screen 12/18/24 12/18/24 05:28 07:23 MCV 89.3 MCH 30.3 MCHC 33.9 RDW 13.8 Plt Count 203 MPV 11.1 Immature Gran % (Auto) 1.0 H Neut % (Auto) 86.2 H Lymph % (Auto) 6.3 L [place] % (Auto) 6.4 Eos % (Auto) 0.0 Baso % (Auto) 0.1 Lymph # (Auto) 1.1 L [place] # (Auto) 1.2 Eos # (Auto) 0.0 Baso # (Auto) 0.0 Abs Immat Gran (auto) 0.18 H Absolute Neuts (auto) 15.5 H Absolute Nucleated RBC 0.000 Nucleated RBC % (auto) 0.0 VBG pH VBG pCO2 VBG pO2 VBG HCO3 VBG O2 Saturation VBG Base Excess Anion Gap 21 H Estim Creat Clear Calc 69.4 Estimated GFR > 60 POC Glucose 350 H* Random Glucose 306 H Calcium 8.4 Magnesium Total Bilirubin Direct Bilirubin AST ALT Alkaline Phosphatase Total Protein Albumin Lipase Beta-Hydroxybutyrate Urine Color Urine Appearance Urine pH Ur Specific [place] Urine Protein Urine Glucose (UA) Urine Ketones Urine Blood Urine Nitrite Ur Leukocyte Esterase Urine RBC Urine WBC Ur Squamous Epith Cells Urine Bacteria Hyaline Casts Urine Opiates Screen Ur Buprenorphine Scrn Ur Oxycodone Screen Urine Methadone Screen Urine Fentanyl Screen Ur Barbiturates Screen Ur Phencyclidine Scrn Ur Amphetamines Screen U Benzodiazepines Scrn Urine Cocaine Screen U Marijuana (THC) Screen Microbiology Microbiology Results: Microbiology 12/17/24 Unknown Urine Culture - Preliminary Urine clean catch - Clean Catch Midstream Culture too young to evaluate. Assessment and Plan (1) Type 1 diabetes mellitus with hyperglycemia: Status: Acute Plan 69F PMH type 1 diabetes with insulin pump, hypertension, hyperlipidemia, osteoarthritis, cyclic vomiting, hypothyroid, anxiety presented with nausea and vomiting found to have mild DKA Cyclic vomiting, mild DKA in type 1 diabetes Appetite improving, we will advanced solid, continue basal bolus insulin monitor BMP Hypothyroid Continue levothyroxine Mood disorder Continue citalopram DVT prophylaxis with Lovenox Full Code reason for continued hospitalization: Monitoring for toleration of diet and resolution of anion gap Quality Stroke Does the patient have a stroke diagnosis?: No Reason for No Anti-thrombotic by Day Two: N/A - Med Ordered VTE Prior VTE?: No VTE Risk Level:: Medical - moderate - high VTE Device Contraindication: N/A - Device Ordered VTE Drug Contraindication: N/A - Med Ordered
[2024-12-18 11:23] LABS: Glucose, Whole Blood 246 mg/dL (60-115)
[2024-12-18 16:15] LABS: Glucose, Whole Blood 39 mg/dL (60-115)
[2024-12-18 16:15] LABS: Glucose, Whole Blood 155 mg/dL (60-115)
[2024-12-18 17:27] LABS: Anion Gap 14 (12-20); Blood Urea Nitrogen 19 mg/dL (9-16); Calcium 8.6 mg/dL (8.4-10.2); Carbon Dioxide 21 mmol/L (22-29); Chloride 108 mmol/L (96-108); Creatinine Clr Calc Pharmacy 69.4; Estimated Glomerular Filt Rate > 60; Potassium 2.9 mmol/L (3.3-5.1); Sodium 140 mmol/L (135-145)
[2024-12-18] MEDS: Potassium Chloride ER 20 MEQ TAB.ER.PRT 40 MEQ PO (17:51)
[2024-12-18 20:43] LABS: Glucose, Whole Blood 164 mg/dL (60-115)
[2024-12-19] VITALS (8 sets, daily range): BP systolic 131–169; BP diastolic 60–84; PULSE 63–79; RESP 14–18; TEMP 36.1–37.9; O2SAT 92–95
[2024-12-19] MEDS: Lactated Ringers 1,000 ML 125 ML IVCONT ×2 (00:53→09:22)
[2024-12-19 06:31] LABS: Hematocrit 30.1 % (37.0-47.0); Hemoglobin 10.3 g/dl (12.0-16.0); Mean Corpuscular HGB Conc 34.2 g/dl (31.0-35.0); Mean Corpuscular Hemoglobin 29.9 pg (27.0-33.0); Mean Corpuscular Volume 87.2 fL (80.0-98.0); NRBC Abs Auto 0.000 X10*3/uL (0.0-0.012); NRBC Pct Auto 0.0 /100WBC (0.0-0.2); Platelet Count 200 X10*3/uL (160-400); Red Blood Count 3.45 X10*6/uL (4.20-5.50); White Blood Count 13.0 X10*3/uL (4.8-10.8)
[2024-12-19 07:03] LABS: Anion Gap 13 (12-20); Blood Urea Nitrogen 15 mg/dL (9-16); Calcium 8.9 mg/dL (8.4-10.2); Carbon Dioxide 25 mmol/L (22-29); Chloride 109 mmol/L (96-108); Creatinine Clr Calc Pharmacy 66.2; Estimated Glomerular Filt Rate > 60; Potassium 3.9 mmol/L (3.3-5.1); Sodium 143 mmol/L (135-145)
[2024-12-19 07:56] LABS: Glucose, Whole Blood 102 mg/dL (60-115)
[2024-12-19] MEDS: Insulin Glargine,Hum.rec.anlog 100 UNIT/ML 10 ML VIAL 15 UNIT SUBCUT (10:27)
[2024-12-19 11:09] LABS: Glucose, Whole Blood 220 mg/dL (60-115)
[2024-12-19 12:17] LABS: Glucose, Whole Blood 287 mg/dL (60-115)
--- NOTE | 2024-12-19 12:56 | HO.PM.IMPN ---
Subjective Subjective Date of Service: 12/19/24 Interval History: Still feeling weak and nauseous this a.m.. No acute issues overnight Review of Systems Denies chest pain Denies shortness of breath Denies nausea vomiting diarrhea Denies fever chills Physical Exam Vital Signs: Vital Signs: Last Vital Signs Temp 97.1 F 12/19/24 11:27 Pulse 64 12/19/24 11:27 Resp 16 12/19/24 11:27 BP 144/70 H 12/19/24 11:27 Pulse Ox 94 12/19/24 11:27 O2 Del Method Room Air 12/19/24 11:27 BMI result Body Mass Index 32.9 Const: Other: Awake alert no acute distress Resp: Other: Clear to auscultation bilaterally no rales rhonchi or wheezes Cardio: Other: No S4; positive S1-S2; no S3 murmurs rubs or gallops GI: Other: Soft nontender nondistended normoactive bowel sounds Extrem: Other: No edema bilaterally Objective Data Active Medications Acetaminophen (Acetaminophen 325 Mg Tablet) 650 mg PO Q6H PRN PRN Reason: Pain, Mild 1-3,fever,headache Last Admin: 12/18/24 21:27 Dose: 650 mg Documented By: SAPPHIRE Albuterol/Ipratropium (Albuterol/Iprat 2.5/0.5mg 3 Ml Ampul.Neb) 3 ml INHALE Q4H PRN PRN Reason: Shortness of Breath/Wheezing Atorvastatin Calcium (Atorvastatin Calcium 10 Mg Tablet) 10 mg PO BEDTIME [facility] Last Admin: 12/18/24 21:17 Dose: 10 mg Documented By: SAPPHIRE Calcium Carbonate (Calcium Carbonate 750 Mg Tab.Chew) 750 mg PO Q4H PRN PRN Reason: Heartburn Capsaicin (Capsaicin 0.075% Cream 57 Gm Tube) 1 appl TOPICAL TID PRN; Protocol PRN Reason: Nausea and Vomiting Dextrose (Dextrose 50 % 25 Gm/50 Ml Syringe) 25 gm IVPUSH Q15M PRN; Protocol PRN Reason: per Hypoglycemia Standing Ord. Last Admin: 12/18/24 15:49 Dose: 25 gm Documented By: MED Diazepam (Diazepam 2 Mg Tablet) 2 mg PO TID PRN PRN Reason: Anxiety Enoxaparin Sodium (Enoxaparin Sodium 40 Mg/0.4 Ml Syringe) 40 mg SUBCUT BEDTIME [facility] Last Admin: 12/18/24 21:16 Dose: 40 mg Documented By: SAPPHIRE Escitalopram Oxalate (Escitalopram Oxalate 20 Mg Tablet) 20 mg PO DAILY [facility] Last Admin: 12/19/24 07:41 Dose: 20 mg Documented By: TJ Gabapentin (Gabapentin 300 Mg Capsule) 600 mg PO BEDTIME [facility] Last Admin: 12/18/24 21:27 Dose: 600 mg Documented By: SAPPHIRE Glucose (Glucose Gel 15 Gm Gel..Gram.) 15 gm PO Q15M PRN; Protocol PRN Reason: per Hypoglycemia Standing Ord. Lactated Ringer's (Lr) 1,000 mls @ 125 mls/hr IVCONT .Q8H [facility] Last Admin: 12/19/24 09:22 Dose: 125 mls/hr Documented By: TJ Insulin Glargine (Insulin Glargine,Hum.Rec.Anlog 100 Unit/Ml 10 Ml Vial) 15 unit SUBCUT DAILY [facility] Last Admin: 12/19/24 10:27 Dose: 10 unit Documented By: TJ Comments: per Dr Bishop Insulin Human Lispro (Insulin Lispro 100 Unit/Ml 3 Ml Vial) 0 unit SUBCUT QIDACHS [facility]; Protocol Last Admin: 12/19/24 12:11 Dose: 4 unit Documented By: TJ Insulin Human Lispro (Insulin Lispro 100 Unit/Ml 3 Ml Vial) 5 unit SUBCUT QIDACHS [facility] Last Admin: 12/19/24 12:12 Dose: 5 unit Documented By: TJ Levothyroxine Sodium (Levothyroxine Sodium 100 Mcg Tablet) 100 mcg PO DAILY@0600 [facility] Last Admin: 12/19/24 05:51 Dose: 100 mcg Documented By: SAPPHIRE Lisinopril (Lisinopril 10 Mg Tablet) 10 mg PO DAILY [facility]; Protocol Last Admin: 12/19/24 07:50 Dose: 10 mg Documented By: TJ Magnesium Hydroxide (Milk Of Magnesia 30 Ml Oral.Susp) 30 ml PO DAILY PRN PRN Reason: Constipation Melatonin (Melatonin 3 Mg Tablet) 6 mg PO BEDTIME PRN PRN Reason: Insomnia Multivitamins/Vitamin C (Multivitamin Tablet) 1 tab PO DAILY [facility] Last Admin: 12/19/24 07:41 Dose: 1 tab Documented By: TJ Ondansetron HCl (Ondansetron Hcl 4 Mg/2 Ml Vial) 4 mg IVPUSH Q8H PRN PRN Reason: Nausea and Vomiting Last Admin: 12/19/24 07:50 Dose: 4 mg Documented By: TJ Polyethylene Glycol (Polyethylene Glycol 3350 17 Gm Powd.Pack) 17 gm PO DAILY PRN PRN Reason: Constipation Senna (Sennosides 8.6 Mg Tablet) 17.2 mg PO BEDTIME [facility] Last Admin: 12/18/24 21:17 Dose: 17.2 mg Documented By: SAPPHIRE Sodium Chloride (0.9 % Sodium Chloride Flush 3 Ml Syringe) 3 ml IVFLUSH QSHIFT [facility] Last Admin: 12/19/24 07:42 Dose: Not Given Documented By: TJ Non-Admin Reason: IV Running Labs 12/19/24 06:14 12/19/24 06:14 Labs: Laboratory Results - last 24 hr 12/18/24 12/18/24 12/18/24 15:44 16:11 16:35 MCV MCH MCHC RDW Plt Count MPV Absolute Nucleated RBC Nucleated RBC % (auto) Hold Purple Top SEE NOTE Anion Gap 14 Estim Creat Clear Calc 69.4 Estimated GFR > 60 POC Glucose 39 L* 155 H Random Glucose 134 H Calcium 8.6 12/18/24 12/19/24 12/19/24 20:34 06:14 07:49 MCV 87.2 MCH 29.9 MCHC 34.2 RDW 14.0 Plt Count 200 MPV 10.0 Absolute Nucleated RBC 0.000 Nucleated RBC % (auto) 0.0 Hold Purple Top Anion Gap 13 Estim Creat Clear Calc 66.2 Estimated GFR > 60 POC Glucose 164 H 102 Random Glucose 90 Calcium 8.9 12/19/24 12/19/24 11:04 12:10 MCV MCH MCHC RDW Plt Count MPV Absolute Nucleated RBC Nucleated RBC % (auto) Hold Purple Top Anion Gap Estim Creat Clear Calc Estimated GFR POC Glucose 220 H 287 H Random Glucose Calcium Microbiology Microbiology Results: Microbiology 12/17/24 Unknown Urine Culture - Final Urine clean catch - Clean Catch Midstream Assessment and Plan (1) Type 1 diabetes mellitus with diabetic neuropathy: Status: Acute (2) Hypertension: Status: Acute Plan 69F PMH type 1 diabetes with insulin pump, hypertension, hyperlipidemia, osteoarthritis, cyclic vomiting, hypothyroid, anxiety presented with nausea and vomiting found to have mild DKA 1.Mild DKA in type 1 diabetes -acceptable control on current dosing; vomiting improved -basal insulin along with lispro correctional scale -resume pump upon discharge 2.Hypothyroid -stable on current therapies 3.Mood disorder -stable and well compensated -continue current therapies Lovenox Full Code Monitoring for toleration of diet and resolution of anion gap Quality Stroke Does the patient have a stroke diagnosis?: No Reason for No Anti-thrombotic by Day Two: N/A - Med Ordered VTE Prior VTE?: No VTE Risk Level:: Medical - moderate - high VTE Device Contraindication: N/A - Device Ordered VTE Drug Contraindication: N/A - Med Ordered
--- NOTE | 2024-12-19 13:01 | MHC.CM.PN ---
per rounds pt not medically ready for dc plan remains home n/s
[2024-12-19 14:00] LABS: Glucose, Whole Blood 191 mg/dL (60-115)
--- NOTE | 2024-12-19 15:04 | PC.NURSE ---
Addendum entered by Michelle Soares RN 12/19/24 19:24: Pt denied any further anxiety throughout the rest of shift Original Note: Pt states she is having some jitters and is becoming anxious. Concerned her blood sugar is low. POC 191. administered po valium per her request. Will monitor
[2024-12-19 16:25] LABS: Glucose, Whole Blood 92 mg/dL (60-115)
[2024-12-19 20:50] LABS: Glucose, Whole Blood 149 mg/dL (60-115)
[2024-12-20] VITALS (7 sets, daily range): BP systolic 135–162; BP diastolic 64–77; PULSE 63–74; RESP 16–18; TEMP 36.2–37.1; O2SAT 93–99
[2024-12-20 06:08] LABS: MANUAL DIFF FLAG NO
[2024-12-20 06:19] LABS: Hematocrit 29.0 % (37.0-47.0); Hemoglobin 9.6 g/dl (12.0-16.0); Imm Gran Abs Auto 0.02 X10*3/uL (0.00-0.03); Imm Gran Pct Auto 0.3 % (0.0-0.4); Lymphocytes Absolute Auto 1.4 X10*3/uL (1.2-4.9); Mean Corpuscular HGB Conc 33.1 g/dl (31.0-35.0); Mean Corpuscular Hemoglobin 29.3 pg (27.0-33.0); Mean Corpuscular Volume 88.4 fL (80.0-98.0); NRBC Abs Auto 0.000 X10*3/uL (0.0-0.012); NRBC Pct Auto 0.0 /100WBC (0.0-0.2); Platelet Count 157 X10*3/uL (160-400); Red Blood Count 3.28 X10*6/uL (4.20-5.50); White Blood Count 6.7 X10*3/uL (4.8-10.8)
[2024-12-20 06:42] LABS: Alanine Aminotransferase 101 U/L (0-31); Albumin Level 3.3 g/dL (3.5-5.0); Alkaline Phosphatase 91 U/L (39-117); Anion Gap 9 (12-20); Aspartate Amino Transferase 167 U/L (5-31); Blood Urea Nitrogen 8 mg/dL (9-16); Calcium 8.5 mg/dL (8.4-10.2); Carbon Dioxide 29 mmol/L (22-29); Chloride 108 mmol/L (96-108); Creatinine Clr Calc Pharmacy 79.8; Estimated Glomerular Filt Rate > 60; Potassium 3.3 mmol/L (3.3-5.1); Sodium 143 mmol/L (135-145); Total Protein 5.3 g/dL (6.5-8.0)
[2024-12-20 07:36] LABS: Glucose, Whole Blood 146 mg/dL (60-115)
[2024-12-20] MEDS: Insulin Glargine,Hum.rec.anlog 100 UNIT/ML 10 ML VIAL 15 UNIT SUBCUT (09:30)
[2024-12-20] MEDS: 0.9 % Sodium Chloride Flush 3 ML SYRINGE IVFLUSH ×2 (09:31→17:27)
[2024-12-20 11:25] LABS: Glucose, Whole Blood 248 mg/dL (60-115)
--- NOTE | 2024-12-20 15:00 | HO.PM.IMPN ---
Subjective Subjective Date of Service: 12/20/24 Interval History: Nausea and vomiting improved however LFTs elevated this a.m. Review of Systems Denies chest pain Denies shortness of breath Denies nausea vomiting diarrhea Denies fever chills Physical Exam Vital Signs: Vital Signs: Last Vital Signs Temp 98.7 F 12/20/24 07:51 Pulse 64 12/20/24 12:00 Resp 18 12/20/24 12:00 BP 135/64 12/20/24 12:00 Pulse Ox 93 12/20/24 12:00 O2 Del Method Room Air 12/20/24 12:00 BMI result Body Mass Index 32.9 Const: Other: Awake alert no acute distress Resp: Other: Clear to auscultation bilaterally no rales rhonchi or wheezes Cardio: Other: No S4; positive S1-S2; no S3 murmurs rubs or gallops GI: Other: Soft nontender nondistended normoactive bowel sounds Extrem: Other: No edema bilaterally Objective Data Active Medications Acetaminophen (Acetaminophen 325 Mg Tablet) 650 mg PO Q6H PRN PRN Reason: Pain, Mild 1-3,fever,headache Last Admin: 12/19/24 21:04 Dose: 650 mg Documented By: VERO Albuterol/Ipratropium (Albuterol/Iprat 2.5/0.5mg 3 Ml Ampul.Neb) 3 ml INHALE Q4H PRN PRN Reason: Shortness of Breath/Wheezing Calcium Carbonate (Calcium Carbonate 750 Mg Tab.Chew) 750 mg PO Q4H PRN PRN Reason: Heartburn Capsaicin (Capsaicin 0.075% Cream 57 Gm Tube) 1 appl TOPICAL TID PRN; Protocol PRN Reason: Nausea and Vomiting Dextrose (Dextrose 50 % 25 Gm/50 Ml Syringe) 25 gm IVPUSH Q15M PRN; Protocol PRN Reason: per Hypoglycemia Standing Ord. Last Admin: 12/18/24 15:49 Dose: 25 gm Documented By: MED Diazepam (Diazepam 2 Mg Tablet) 2 mg PO TID PRN PRN Reason: Anxiety Last Admin: 12/19/24 13:40 Dose: 2 mg Documented By: TJ Enoxaparin Sodium (Enoxaparin Sodium 40 Mg/0.4 Ml Syringe) 40 mg SUBCUT BEDTIME [facility] Last Admin: 12/19/24 20:58 Dose: 40 mg Documented By: VERO Escitalopram Oxalate (Escitalopram Oxalate 20 Mg Tablet) 20 mg PO DAILY [facility] Last Admin: 12/20/24 09:32 Dose: 20 mg Documented By: BALAJI Gabapentin (Gabapentin 300 Mg Capsule) 600 mg PO BEDTIME [facility] Last Admin: 12/19/24 20:58 Dose: 600 mg Documented By: VERO Glucose (Glucose Gel 15 Gm Gel..Gram.) 15 gm PO Q15M PRN; Protocol PRN Reason: per Hypoglycemia Standing Ord. Insulin Glargine (Insulin Glargine,Hum.Rec.Anlog 100 Unit/Ml 10 Ml Vial) 15 unit SUBCUT DAILY [facility] Last Admin: 12/20/24 09:30 Dose: 15 unit Documented By: BALAJI Insulin Human Lispro (Insulin Lispro 100 Unit/Ml 3 Ml Vial) 0 unit SUBCUT QIDACHS [facility]; Protocol Last Admin: 12/20/24 13:43 Dose: Not Given Documented By: BALAJI Non-Admin Reason: NPO Insulin Human Lispro (Insulin Lispro 100 Unit/Ml 3 Ml Vial) 5 unit SUBCUT QIDACHS [facility] Last Admin: 12/20/24 13:44 Dose: Not Given Documented By: BALAJI Non-Admin Reason: NPO Levothyroxine Sodium (Levothyroxine Sodium 100 Mcg Tablet) 100 mcg PO DAILY@0600 [facility] Last Admin: 12/20/24 05:59 Dose: 100 mcg Documented By: GINNY Lisinopril (Lisinopril 10 Mg Tablet) 10 mg PO DAILY [facility]; Protocol Last Admin: 12/20/24 09:32 Dose: 10 mg Documented By: BALAJI Magnesium Hydroxide (Milk Of Magnesia 30 Ml Oral.Susp) 30 ml PO DAILY PRN PRN Reason: Constipation Melatonin (Melatonin 3 Mg Tablet) 6 mg PO BEDTIME PRN PRN Reason: Insomnia Multivitamins/Vitamin C (Multivitamin Tablet) 1 tab PO DAILY [facility] Last Admin: 12/20/24 09:32 Dose: 1 tab Documented By: BALAJI Ondansetron HCl (Ondansetron Hcl 4 Mg/2 Ml Vial) 4 mg IVPUSH Q8H PRN PRN Reason: Nausea and Vomiting Last Admin: 12/19/24 07:50 Dose: 4 mg Documented By: TJ Polyethylene Glycol (Polyethylene Glycol 3350 17 Gm Powd.Pack) 17 gm PO DAILY PRN PRN Reason: Constipation Senna (Sennosides 8.6 Mg Tablet) 17.2 mg PO BEDTIME [facility] Last Admin: 12/19/24 20:58 Dose: 17.2 mg Documented By: VERO Sodium Chloride (0.9 % Sodium Chloride Flush 3 Ml Syringe) 3 ml IVFLUSH QSHIFT [facility] Last Admin: 12/20/24 09:31 Dose: 3 ml Documented By: DOBROB Labs 12/20/24 05:46 12/20/24 05:46 Labs: Laboratory Results - last 24 hr 12/19/24 12/19/24 12/20/24 16:21 20:37 05:46 MCV 88.4 MCH 29.3 MCHC 33.1 RDW 13.3 Plt Count 157 L MPV 10.6 Immature Gran % (Auto) 0.3 Neut % (Auto) 71.3 Lymph % (Auto) 21.0 [place] % (Auto) 4.3 Eos % (Auto) 2.8 Baso % (Auto) 0.3 Lymph # (Auto) 1.4 [place] # (Auto) 0.3 Eos # (Auto) 0.2 Baso # (Auto) 0.0 Abs Immat Gran (auto) 0.02 Absolute Neuts (auto) 4.8 Absolute Nucleated RBC 0.000 Nucleated RBC % (auto) 0.0 Anion Gap 9 L Estim Creat Clear Calc 79.8 Estimated GFR > 60 POC Glucose 92 149 H Fasting Glucose 126 H Calcium 8.5 Total Bilirubin 0.6 AST 167 H ALT 101 H Alkaline Phosphatase 91 Total Protein 5.3 L Albumin 3.3 L 12/20/24 12/20/24 07:29 11:13 MCV MCH MCHC RDW Plt Count MPV Immature Gran % (Auto) Neut % (Auto) Lymph % (Auto) [place] % (Auto) Eos % (Auto) Baso % (Auto) Lymph # (Auto) [place] # (Auto) Eos # (Auto) Baso # (Auto) Abs Immat Gran (auto) Absolute Neuts (auto) Absolute Nucleated RBC Nucleated RBC % (auto) Anion Gap Estim Creat Clear Calc Estimated GFR POC Glucose 146 H 248 H Fasting Glucose Calcium Total Bilirubin AST ALT Alkaline Phosphatase Total Protein Albumin Assessment and Plan (1) Abnormal LFTs: Status: Acute (2) Type 1 diabetes mellitus with hyperglycemia: Status: Acute Plan 69F PMH type 1 diabetes with insulin pump, hypertension, hyperlipidemia, osteoarthritis, cyclic vomiting, hypothyroid, anxiety presented with nausea and vomiting found to have mild DKA 1. Abnormal LFTs -limited ultrasound ordered -await GI input 2..Mild DKA in type 1 diabetes -acceptable control on current dosing; vomiting improved -basal insulin along with lispro correctional scale -resume pump upon discharge 3..Hypothyroid -stable on current therapies 4..Mood disorder -stable and well compensated -continue current therapies Lovenox Full Code Monitoring for toleration of diet and resolution of anion gap Quality Stroke Does the patient have a stroke diagnosis?: No Reason for No Anti-thrombotic by Day Two: N/A - Med Ordered VTE Prior VTE?: No VTE Risk Level:: Medical - moderate - high VTE Device Contraindication: N/A - Device Ordered VTE Drug Contraindication: N/A - Med Ordered
--- NOTE | 2024-12-20 15:47 | PM.EVENT ---
Event Note Date of Service: 12/20/24 Event Note: GI Consult-Full note dictated-History from patient, significant other at the bedside, and the EMR Imp: I suspect she has baseline fatty liver in relation to weight, IDDM, and hyperlipidemia, and now some worsening of the LFT's from her acute illness with what sounds like a gastroenteritis and some EtOH intake at a winery shortly before the admission. I don't think this represents biliary disease based on the clinical history, imaging studies, and the normal TBili and Alk phos. She presently appears stable from a GI and liver standpoint. Rec: Supportive care, avoid EtOH, maximize control of the IDDM, watch diet, lose weight, monitor LFT's as an outpatient and obtain a referral to [facility] from PCP if the LFT's do not improve or if they worsen again. I will order a liver workup for her while she is here. D/W patient and significant other in detail. They are comfortable with this plan. Thanks Time Spent With Patient Time: Total time managing care of this patient today ____ minutes.
[2024-12-20 16:26] LABS: Glucose, Whole Blood 189 mg/dL (60-115)
--- NOTE | 2024-12-20 16:50 | P.CDIM_ITS ---
PROVIDER RESPONSE TEXT: To clarify, the appropriate diagnosis supported by the clinical indicators: Hypokalemia QUERY TEXT: PHYSICIAN'S DOCUMENTATION REQUEST Date of Query: 12/19/2024 01:10 PM EDT Patient Name: Amy Jay Admit Date: 12/18/2024 Dear Arik Bishop DO, A review of the medical record indicates additional documentation may be needed. Please review below and update the documentation accordingly. Clinical Indicators: LABS: Potassium 2.9 L Klor-con Based on the above, is there a diagnosis that correlates with these findings? Hypokalemia Labs indicate a diagnosis of (please specify) Other (explain) Clinically unable to determine (explain) Thank you, Tami Alvarez, CCS, CDIS Use of terms such as suspected, likely, concern for, or probable (associated with a specific diagnosis that is being evaluated, monitored, or treated as if it exists) are acceptable and can be coded in the inpatient setting, when documented at the time of discharge. Please use your independent medical judgment in providing your response. THIS QUERY IS PART OF THE PERMANENT MEDICAL RECORD
[2024-12-20 20:38] LABS: Glucose, Whole Blood 176 mg/dL (60-115)
[2024-12-20 23:00] LABS: Glucose, Whole Blood 43 mg/dL (60-115)
[2024-12-20] MEDS: Glucose Gel 15 GM GEL..GRAM. PO (23:06)
[2024-12-20 23:32] LABS: Glucose, Whole Blood 76 mg/dL (60-115)
[2024-12-20 23:52] LABS: Glucose, Whole Blood 84 mg/dL (60-115)
--- NOTE | 2024-12-21 00:01 | PC.NURSE ---
Patient had called me into her room because she wasn't feeling good & said I feel like I am experiencing low blood sugar can you check . Her sugar was 43 when I checked. I notified Dr. Cueto. Gave patient only 1 tube of glucose gel since patient didn't like the taste and then gave apple juice. Sugar has since gone up to 84 and patient says she feels better.
--- NOTE | 2024-12-21 03:20 | CONS_ITS ---
DATE OF SERVICE: 12/20/2024 REASON FOR CONSULTATION: Elevated LFTs. HISTORY OF PRESENT ILLNESS: This has been obtained from the patient, her significant other at the bedside, and the medical record. The patient is a 69-year-old female admitted to the hospital with DKA in relation to her insulin-dependent diabetes mellitus. In reviewing the record, she has had a longstanding history of slight elevation of her liver enzymes dating back to at least 2017. Over the years have been relatively minimally elevated with the highest level being 35 in May. She denies any known history of liver disease in herself or family members. She denies any significant alcohol use. She describes that she was well up until December 15 when she developed the relatively acute onset of vomiting and diarrhea. She does describe that she had been out to a winery the evening before and having consumed some wine. She also ate out in a restaurant. However, she denies that anyone else became ill, and also denies any ill contacts in general, travel, nor antibiotic use. Due to the persistence of her GI symptoms and not feeling well, she came to the ER and was admitted. Her initial AST was 77, which decreased to 58 on December 17, but now is 167 as of this morning. Her ALT was elevated up to 101, but her total bilirubin and alkaline phosphatase have been normal. She has never had any history of jaundice. Again, she denies any history of liver disease in herself or family members. CT of the abdomen on December 16 describes some intrahepatic biliary dilatation with the common duct of 11 mm, although she is status post cholecystectomy. There is no description of any particular liver disease. Abdominal ultrasound back in June described a normal-appearing liver and no intrahepatic bile duct dilatation and a common duct of 7.5 mm at that time. There was no evidence of any choledocholithiasis. The patient has been having some mild generalized discomfort in relation to the vomiting, diarrhea, but denies any localizing abdominal pain to the right side of the abdomen. She has not noticed any jaundice. She has been feeling better in general since admission and has been tolerating some diet. MEDICATIONS: Tums, Lovenox, Valium p.r.n., Lexapro, Neurontin, insulin, levothyroxine, lisinopril, Zofran p.r.n., MiraLAX p.r.n., Senokot p.r.n. She was on meloxicam and simvastatin at home. PAST MEDICAL HISTORY: Insulin-dependent diabetes mellitus. She denies any history of CT, stroke, lung disease, nor kidney disease. Normal upper endoscopy in 2019 with a minimal hiatal hernia. Normal duodenal and gastric biopsies. She had a negative colonoscopy at age 52 while living in [place] and describes another colonoscopy more recently, which she thinks was negative. SURGERIES: Include hysterectomy and cholecystectomy. FAMILY HISTORY: Notable for 2 siblings with pancreatic cancer, but no family history of liver disease nor colorectal cancer. SOCIAL HISTORY: She is an administrative office specialist. She does not smoke. She drinks occasional alcohol. REVIEW OF SYSTEMS: CONSTITUTIONAL: Up until becoming ill, she had been feeling well with good energy, good appetite. SKIN: No rash, no pruritus. CARDIAC: No chest pain. PULMONARY: No coughing, no hemoptysis. GI: As above. She denies any hematochezia nor melena. She denies any hematemesis, nor coffee-ground emesis. She denies any dysphagia, nor anorexia. URINARY: No dysuria, no hematuria. NEUROLOGIC: No headache or seizures. PHYSICAL EXAMINATION: GENERAL: On exam, she is a pleasant, alert female. SKIN: Warm and dry. : There is no evidence of bladder angiomata. HEENT: Anicteric sclerae. NECK: Supple. ABDOMEN: Soft, nondistended, nontender without palpable organomegaly or mass. EXTREMITIES: Without palmar erythema. LABORATORY DATA: As above. White blood cell count 6.7, hemoglobin 9.6, MCV 88, platelets 157,000. LFTs today show total bilirubin of 0.6, AST 167, ALT 101, alkaline phosphatase 91, albumin 3.3. PT 11.4 with INR 1.0. Toxicology screen on admission was positive for marijuana and negative for alcohol. CT scan and ultrasound as described above. IMPRESSION: Given the patient's clinical history, it does appear that she probably has some baseline fatty liver with very mild elevation of the LFTs over the past number of years. This would be most likely in relation to her diabetes and some relative obesity. I do not think she has any sign of liver dysfunction based on her laboratories and exam. I suspect the increase in her LFTs is related to her acute illness as well as her diabetes with higher than usual blood sugars. I do not think this represents biliary disease given the lack of any significant pain, her imaging studies, and the normal total bilirubin and alkaline phosphatase. She does have some hyperlipidemia and is on a chronic statin, which could be contributing to the elevated LFTs as well. At this point, I would recommend simply observation and continue supportive care. I have ordered laboratories for a complete liver workup for the morning, although I suspect that will be negative. I would have her avoid alcohol, maximize control of the diabetes, watch her diet, and attempt to lose weight. I did advise that she should follow up with her primary care provider in regard to monitoring the LFTs and be referred to see me if the LFTs do not improve or certainly if they worsen again. In regard to her anemia, we will order the iron profile as part of the liver workup. I will also order a B12 and folate level as well given the normal MCV. This has been discussed in detail with the patient and her significant other in detail. They are both comfortable with the plan. Thanks for the consultation. MD CRISTIAN Colvin/KIKI / [phone] MTDLarry
[2024-12-21 03:30] VITALS: BP 134/65; PULSE 60; RESP 17; TEMP 36.3; O2SAT 95
[2024-12-21 07:18] LABS: Alanine Aminotransferase 162 U/L (0-31); Albumin Level 3.7 g/dL (3.5-5.0); Alkaline Phosphatase 108 U/L (39-117); Anion Gap 11 (12-20); Aspartate Amino Transferase 158 U/L (5-31); Blood Urea Nitrogen 5 mg/dL (9-16); Calcium 8.9 mg/dL (8.4-10.2); Carbon Dioxide 30 mmol/L (22-29); Chloride 106 mmol/L (96-108); Creatinine Clr Calc Pharmacy 88.2; Estimated Glomerular Filt Rate > 60; Iron 22 mcg/dL (30-160); Percent Iron Saturation 11 % (15-50); Potassium 3.4 mmol/L (3.3-5.1); Sodium 144 mmol/L (135-145); Total Iron Binding Capacity 208 mcg/dL (228-428); Total Protein 6.0 g/dL (6.5-8.0); Unsaturated Iron Binding 186 ug/dL
[2024-12-21 07:35] LABS: Ferritin 142 ng/mL (10-250)
[2024-12-21 07:51] LABS: Folate 13.1 ng/mL (> or = 4.0); Vitamin B12 999 pg/mL (200-900)
[2024-12-21 08:00] VITALS: BP 158/69; PULSE 62; RESP 14; TEMP 36.8; O2SAT 96
[2024-12-21 08:12] LABS: HBS Num1 0.00 mIU/mL (0-7.99); HBc Num1 0.10 S/CO (0.00-0.79); HBsAGNum1 0.42 S/CO (0.00-0.99); Hepatitis B Surface Antigen Negative (Negative); ~HepC Num1 0.08 S/CO (0.00-0.79); ~Hepatitis B Surface Antibody NONREACTIVE (Nonreactive); ~Hepatitis C Antibody Nonreactive (Nonreactive)
[2024-12-21 08:22] LABS: Glucose, Whole Blood 215 mg/dL (60-115)
[2024-12-21] MEDS: Insulin Glargine,Hum.rec.anlog 100 UNIT/ML 10 ML VIAL 15 UNIT SUBCUT (09:02)
[2024-12-21] MEDS: 0.9 % Sodium Chloride Flush 3 ML SYRINGE IVFLUSH (09:03)
[2024-12-21 11:46] LABS: Glucose, Whole Blood 245 mg/dL (60-115)
--- NOTE | 2024-12-21 12:18 | P.DS_ITS ---
DS: Providers Provider Date of Service: 12/21/24 Date of admission: 12/17/24 23:04 Date of discharge: 12/21/24 Primary care physician: Unknown Physician Consults: 12/20/24 08:09 Consult to Gastroenterology Routine Consulting Provider: Arden Griffin Reason for consultation: Abn LFT's Has provider been notified: Yes DS: Diagnosis Discharge Diagnosis (1) Abnormal LFTs: Status: Acute (2) Type 1 diabetes mellitus with hyperglycemia: Status: Acute DS: Summary Hospital Course Hospital Course: 69 yo female with PMH IDDM type 1 on insulin pump, HTN, HLD, OA knee, marijuana use via vaping, CTS, SBO 7 years ago, Anxiety, Hypothyroidism presents to the ED for the second time in 48 hours for complaints of N/V/D that have gone unresolv ed although nursing reports no episodes of vomiting or diarrhea since arrival. This past Tuesday, patient was at a winery and drank a bottle of wine. Patient states she does not usually drink alcohol. Since then patient has not been able to keep anything down and has not been eating well. Pt had removed her insulin pump on arrival noting ketosis but pt not in DKA. MAX glucose 383, CO2 13, AG 2 2, PH 7.29, Bicarb 13. After fluids, pt's labs have improved greatly, CO2 21, AG 17, PH 7.45, Bicarb 20. UA positive for ketones. Pt is still complaining of nausea with extreme thirst. Toxicology screen positive for marijuana only. Pt experienced severe anxiety and received one dose of valium which provided relief but patient is still not able to lie quietly for long periods of time before she has a sit-up suddenly and then tries to lie down again. Hospital course Patient was admitted to general medical floor. Over the next 72 hours vomiting gradually resolved and she was able to tolerate diet. On the day before discharge her LFTs essentially tripled. She was seen in consultation by GI who felt this was related to fatty liver an ultrasound was taken and reviewed by GI. At this point in time her enzymes are stable and it is felt from a GI standpoint she can be discharged home to avoid alcohol and NSAIDs and repeat her labs in 1 week. She can follow up with GI at the discretion of her PCP Time Attestation Discharge Coordination Time (in mins): 35 Quality: Safe Use of Opioids Does Pt have an Active Cancer Diagnosis on the Problem List?: No Quality: Stroke Does the patient have a stroke diagnosis?: No Physical Exam Vital Signs: Vital Signs: Last Vital Signs Temp 98.2 F 12/21/24 08:00 Pulse 62 12/21/24 08:00 Resp 14 12/21/24 08:00 BP 158/69 H 12/21/24 08:00 Pulse Ox 96 12/21/24 08:00 O2 Del Method Room Air 12/21/24 08:00 BMI result Body Mass Index 32.9 Const: Other: Awake alert no acute distress Resp: Other: Clear to auscultation bilaterally no rales rhonchi or wheezes Cardio: Other: No S4; positive S1-S2; no S3 murmurs rubs or gallops GI: Other: Soft nontender nondistended normoactive bowel sounds Extrem: Other: No edema bilaterally DS: Data Data Completed and Pending Labs on day of discharge: Laboratory Results - last 24 hr 12/20/24 12/20/24 12/20/24 16:23 20:26 22:55 Hold Purple Top Sodium Potassium Chloride Carbon Dioxide Anion Gap BUN Creatinine Estim Creat Clear Calc Estimated GFR POC Glucose 189 H 176 H 43 L* Fasting Glucose Calcium Iron TIBC % Saturation Unsat Iron Binding Ferritin Total Bilirubin Direct Bilirubin AST ALT Alkaline Phosphatase Total Protein Albumin Vitamin B12 Folate Hep Bs Antigen Hep Bs Antibody Hep B Core Total Ab Hepatitis C Ab (EIA) 12/20/24 12/20/24 12/21/24 23:25 23:46 05:54 Hold Purple Top SEE NOTE Sodium 144 Potassium 3.4 Chloride 106 Carbon Dioxide 30 H Anion Gap 11 L BUN 5 L Creatinine 0.66 Estim Creat Clear Calc 88.2 Estimated GFR > 60 POC Glucose 76 84 Fasting Glucose 139 H Calcium 8.9 Iron 22 L TIBC 208 L % Saturation 11 L Unsat Iron Binding 186 Ferritin 142 Total Bilirubin 0.4 Direct Bilirubin 0.2 AST 158 H ALT 162 H Alkaline Phosphatase 108 Total Protein 6.0 L Albumin 3.7 Vitamin B12 999 H Folate 13.1 Hep Bs Antigen Negative Hep Bs Antibody NONREACTIVE Hep B Core Total Ab Nonreactive Hepatitis C Ab (EIA) Nonreactive 12/21/24 12/21/24 08:14 11:41 Hold Purple Top Sodium Potassium Chloride Carbon Dioxide Anion Gap BUN Creatinine Estim Creat Clear Calc Estimated GFR POC Glucose 215 H 245 H Fasting Glucose Calcium Iron TIBC % Saturation Unsat Iron Binding Ferritin Total Bilirubin Direct Bilirubin AST ALT Alkaline Phosphatase Total Protein Albumin Vitamin B12 Folate Hep Bs Antigen Hep Bs Antibody Hep B Core Total Ab Hepatitis C Ab (EIA) Discharge Plan Discharge Anticipated Discharge Date/Time: 12/21/24 12:10 Patient Disposition: Home, Self-Care Discharge Diagnosis: Diabetic ketoacidosis with intractable vomiting Referrals: Physician,Unknown J [Primary Care Provider, Medical] - 1 Week Discharge Medications: Continued (DME) FreeStyle Lite Strips Strip See Rx Instructions .ROUTE .MEDSUPPLY Qty: 150 11RF Rx Instructions: As directed four times a day lisinopril 10 mg tablet 10 mg PO DAILY Qty: 90 8RF (DME) Dexcom G6 Sensor Device See Rx Instructions .ROUTE .MEDSUPPLY Qty: 3 11RF Rx Instructions: As directed one every 10 days (DME) Dexcom G6 Transmitter Device See Rx Instructions .ROUTE .COMPLEX Qty: 1 0RF Dose Instruction: DIRECTED Rx Instructions: DIRECTED change every 3 months citalopram 40 mg tablet 40 mg PO DAILY Qty: 90 0RF multivitamin Tablet 1 tab PO DAILY gabapentin 300 mg capsule 600 mg PO BEDTIME insulin lispro 100 unit/mL solution 70 unit continuous subcutaneous infusion DAILY Rx Instructions: Medtronic pump levothyroxine 100 mcg tablet 100 mcg PO DAILY@0600 (DME) blood-glucose meter [FreeStyle Lite Meter] Kit See Rx Instructions .Route Rx Instructions: As directed Discontinued simvastatin 20 mg tablet 20 mg PO BEDTIME Qty: 90 0RF meloxicam 15 mg tablet 15 mg PO DAILY Qty: 30 2RF Discharge Orders: Discharge Order (Routine); Ordered 12/21/24 Ordered By: Arik Bishop Diet: Advance to usual diet Activity on Discharge: As tolerated Stand Alone Forms: Patient Portal Discharge page Print Language: [place] Citizen Care Plan Goals: Do not take your meloxicam or your simvastatin. Call your PCP for labs and decision can be made to restart statin based on your labs. Health Concerns: Make an appointment to follow up with Dr. Griffin after PCP Plan of Treatment: No alcohol Assessment: See discharge summary
--- NOTE | 2024-12-21 12:21 | MHC.CM.PN ---
DP: PT HAS BEEN MEDICALLY CLEARED FOR DC HOME, NO SERVICES. PT HAS OWN RIDE HOME
[2024-12-25 14:43] LABS: Anti Nuclear Antibody Screen NEGATIVE (NEGATIVE)
== END 2024-12-21 13:01 | disposition home or self-care (01) | DRG 639 ==
LOC: HO.ED 23:52 → HO.EDOVER 23:57 → HO.S3 12-18 00:14
PROVIDERS: Internal Medicine; Nurse Practitioner Family; Admitting Provider Student in an Organized Health Care Education/Training Program; Emergency Provider Emergency Medicine; Visit Provider Hospitalist
DX: E10.10 Type 1 diabetes mellitus with ketoacidosis without coma (principal); E86.0 Dehydration; E03.9 Hypothyroidism, unspecified; K29.20 Alcoholic gastritis without bleeding; E10.43 Type 1 diabetes mellitus with diabetic autonomic (poly)neuropathy; K31.84 Gastroparesis; F41.9 Anxiety disorder, unspecified; F32.A Depression, unspecified; K76.0 Fatty (change of) liver, not elsewhere classified; E66.9 Obesity, unspecified; Z68.32 Body mass index [BMI] 32.0-32.9, adult; E10.40 Type 1 diabetes mellitus with diabetic neuropathy, unspecified; Z96.41 Presence of insulin pump (external) (internal); Z87.891 Personal history of nicotine dependence; Z79.890 Hormone replacement therapy; Z79.899 Other long term (current) drug therapy
CPT/HCPCS: 36415; 76705; 80048; 80053; 80076; 80307; 81001; 82010; 82103; 82607; 82728; 82746; 82803; 82947; 83540; 83690; 83735; 85025; 85027; 86015; 86038; 86381; 86704; 86706; 86803; 87086; 87340; 93005; 99285; J0737; J1650; J2405; J2470; J2765; J3360; J7120

== ENCOUNTER → 2024-12-17 16:24 | Outpatient (BNV) | payer OTHER, SELFPAY | PROVIDERS: Admitting Provider Student in an Organized Health Care Education/Training Program; Emergency Provider Emergency Medicine; Visit Provider Internal Medicine Cardiovascular Disease | DX: R94.31 Abnormal electrocardiogram [ECG] [EKG] (principal); R53.1 Weakness | CPT/HCPCS: 93010 ==

== ENCOUNTER 2024-12-17 23:04 | Outpatient (BNV) | payer OTHER, SELFPAY | END 2024-12-21 07:00 | PROVIDERS: Admitting Provider Student in an Organized Health Care Education/Training Program; Emergency Provider Emergency Medicine; Visit Provider Radiology Diagnostic Radiology | DX: R94.5 Abnormal results of liver function studies (principal) | CPT/HCPCS: 76705 ==

== ENCOUNTER → 2024-12-17 23:04 | Outpatient (BNV) | payer OTHER, SELFPAY | PROVIDERS: Admitting Provider Student in an Organized Health Care Education/Training Program; Emergency Provider Emergency Medicine; Visit Provider Nurse Practitioner Family | DX: E10.40 Type 1 diabetes mellitus with diabetic neuropathy, unspecified (principal); I10 Essential (primary) hypertension | CPT/HCPCS: 99223; 99233; 99239 ==

== ENCOUNTER 2025-01-01 13:43 | Outpatient (REF) | payer OTHER, SELFPAY ==
--- OUTSIDE RECORDS SUMMARY | 2025-01-01 14:59 | XMS_ITS | Clinical Summary ---
Author Organization [facility] Address [address] [facility] [address] [place] [phone] Phone Care Team Providers Care Actuarial Science Teacher Name Role Phone Daniel Wayne MD Primary Care Provider [phone] Allergies No known active allergies Medications citalopram (CELEXA) 40 MG tablet Take 1 tablet by mouth every morning. 03/04/20 23 Active glucagon (GVOKE HYPOPEN 2-PACK) 1 [...] GLUCOSE 3 TIMES DAILY 1 each 12/21/19 24 Active meloxicam (MOBIC) 15 MG tablet Take [...] at bedtime. 180 capsule 1 03/27/20 Active levothyroxine (SYNTHROID, LEVOTHROID) 100 MCG tablet TAKE [...] BEDTIME 90 tablet 1 11/14/19 25 Active Additional Information Patient not taking.Reported on 12/26/2024 HUMALOG U-100 INSULIN 100 unit/mL injection vial Via pump 02/23/20 025 Discontin ued(Dupli konstantin order) Active Problems Problem Noted Date Diagnosed Date Other dysphagia 12/26/2024 Assessment & Plan (12/26/2024 10:24 AM EDT): This has been new for the last 10 days since getting sick. Discussed bringing this up with her PCP later today to have further work up done to determine the cause Type 1 diabetes mellitus with hypoglycemia cruz kimball 03/30/2023 Assessment & Plan (01/03/2024 9:24 AM EDT): She had two episodes of lows while not on her sensor. She was unaware of the low and only knew about the lows as it was time to check her glucose levels to bolus for food. She is awaiting a new transmitter from [employer] to restart using the continuous glucose monitor [...] is likely due to scar tissue from alf use of the insulin pump. She took [...] nail care good. [facility] to date with [facility], to request report be sent here. Labs order include antibodies to ensure type 1 diagnosis is correct. Will order a c-peptide and fasting glucose to have for when she switches to medicare to be able to continue pump therapy. She was also seen by Dr Hobbs to discuss the treatment plan. DM type 1 with diabetic peripheral neuropathy Assessment & Plan (12/26/2024 10:28 AM EDT): Control is reasonable based upon the patient's insulin pump and sensor download. No frequent or severe hypoglycemia. She recently had DKA secondary to the vomiting and diarrhea she had. They are not sure what caused the vomiting and diarrhea. She is going to be seeing her PCP later today to discuss further workup. Will maintain her insulin pump settings for now as her glucose levels are starting to stabilize since being home on 12/21. Continue to work on eating healthy and trying to be active. To call or message with any issues managing her glucose levels. Needs to schedule ophtho. Labs ordered Assessment & Plan (11/08/2024 1:59 PM EDT): [...] her glucose levels. Up to date with [facility]. Reviewed recent labs, labs ordered to be [...] his glucose levels. Up to date with [facility]. Labs ordered to be done prior to [...] his glucose levels. Up to date with [facility]. Labs ordered to be done prior to next visit. Acquired hypothyroidism 03/30/2023 Assessment & Plan (12/26/2024 10:24 AM EDT): Will check levels to determine if medication adjustments are needed Assessment & Plan (06/27/2024 9:50 AM EST): [...] pump in place 03/30/2023 Assessment & Plan (12/26/2024 10:24 AM EDT): She is using the tandem t-slim control IQ insulin pump and getting supplies from [employer]. She is using the dexcom G6 CGM and getting supplies from the local pharmacy Assessment & Plan (11/07/2024 3:17 PM EDT): [...] IQ insulin pump and getting supplies from [employer]. She is using the dexcom G6 CGM and getting supplies from the local pharmacy Assessment & Plan (03/31/2023 7:18 AM EST): She is using the tandem t-slim control IQ insulin pump and getting supplies from [employer]. 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); Insulin pump in place; Acquired hypothyroidism; Other dysphagia 11/11/2024 Refill [facility] Endocrinology [address] [place] [address] [place] [phone] Angelia Encinas PA-C Medication Refill 11/09/2024 Telephone [facility] [address] [place] [address] Angelia Encinas PA-C [facility]GM Issue 11/07/2024 1:30 PM EDT Office Visit [facility] [address] [place] [address] Angelia Encinas PA-C 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); Insulin pump in place 10/08/2024 Refill [facility] [address] [place] [address] Angelia Encinas PA-C Medication Refill from Last 3 Months Social History Tobacco Use Types Packs/Day Years Used Date Smoking Tobacco: Former Cigarettes 0.3 10 1 97 - 1982 Passive Smoke Exposure: Past Smokeless [...] Pulse 80 12/26/2024 9:32 AM EDT Temperature 36.5 C (97.7 F) 03/27/2024 8:03 AM EST Respiratory Rate - - Oxygen Saturation 98% 12/26/2024 9:32 AM EDT Inhaled Oxygen Concentration - - Weight 80.3 kg (177 lb) 12/26/2024 9:32 AM EDT Height 163.8 cm (5' 4.49 ) 12/26/2024 9:32 AM ED T Body Mass Index 29.92 12/26/2024 9:32 AM EDT Plan of Treatment Upcoming Encounters Date Type Department Care Team (Late st Contact Info) Description 01/16/2025 9:00 AM EDT Nutrition [facility] [address] [place] [address] [place] [address] Carol Ann Beltran MD [address] [place] [phone] Cydney Perez LDN [address] [place] [phone] 03/11/2025 8:20 AM EST Office Visit [facility] [address] [place] [address] [place] [address] Ana Hobbs MD [address] [place] [phone] 07/01/2025 8:20 AM EST Office Visit [facility] [address] [phone] Angelia Encinas PA-C [address] [place] [phone] Health Maintenance Due Date Last Done Comments [...] AL (ONE-TIME) 2022 DIABETIC EYE EXAM 03/30/2023 HEMOGLOBIN A1C 03/23/2024 09/21/2023 POTASSIUM LEVEL 05/18/2024 05/18/2023 INFLUENZA VACCINE (#1) 2024 COVID-19 VACCINE (1 - 2023-2 5 season) 2024 CREATININE LEVEL 06/20/2025 06/20/2024, 05/18/2023 TSH LEVEL 06/20/2025 06/20/2024, 09/21/2023, 05/18/2023 BLOOD PRESSURE 06/28/2025 12/26/2024 SMOKING STATUS SCREENING (On ce After 26 [...] MD LAB BLOOD ORDERABLES Final Res ult [address] [address] * TSH with reflex (06/20/2024 9:46 AM EST) Blood us Ana Hobbs MD LAB BLOOD ORDERABLES Final Res ult Performing Organization Address [facility] Co de Phone Number [address] [phone] * (ABNORMAL) Hemoglobin A1c (09/21/2023 9:13 AM EDT) HEMOGLOBIN A1C 7.8(H) 4.3 - 5.8 % [facility] Blood 09/21/2023 9:13 AM EDT 09/21/2023 9:20 AM EDT Ana Hobbs MD LAB BLOOD ORDERABLES Final Res ult Performing Organization Address [facility] de Phone Number [address] [address] * Basic metabolic panel (05/18/2023 8:08 AM EST) Blood Angelia Encinas PA-C LAB BLOOD ORDERABL ES Final Result Performing Organization Address [facility] de Phone Number [address] [phone] from Last 3 Months or Most Recently Relevant to Health Maintenance Insurance [employer] PPO CIG PPO CIGNA PPO CIGNA PPO CIGNA PPO CIGNA PPO Member Subscriber Plan / Payer (Ef fective 2019-Present) Name:Amy Jay Relation to Subscriber:Self Name:Amy Jay Payer ID:[id number] (NA) Type:PPO Address: [address] [place] [id number] Care Teams Actuarial Science Teacher Relationship Specialty Start Date End Date Daniel Wayne MD [address] [place] [address] [place] [phone] PCP - General Internal Medicine 01/06/23 Additional Source Comments The information contained in this document represents components of the legal health record. It is not the complete legal health record.[facility]
[2025-01-01 15:15] LABS: Albumin Level 4.6 g/dL (3.5-5.0); Alkaline Phosphatase 122 U/L (39-117); Aspartate Amino Transferase 55 U/L (5-31); Total Protein 7.6 g/dL (6.5-8.0)
[2025-01-01 16:38] LABS: Alanine Aminotransferase 58 U/L (0-31)
== END 2025-01-01 13:44 | disposition home or self-care (01) ==
LOC: HO.LAB 13:43
PROVIDERS: Visit Provider Internal Medicine
DX: R79.89 Other specified abnormal findings of blood chemistry (principal)
CPT/HCPCS: 36415; 80076

== ENCOUNTER 2025-01-11 09:01 | Outpatient (AMB) | payer OTHER, SELFPAY ==
--- OUTSIDE RECORDS SUMMARY | 2024-12-26 09:40 | XMS_ITS | Encounter Summary ---
Author Organization [facility] Address [address] [facility] [address] [place] [phone] Phone Care Team Providers Care Data Management Specialist Name Role Phone Daniel Wayne MD Primary Care Provider [phone] Reason for Visit * Reason Comments Follow-up Was in hospital [facility] [place] last week Encounter Details Date Type Department Care Team (Late st Contact Info) Description 12/26/2024 9:40 AM EDT Office Visit [facility] [address] [place] [address] Angelia Encinas PA-C [address] [place] [address] [email or web address] 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 Not on file 09 / Comments Unknown Sex and Gender Information Value Date Recorded Sex Assigned at Female 03/28/2023 3:45 PM EST Legal Sex Female 9:07 AM EDT Gender Identity Female 03/28/2023 3:45 PM EST Sexual Orientation Straight 03/28/2023 3: 45 PM EST documented as of this encounter Last Filed Vital Signs Vital Sign Reading Time Taken Comments Blood Pressure 112/62 12/26/2024 9:32 AM EDT Pulse 80 12/26/2024 9:32 AM EDT Temperature - - Respiratory Rate - - Oxygen Saturation 98% 12/26/2024 9:32 AM EDT Inhaled Oxygen Concentration - - Weight 80.3 kg (177 lb) 12/26/2024 9:32 AM EDT Height 163.8 cm (5' 4.49 ) 12/26/2024 9:32 AM ED T Body Mass Index 29.92 12/26/2024 9:32 AM EDT documented in this encounter Progress Notes * Angelia Encinas PA-C - 12/26/2024 9:40 AM EDT Subjective: Patient ID: Amy Jay is a 69 y.o. female. In the interval since the last visit, late Tuesday night 12/15 early Saturday 12/16 she woke up with diarrhea and vomiting- this continues all night then Tuesday morning went to the ER at [place] via ambulance. While in the hospital she was given IV fluids and insulin and able to stay out of DKA and sent home, with diagnosis of gastroenteritis. She went home Tuesday and went to bed as she was so weak she could barely stand. By 12/18 she was experiencing severe vomiting and diarrhea again. She was taken back to the ER via ambulance again on Monday 12/18 and was in DKA. She was in the hospital until 12/21. They are not sure what caused the vomiting and diarrhea. She has felt weak Hemoglobin A1C: Reviewed last A1C reviewed from 06/26 was 7.4%, will order labs. Blood glucose monitoring: using the dexcom G6 sensor, average reading is 184, time in range is 58%, time high is 25%, time very high is 16%, time low is 0.5%, time very low is 0.3%. Hypoglycemia: none. Problems with medications: none. Recent weight changes: lost 4 pounds since 06/26. Diet : 1 ensure for breakfast, trying to get small frequent snacks rather than meals due to not being hungry. Activity: none. Optho: needs to schedule annual visit. Foot: no issues. Injection/pump site & timing: rotating on abdomenfor infusion set and sensors, changing the sensor every 10 days, bolusing before to after eating depending upon glucose levels, no lipohypertrophy or bruising Current Outpatient Medications Ordered in [facility]: citalopram (CELEXA) 40 MG tablet, Take 1 tablet by mouth every morning. DEXCOM G6 SENSOR Sydni, 1 each by Percutaneous route Every 10 Days. Change out every 10 days DEXCOM G6 TRANSMITTER Sydni, USE TO MONITOR BLOOD SUGAR, CHANGE EVERY 3 MONTHS gabapentin (NEURONTIN) 300 MG capsule, Take 2 capsules (600 mg total) by mouth nightly at bedtime. glucagon (GVOKE HYPOPEN 2-PACK) 1 mg/0.2 mL subcutaneous auto-injector, Inject 0.2 mL (1 mg total) under the skin once as needed (for severe hypoglycemia). insulin lispro (ADMELOG, HUMALOG) 100 unit/mL injection vial, ADMINISTER 70 UNITS DAILY UNDER THE SKIN CONTINUOUSLY VIA INSULIN PUMP levothyroxine (SYNTHROID, LEVOTHROID) 100 MCG tablet, TAKE 1 TABLET BY MOUTH EVERY DAY lisinopril (PRINIVIL,ZESTRIL) 10 MG tablet, TAKE 1 TABLET BY MOUTH EVERY DAY ONETOUCH VERIO FLEX METER Misc meter, by Miscellaneous route as directed. USED TO TEST GLUCOSE 3 TIMES DAILY ONETOUCH VERIO Strp strips, 1 each by Miscellaneous route 3 (three) times a day before meals. urine glucose-ketones test Strp, To test for urine ketone if glucose consistently greater than 240 HUMALOG U-100 INSULIN 100 unit/mL injection vial, Via pump meloxicam (MOBIC) 15 MG tablet, Take 15 mg by mouth daily. (Patient not taking: Reported on 12/26/2024) simvastatin (ZOCOR) 20 MG tablet, TAKE 1 TABLET BY MOUTH AT BEDTIME (Patient not taking: Reported on 12/26/2024) Review of Systems Constitutional: Positive for fatigue. Negative for unexpected weight change. HENT: Positive for trouble swallowing (for the last 10 days). Eyes: Positive for wears glasses. Negative for unexpected vision change. Respiratory: Positive for shortness of breath. Negative for cough. Cardiovascular: Negative for chest pain and leg swelling. Gastrointestinal: Negative for constipation and diarrhea. Genitourinary: Negative for nocturia. Neurological: Positive for numbness (tingling and paraesthesia). Psychiatric/Behavioral: Negative for sleep disturbance. Objective: Physical Exam Vitals reviewed. Constitutional: Appearance: Normal appearance. Skin: General: Skin is warm. Neurological: Mental Status: She is alert and oriented to person, place, and time. Psychiatric: Mood and Affect: Mood normal. Behavior: Behavior normal. Assessment/Plan: Problem List Items Addressed This Visit DM type 1 with diabetic peripheral neuropathy - Primary Control is reasonable based upon the patient's insulin pump and sensor download. No frequent or severe hypoglycemia. She recently had DKA secondary to the vomiting and diarrhea she had. They are not sure what caused the vomiting and diarrhea. She is going to be seeing her PCP later today to discussfurther workup. Will maintain her insulin pump settings for now as her glucose levels are starting to stabilize since being home on 12/21. Continue to work on eating healthy and trying to be active. To call or message with any issues managing her glucose levels. Needs to schedule ophtho. Labs ordered Relevant Orders Hemoglobin A1c Alanine aminotransferase (ALT) Aspartate aminotransferase (AST) Basic metabolic panel Acquired hypothyroidism Will check levels to determine if medication adjustments are needed Relevant Orders TSH with reflex Insulin pump in place She is using the tandem t-slim control IQ insulin pump and getting supplies from [employer]. She is using the dexcom G6 CGM and getting supplies from the local pharmacy Other dysphagia This has been new for the last 10 days since getting sick. Discussed bringing this up with her PCP later today to have further work up done to determine the cause I personally spent a total of 48 minutes on the care of this patient on the date of the encounter, excluding the time taken to download and review the patient's CGM. This included face to face time during the visit as well as non-face to face time spent on chart review, documentation, and care coordination. * Ana Hobbs MD - 12/26/2024 9:40 AM EDT Subject Line: Provider Attestation I have reviewed the notes, assessments, and/or procedures performed by TYRONE Antonio. I concur with her documentation of Amy Jay. documented in this encounter Miscellaneous Notes * Assessment & Plan Note - Angelia Encinas PA-C - 12/26/2024 10:26 AM EDTAssociated Problem(s): DM type 1 with diabetic peripheral neuropathy Control is reasonable based upon the patient's insulin pump and sensor download. No frequent or severe hypoglycemia. She recently had DKA secondary to the vomiting and diarrhea she had. They are not sure what caused the vomiting and diarrhea. She is going to be seeing her PCP later today to discussfurther workup. Will maintain her insulin pump settings for now as her glucose levels are starting to stabilize since being home on 12/21. Continue to work on eating healthy and trying to be active. To call or message with any issues managing her glucose levels. Needs to schedule ophtho. Labs ordered * Assessment & Plan Note - Angelia Encinas PA-C - 12/26/2024 10:24 AM EDTAssociated Problem(s): Insulin pump in place She is using the tandem t-slim control IQ insulin pump and getting supplies from [employer]. She is using the dexcom G6 CGM and getting supplies from the local pharmacy * Assessment & Plan Note - Angelia Encinas PA-C - 12/26/2024 10:24 AM EDTAssociated Problem(s): Acquired hypothyroidism Will check levels to determine if medication adjustments are needed * Assessment & Plan Note - Angelia Encinas PA-C - 12/26/2024 10:24 AM EDTAssociated Problem(s): Other dysphagia This has been new for the last 10 days since getting sick. Discussed bringing this up with her PCP later today to have further work up done to determine the cause documented in this encounter Plan of Treatment Upcoming Encounters Date Type Department Care Team (Late st Contact Info) Description 01/16/2025 9:00 AM EDT Nutrition [facility] [address] [place] [address] [place] [address] Carol Ann Beltran MD [address] [place] [phone] Cydney Perez LDN [address] [place] [phone] 03/11/2025 8:20 AM EST Office Visit [facility] [address] [place] [address] [place] [address] Ana Hobbs MD [address] [place] [phone] 07/01/2025 8:20 AM EST Office Visit [facility] [address] [phone] Angelia Encinas PA-C [address] [place] [phone] Scheduled Orders Name Type Priority Associated Diagnoses Orde r Schedule Hemoglobin A1c Lab Routine DM type 1 with diabetic peripheral neuropathy Expected: 12/26/2024, Expires: 12/26/2025 Alanine aminotransferase (ALT) Lab Routine DM type 1 with diabetic peripheral neuropathy Expected: 12/26/2024, Expires: 12/26/2025 Aspartate aminotransferase (AST) Lab Routine DM type 1 with diabetic peripheral neuropathy Expected: 12/26/2024, Expires: 12/26/2025 Basic metabolic panel Lab Routine DM type 1 with diabetic peripheral neuropathy Expected: 12/26/2024, Expires: 12/26/2025 TSH with reflex Lab Routine Acquired hypothyroidism Expected: 12/26/2024, Expires: 12/26/2025 documented as of this encounter Visit Diagnoses Diagnosis DM type 1 with diabetic peripheral neuropathy- Primary Insulin pump in place Insulin pump status Acquired hypothyroidism Unspecified hypothyroidism Other dysphagia documented in this encounter Care Teams Data Management Specialist Relationship Specialty Start Date End Date Daniel Wayne MD [address] [place] [address] [place] [address] PCP - General Internal Medicine 01/06/23 documented as of this encounter Additional Source Comments The information contained in this document represents components of the legal health record. It is not the complete legal health record.[facility]
--- NOTE | 2025-01-11 09:04 | MHC.PC.OV ---
Vital Signs 01/11/25 09:06 Height 5 ft 4 in Weight 177 lb BMI 30.4 BP 100/50 L Blood Pressure Location Lt brachial Position Sitting Pulse 86 Pulse Source Pulse Oximeter Pulse Oximetry (%) 98 Oxygen Delivery Method Room Air Intake Visit Reasons: EL Dr Wayne Material Clerk Required: No Accompanied by: Self / Same As Patient Allergies No Known Allergies (No Known Allergies*) Allergy (Verified 01/11/25 09:10) Medication List - Last Reconciled 01/11/25 by Yasmin Ewing PA-C blood sugar diagnostic (FreeStyle Lite Strips) As directed four times a day blood-glucose meter (FreeStyle Lite Meter kit) As directed blood-glucose sensor (Dexcom G6 Sensor device) As directed one every 10 days blood-glucose transmitter (Dexcom G6 Transmitter device) DIRECTED change every 3 months citalopram 40 mg PO DAILY gabapentin 600 mg PO BEDTIME insulin lispro 70 units continuous subcutaneous infusion DAILY levothyroxine 100 mcg PO DAILY@0600 lisinopril 10 mg PO DAILY meloxicam 15 mg PO DAILY multivitamin 1 tab PO DAILY simvastatin 20 mg PO BEDTIME Tobacco use date assessed: 01/11/25 Fall risk assessment: 1 Fall in past year Last assessed Fall Risk: 01/11/25 Dental Screening Dental Screen Date: 01/11/25 Did you have a dental visit in the last 12 months?: Yes Did you have a dental problem in the last 6 months where you did not have access to dental care?: No Was dental information given to patient?: Patient has dentist HPI EL Dr Wayne HPI Details 69-year-old female with past medical history of hypothyroidism, diabetes mellitus, hyperlipidemia, depression, hypertension last seen 06/2024 coming in for transfer care. In review of the notes, patient was seen in [facility] 12/14/2024 for nausea and vomiting.?Patient had removed her insulin pump prior to arrival noted ketosis without DKA and admitted to general medical floor. Over the course of 3 days patient gradually improved is able to tolerate diet. One day prior to discharge LFTs increased consultation by GI who believed it was related to fatty liver. Advised to avoid alcohol and NSAIDs and repeat labs in 1 week and follow up with GI as needed. Presenting with a follow-up visit after hospitalization and to address ongoing health concerns including arthritis, anxiety, and medication management. Reports worsening knee pain and new shoulder pain, likely related to arthritis, exacerbated by stopping meloxicam for three weeks. Dyspnea and chest pain Experienced when climbing stairs, improved after stopping vaping. Mammogram: 08/2024 Eye exam: yearly Pap smear: declined DEXA: ordered today Colonoscopy: follows with Dr. 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 Carpal tunnel syndrome Osteoarthritis Obesity due to excess calories Hx of small bowel obstruction Carpal tunnel syndrome Depression with anxiety Type 1 diabetes mellitus with hyperglycemia Type 1 diabetes mellitus with diabetic neuropathy Hyperlipidemia LDL goal <100 Hypothyroidism, unspecified Surgical History History of tooth extraction History of eye surgery Hx of esophagogastroduodenoscopy Hx laparoscopic cholecystectomy Hx of hysterectomy Hx of colonoscopy Family History Father CVD (cardiovascular disease) CHF (congestive heart failure) Mother Diabetes mellitus Paternal Grandfather Diabetes mellitus Paternal Grandmother Diabetes mellitus Sister Diabetes mellitus Pancreatic cancer Brother Pancreatic cancer Social History Household Members: Spouse Housing: [facility] Are you a primary youth care specialist to a significant other at home: No Do you presently have visiting nurse or other home services: No Alcohol intake: current Alcohol intake frequency: holidays/special occasions only Alcohol type: wine Patient Tobacco Use Status: Former Tobacco user e-Cigarette/Vaping Use: Former Use Second Hand Smoke Exposure: Yes Substance Use Type: Marijuana service: No Current occupational status: employed Current occupation: [employer] Cognitive needs: No Hearing needs: No Vision needs: Yes (glass) Questionnaire PHQ-9 Over the last 2 weeks, how often have you been bothered by any of the following problems? 1. Little interest or pleasure in doing things: not at all 2. Feeling down, depressed, or hopeless: not at all 3. Trouble falling or staying asleep, or sleeping too much: not at all 4. Feeling tired or having little energy: several days 5. Poor appetite or overeating: not at all 6. Feeling bad about yourself - or that you are a failure or have let yourself or your family down: not at all 7. Trouble concentrating on things, such as reading the newspaper or watching television: not at all 8. Moving or speaking so slowly that other people could have noticed. Or the opposite - being so fidgety or restless that you have been moving around a lot more than usual: not at all 9. Thoughts that you would be better off or of hurting yourself in some way: not at all Total score: 1 Depression Screening Interpretation: Negative Depression Screening Done: Yes Source: Developed by Drs. Arden Olivia, Ynes Sprague, Noé Lamas and colleagues, with an educational spencer from [employer]. Thrive Questionnaire Date Thrive assessed: 06/18/24 I am a: Patient What is your living situation today?: I have a steady place to live Within the past 12 months, did the food you bought not last and you didn't have the money to get more?: Never true Within the past 12 months, did you worry whether your food would run out before you got money to buy more?: Never true Do you have trouble paying for medicines?: No Do you have trouble getting transportation to medical appointments?: No Do you have trouble paying your heating and electricity bill?: No Do you have trouble taking care of your child, family member or friend?: No Do you have trouble with day-to-day activities such as bathing, preparing meals, shopping, managing finances, etc.?: No Are you currently unemployed and looking for a job?: No Are you interested in more education?: No Please select the resources that you would like help with: None Currently or been in a relationship where the following occur: No concerns reported THRIVE Score: 0 AUDIT C Alcohol Use Questionnaire (AUDIT-C) 1. How often do you have a drink containing alcohol?: 2-4 times a month 2. How many drinks containing alcohol do you have on a typical day when you are drinking?: 1 or 2 3. How often do you have six or more drinks on one occasion?: Never Total Score: 2 JN-7 AMB Questionnaire JN-7 Date JN - 7 assessed: 06/18/24 Feeling nervous, anxious, or on edge: 0 = Not at all Not being able to stop or control worryin = Not at all Worrying too much about different things: 0 = Not at all Trouble relaxin = Not at all Being so restless that it is hard to sit still: 0 = Not at all Becoming easily annoyed or irritable: 0 = Not at all Feeling afraid as if something awful might happen: 0 = Not at all Total JN-7 score (0-4 normal; 5-9 mild; 10-14 moderate; 15-21 severe): 0 Source: Developed by Drs. Arden Olivia, Ynes Sprague, Noé Lamas and colleagues, with an educational spencer from [employer]. Review of Systems Const Denies body aches, Denies chills, Denies fever(s), Denies headache(s) and Denies poor appetite Eyes Reports no additional complaints ENT Denies dizziness and Denies headache(s) Card Denies chest pain, Denies edema, Denies irregular heart rhythm, Denies lightheadedness and Denies dyspnea Resp Denies cough and Denies dyspnea GI Denies abdominal pain, Denies constipation, Denies diarrhea, Denies nausea and Denies vomiting Reports no additional complaints Musc Reports no additional complaints and Denies abnormal gait Skin/Breast Reports system reviewed and no additional complaints, except as documented Neuro Denies abnormal gait, Denies dizziness and Denies headache(s) Psych Reports no additional complaints Physical exam (Primary Care) Vital Signs: Last Vital Signs Pulse 86 01/11/25 09:06 BP 100/50 L 01/11/25 09:06 Pulse Ox 98 01/11/25 09:06 Oxygen Delivery Method Room Air 01/11/25 09:06 BMI result Body Mass Index 30.4 Tobacco/Smoking Status: Tobacco use Status Tobacco use date assessed 01/11/25 01/11/25 09:10 Patient Tobacco Use Status Former Tobacco user 01/11/25 09:10 Tobacco use type 06/18/24 09:37 e-Cigarette/Vaping Use Former Use 01/11/25 09:30 PHQ-9: PHQ-9 Score PHQ-9: Total score 1 01/11/25 12:51 Depression Screening Interpretation: Negative Thrive Assessment: Date of Thrive Assessment Date Thrive assessed 06/18/24 01/11/25 09:13 Currently or been in a relationship where the following occur: No concerns reported Const General: cooperative, healthy appearing, comfortable and no acute distress Orientation/consciousness: patient oriented x3 HENMT Head: Yes normocephalic Ears: hearing grossly normal bilaterally General nose exam: Normal external nose present Eyes General: appearance normal, both eyes and all related structures Conjunctivae: conjunctivae normal Neck Neck: Yes full ROM and Yes no lymphadenopathy Resp Effort & Inspection: normal respiratory effort Auscultation: clear to auscultation bilaterally, no crackles, no rales, no rhonchi and no wheezes Cardio Rate: regular rate Rhythm: regular rhythm Skin General skin exam: no rashes or lesions noted Neuro General: patient oriented x3 Gait exam (Neuro): Normal gait present Extrem Other: Pain to palpation of lateral aspect of right shoulder pain with extension and lateral raise on the shoulder. No pain with internal rotation. Intact strength, sensation, pulses in bilateral upper extremities General: Yes normal to inspection, Yes full ROM and No edema Psych Affect: normal affect Attitude: cooperative Insight: Good insight present (Psych) Judgement: Good judgement present (Psych) Coding Level of Care Code Est Pt Level 4 (68644) Diagnoses Depression with anxiety F41.8 Hypertension I10 Hyperlipidemia LDL goal <100 E78.5 Diabetes type 1 E10.9 Acquired hypothyroidism E03.9 Hypothyroidism type: acquired Right shoulder pain M25.511 Assessment & Plan Assessment & Plan (1) Depression with anxiety: Code(s): F41.8 - Other specified anxiety disorders Category: Medical Plan: Currently on Citalopram 40mg and feels this medication has been helping. (2) Hypertension: Code(s): I10 - Essential (primary) hypertension Category: Medical Plan: Continue on current blood pressure medication. Avoid salt intake and encourage healthy diet and regular exercise. (3) Hyperlipidemia LDL goal <100: Code(s): E78.5 - Hyperlipidemia, unspecified Category: Medical Plan: Avoid foods that are high in cholesterol such as red meat, fried foods, eggs and baked goods. Triglyceride goal of less than 150 and LDL goal of less than 100. Blood work is ordered through [facility] and continue on Simvastatin. (4) Diabetes type 1: Code(s): E10.9 - Type 1 diabetes mellitus without complications Category: Medical Plan: Decrease the amount of carbohydrates such as pasta, bread, rice, and potatoes and limit the amount of sweets. Although fruits are generally healthy they should be eaten in moderation as they are still high in sugar. Hemoglobin A1c goal of less than 7%. Patient is on insulin pump in his managed by endocrinology in [place]. (5) Hypothyroidism, unspecified: Code(s): E03.9 - Hypothyroidism, unspecified Category: Medical Qualifiers: Hypothyroidism type: acquired Qualified Code(s): E03.9 - Hypothyroidism, unspecified Plan: Last blood work 11/2024 within normal limits continue on levothyroxine 100 mcg at this time (6) Right shoulder pain: Code(s): M25.511 - Pain in right shoulder Category: Medical Plan: The patient reports worsening knee pain and new arm pain, likely related to arthritis, exacerbated by discontinuation of meloxicam for three weeks. The plan is to resume meloxicam as needed, ensuring it is taken with food to minimize gastrointestinal side effects. An x-ray of the shoulder is ordered to assess for arthritis or other causes of pain. We will continue to monitor the LFTs while on MEloxicam Plan This note was constructed using voice recognition software. While every effort has been made to ensure accuracy and bandage maker, still areas may have been included sometimes these areas may affect the content or meeting of the given symptoms. Total time spent caring for the patient today was 30 minutes. This includes time spent before the visit reviewing the chart, time spent during the visit, and time spent after the visit and documentation. Patient was informed and verbally consented to the use of an ambient scribe for clinic note documentation during this visit. Orders: Orders XR DEXA axial skeleton Today Z78.0 - Asymptomatic menopausal state XR shoulder RT min 2V Today M25.511 - Pain in right shoulder
[2025-01-11 09:06] VITALS: BP 100/50; PULSE 86; O2SAT 98; BMI 30.4
--- OUTSIDE RECORDS SUMMARY | 2025-01-11 09:51 | XMS_ITS | Clinical Summary ---
Author Organization [facility] Address [address] [place] [phone] Phone Care Team Providers Care Residential Case Manager Name Role Phone Daniel Wayne MD Primary Care Provider [phone] Allergies No known active allergies Medications citalopram [...] She is awaiting a new transmitter from [employer] to restart using the continuous glucose monitor [...] is likely due to scar tissue from nursing home use of the insulin pump. She took [...] nail care good. [facility] to request report be sent here. Labs [...] her glucose levels. Up to date with [facility]. Reviewed recent labs, labs ordered to be [...] his glucose levels. Up to date with [facility]. Labs ordered to be done prior to [...] IQ insulin pump and getting supplies from [employer]. She is using the dexcom G6 CGM [...] 9:40 AM EDT Office Visit [facility] [address] [place] [address] [place] [address] Angelia Encinas PA-C 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); Insulin pump in place; Acquired hypothyroidism; Other dysphagia 11/11/2024 [place] [facility] [place] [address] [place] [address] [place] [address] Angelia Encinas PA-C Medication Refill 11/09/2024 Telephone [facility] [place] [address] [place] [address] Angelia Encinas PA-C CGM Issue 11/07/2024 1:30 PM EDT Office [place] [facility] [place] [address] [place] [address] Angelia Encinas PA-C 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); Insulin pump in place from Last 3 Months Social History Tobacco Use Types Packs/Day Years Used Date Smoking Tobacco: Former Cigarettes 0.3 10 1 973 1982 Passive Smoke Exposure: Past Smokeless Tobacco: [...] Info) Description 01/16/2025 9:00 AM EDT Nutrition [facility] [address] [place] [address] Carol Ann Beltran MD [address] [place] [phone] Cydney Perez LDN [address] [place] [phone] 03/11/2025 8:20 AM EST Office Visit [facility] [address] [place] [address] [place] [address] Ana Hobbs MD [address] [place] [phone] 07/01/2025 8:20 AM EST Office Visit [facility] [address] [phone] Angelia Encinas PA-C [address] [place] [phone] [email or web address] Health Maintenance Due Date Last Done Comments [...] MD LAB BLOOD ORDERABLES Final Res ult [facility] [address] [place] [address] * TSH with reflex (06/20/2024 9:46 AM EST) Blood us Ana Hobbs MD LAB BLOOD ORDERABLES Final Res ult Performing Organization Address City/[facility]/ZIP Co de Phone Number [address] [address] * (ABNORMAL) Hemoglobin A1c (09/21/2023 9:13 AM EDT) HEMOGLOBIN A1C 7.8(H) 4.3 - 5.8 % [facility] Blood 09/21/2023 9:13 AM EDT 09/21/2023 9:20 AM EDT us Ana Hobbs MD LAB BLOOD ORDERABLES Final Res ult Performing Organization Address [facility] Co de Phone Number [address] [phone] * Basic metabolic panel (05/18/2023 8:08 AM EST) Blood Angelia Encinas PA-C LAB BLOOD ORDERABL ES Final Result Performing Organization Address [facility] Co de Phone Number [address] [phone] from Last 3 Months or Most Recently Relevant to Health [place] [id number] [facility] PPO CIGNA PPO CIGNA PPO CIGNA PPO CIGNA PPO [facility] PPO Care Teams Residential Case Manager Relationship Specialty Start Date End Date Daniel Wayne MD [address] [place] [address] [place] [phone] PCP - General Internal Medicine 01/06/23 Additional Source Comments The information contained in this document represents components of the legal health record. It is not the complete legal health record.[facility]
== END 2025-01-11 09:54 | disposition home or self-care (01) ==
LOC: HO.HMCH 09:02
DX: F41.8 Other specified anxiety disorders (principal); I10 Essential (primary) hypertension; E78.5 Hyperlipidemia, unspecified; E10.9 Type 1 diabetes mellitus without complications; E03.9 Hypothyroidism, unspecified; M25.511 Pain in right shoulder

== ENCOUNTER 2025-03-20 10:54 | Outpatient (REF) | payer OTHER, SELFPAY ==
--- NOTE | ~2025-03-20 | MM_ITS ---
EXAMINATION: DXA BONE DENSITY AXIAL HISTORY: Z78.0 - Asymptomatic menopausal state TECHNIQUE: [employer] Dual energy absorptiometry (DEXA) of the lumbar spine, total left hip, and femoral neck was performed. COMPARISON: There are no prior studies for comparison. FINDINGS: The bone mineral density of the lumbar spine is 1.359 g/cm2, corresponding to a T-score of 1.5, and a Z-score of 2.6. This is indicative of normal bone mineral density. The bone mineral density of the left total hip is 0.979 g/cm2, corresponding to a T-score of -0.2, and a Z-score of 0.7. This is indicative of normal bone mineral density. The bone mineral density of the left femoral neck is 0.885 g/cm2, corresponding to a T-score of -1.1, and a Z-score of 0.1. This is indicative of osteopenia. FRACTURE RISK: The FRAX index suggests a risk of major osteoporotic fracture of 8.4%, and of hip fracture 0.7%. MM/XR DEXA axial skeleton IMPRESSION: Based on bone mineral density, and according to World Health Organization (WHO) criteria, the diagnosis is consistent with osteopenia. Statistically, 68% of repeat scans fall within 1 SD (+/- 0.010 g/cm2 for AP spine L1-L4) and 1 SD (+/- 0.012 g/cm2 for femur total) FRAX is a trademark of the [employer]'s [place] [facility] Metabolic Bone Disease, a World Health Organization (WHO) Collaborating Center. Electronically signed by: Arden Cherry MD 03/20/2025 11:56 AM [facility]
--- NOTE | ~2025-03-20 | MM_ITS ---
EXAMINATION: MM DIAGNOSTIC DIGITAL BREAST TOMOSYNTHESIS, RIGHT CLINICAL INFORMATION: 6 month follow-up for asymmetry in the superior right breast on MLO view without prior sonographic correlate. COMPARISON: Mammography: Prior's on PACS. TECHNIQUE: Digital breast tomosynthesis is performed in both the craniocaudal and mediolateral oblique views along with computer-aided detection (CAD). Synthesized 2D images are generated from the tomosynthesis. FINDINGS: The breasts are heterogeneously dense, which may obscure small masses. The previously seen asymmetry in the superior breast middle to posterior depth on MLO view without prior sonographic correlate is not significantly changed from prior. No suspicious calcifications or other abnormal findings. MM/MM tomosynthesis diagnostic RT IMPRESSION: Asymmetry in the superior right breast middle to posterior depth on MLO view without prior sonographic correlate is not significantly changed from priors. Recommend 6 month follow-up when patient will be due for bilateral mammography to demonstrate 1 year stability. ASSESSMENT: BI-RADS Category 3: Probably benign RECOMMENDATION: 6 Month F/U Results were provided to the patient at time of visit by the technologist. This patient's information was entered into a reminder system with a target due date for their next mammogram. Electronically signed by: Amparo Maher DO 03/20/2025 11:20 AM [facility]
--- OUTSIDE RECORDS SUMMARY | 2025-03-20 21:32 | XMS_ITS | Clinical Summary ---
Author Organization [facility] Address [address] [facility] [address] [facility] [address] [place] [phone] Phone Care Team Providers Care Watch And Clock Repairer Name Role Phone Daniel Wayne MD Primary Care Provider [phone] Allergies No known active allergies Medications citalopram [...] Take 15 mg by mouth daily. 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 She took [...] her glucose levels. Up to date with [facility]. Reviewed recent labs, labs ordered to [...] his glucose levels. Up to date with [facility]. Labs ordered to be done prior [...] his glucose levels. Up to date with [facility]. Labs ordered to be done prior [...] IQ insulin pump and getting supplies from [employer]. She is using the dexcom G6 CGM and getting supplies from the local pharmacy Assessment & Plan (11/07/2024 3:17 PM EDT): She is using the tandem t-slim control IQ insulin pump and getting supplies from [employer]. She is using the dexcom G6 CGM [...] Encounters Date Type Department Care Team Description 01/21/2025 Orders Only [facility] [address] [place] [address] [place] [address] Thuy Munguia MA Acquired hypothyroidism; DM type 1 with diabetic peripheral neuropathy 01/19/2025 Refill [facility] [address] [place] [address] [place] [address] Ana Hobbs MD Medication Refill 01/19/2025 Refill [facility] [address] [place] [address] [place] [address] Angelia Encinas PA-C Medication Refill 01/16/2025 9:00 AM EDT Nutrition [facility] [address] [place] [address] [place] [address] Carol Ann Beltran MD Dawicki, Jessica Jeanne, LDN 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 (Primary Dx); Insulin pump in place 01/13/2025 Refill [facility] [address] [place] [address] [place] [address] Ana Hobbs MD Medication Refill 12/26/2024 9:40 AM EDT Office Visit [facility] [address] [place] [address] [place] [address] Angelia Encinas PA-C 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); Insulin pump in place; Acquired hypothyroidism; Other dysphagia from Last 3 Months Social History Tobacco [...] Care Team (Late st Contact Info) Description 05/01/2025 2:20 PM EST Office Visit [facility] [address] [place] [address] [place] [address] Ana Hobbs MD [address] [place] [phone] 07/01/2025 8:20 AM EST Office Visit [facility] [address] [phone] Angelia Encinas PA-C [address] [place] [phone] Health Maintenance Due Date Last Done Comments Adult Td,Tdap Booster 1957 DEPRESSION SCREENING 1969 HEPATITIS C SCREENING 11/17/1975 PNEUMOCOCCAL VACCINES (50+ years) (1 of 2 - PCV) 1976 MAMMOGRAM 1997 COLOGUARD 2002 COLONOSCOPY 2002 COLORECTAL CANCER SCREENING 2002 FIT TEST 2002 FOBT 2002 SIGMOIDOSCOPY 2002 VIRTUAL COLONOSCOPY 2002 RSV VACCINE (1 - Risk 50-74 years 1-dose series) 11/17/2007 ZOSTER VACCINES (1 of 2) 11/17/2007 OSTEOPOROSIS SCREENING INITIAL (ONE-TIME) 2022 DIABETIC EYE EXAM 03/30/2023 HEMOGLOBIN A1C 03/23/2024 09/21/2023 INFLUENZA VACCINE (#1) 2024 COVID-19 VACCINE ( - season) 2024 BLOOD PRESSURE 06/28/2025 12/26/2024 CREATININE LEVEL 01/15/2026 01/15/2025, , 05/18/2023 POTASSIUM LEVEL 01/15/2026 01/15/2025, 05/18/2023 TSH LEVEL 01/15/2026 01/15/2025, 06/02, 09/21/2023, Additional history exists SMOKING STATUS SCREENING (Once After 26 Yrs) Completed 03/27/2024 HEPATITIS A VACCINES Aged Out No long er eligible based on patient's age to complete this topic HIB VACCINES Aged Out No longer eligi ble based on patient's age to complete this topic IPV VACCINES Aged Out No longer eligi ble based on patient's age to complete this topic MENINGOCOCCAL VACCINES (ACWY) Aged Out No longer eligible based on patient's age to complete this topic MENINGOCOCCAL VACCINES (B) Aged Out N o longer eligible based on patient's age to complete this topic Medical Devices Not on file Procedures Procedure Name Priority Date/Time Associated Diagnosis Comments HEMOGLOBIN A1C Routine 01/15/2025 3:26 PM EDT DM type 1 with diabetic peripheral neuropathy ALANINE AMINOTRANSFERASE (ALT) Routine 01/15/2025 3:26 PM EDT DM type 1 with diabetic peripheral neuropathy ASPARTATE AMINOTRANSFERASE (AST) Routine 01/15/2025 3:26 PM EDT DM type 1 with diabetic peripheral neuropathy BASIC METABOLIC PANEL (BMP) Routine 01/15/2025 3:26 PM EDT DM type 1 with diabetic peripheral neuropathy TSH WITH REFLEX Routine 01/15/2025 3:26 PM EDT Acquired hypothyroidism HEMOGLOBIN A1C Routine 09/21/2023 9:13 AM EDT 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 Blood us Angelia Encinas PA-C LAB BLOOD BKR CHRIS REYEZ Final Result [address] [id number] * Alanine aminotransferase (ALT) (01/15/2025 3:26 PM EDT) Blood Angelia Abbie Encinas PA-C LAB BLOOD BKR ORDE RABLES Final Result Performing Organization Address [facility] Co de Phone Number [address] [phone] * Aspartate aminotransferase (AST) (01/15/2025 3:26 PM EDT) Blood Angelia HANSEN-C LAB BLOOD BKR ORDE RABLES Final Result Performing Organization Address [facility] Co de Phone Number [address] [phone] * Basic metabolic panel (01/15/2025 3:26 PM EDT) Blood Angelia Encinas PA-C LAB BLOOD BKR ORDE RABLES Final Result Performing Organization Address [facility] Co de Phone Number [address] [phone] * TSH with reflex (01/15/2025 3:26 PM EDT) Blood Angelia HANSEN-C LAB BLOOD BKR ORDE RABLES Final Result Performing Organization Address [facility] Co de Phone Number [address] [phone] from Last 3 Months or Most Recently Relevant to Health Maintenance [place] [address] [facility] PPO CIG PPO CIG PPO CIGNA PPO Member Subscriber Plan / Payer (Ef fective 2019-Present) Name:Amy Jay Relation to Subscriber:Self Name:Amy Jya Payer ID:[id number] (NAIC) Type:PPO Address: [address] [place] [id number] [employer] PPO [employer] PPO Care Teams Watch And Clock Repairer Relationship Specialty Start Date End Date Daniel Wayne MD [address] [place] [address] [place] [address] PCP - General Internal Medicine 01/06/23 Additional Source Comments The information contained in this document represents components of the legal health record. It is not the complete legal health record.[facility]
== END 2025-03-20 10:55 | disposition home or self-care (01) ==
LOC: HO.MAMMO 10:54
DX: Z78.0 Asymptomatic menopausal state (principal); Z12.31 Encounter for screening mammogram for malignant neoplasm of breast
CPT/HCPCS: 77061; 77065; 77080

== ENCOUNTER → 2025-03-20 11:30 | Outpatient (BNV) | payer OTHER, SELFPAY | PROVIDERS: Visit Provider Radiology Diagnostic Radiology | DX: E28.39 Other primary ovarian failure (principal); R92.8 Other abnormal and inconclusive findings on diagnostic imaging of breast | CPT/HCPCS: 77061; 77065; 77080 ==